=== PATIENT | female | born 1965 | race Caucasian/White ===

== ENCOUNTER 2017-02-12 10:39 | Emergency (ER) | payer MEDICARE, OTHER ==
[2017-02-12] MEDS ORDERED: SODIUM CHLORIDE 0.9% 500 ML IV STA (11:08)
[2017-02-12] MEDS ORDERED: SODIUM CHLORIDE 0.9% 1,000 ML IV STA (11:08)
[2017-02-12] MEDS ORDERED: PANTOPRAZOLE 40 MG/10 ML VIAL IVP STA (11:08)
[2017-02-12 11:39] LABS: Basophils # (A) 0.1 k/uL (0-0.2); Basophils % (A) 1 %; Eosinophils # (A) 0.4 k/uL (0-0.7); Eosinophils % (A) 5 %; HCT 45.6 % (34.0-46.0); HGB 15.3 gm/dL (11.4-16.0); Lymphocytes # (A) 3.5 k/uL (1.0-4.8); Lymphocytes % (A) 39 %; MCH 30.4 pg (25.0-35.0); MCHC 33.5 g/dL (31.0-37.0); MCV 90.7 fL (80.0-100.0); Monocytes # (A) 0.5 k/uL (0-1.0); Monocytes % (A) 6 %; Neutrophils # (A) 4.2 k/uL (1.3-7.7); Neutrophils % (A) 47 %; Platelet Count 324 k/uL (150-450); RBC 5.03 m/uL (3.80-5.40); RDW 12.6 % (11.5-15.5); WBC 8.9 k/uL (3.8-10.6)
[2017-02-12 11:49] LABS: ALT 33 U/L (9-52); AST 20 U/L (14-36); Albumin 4.2 g/dL (3.5-5.0); Alkaline Phosphatase 93 U/L (38-126); Anion Gap 9 mmol/L; Blood Urea Nitrogen 14 mg/dL (7-17); Calcium 9.9 mg/dL (8.4-10.2); Carbon Dioxide 26 mmol/L (22-30); Chloride 106 mmol/L (98-107); Glucose 164 mg/dL (74-99); Lipase 59 U/L (23-300); Magnesium 1.7 mg/dL (1.6-2.3); Potassium 4.3 mmol/L (3.5-5.1); Sodium 141 mmol/L (137-145); Total Bilirubin 0.4 mg/dL (0.2-1.3); Total Protein 7.5 g/dL (6.3-8.2)
--- NOTE | 2017-02-12 11:55 | ED ---
General Adult HPI - General Chief complaint: GI Bleed Stated complaint: rectal pain Time Seen by Provider: 02/12/17 11:07 Source: patient, RN notes reviewed, old records reviewed Mode of arrival: ambulatory Limitations: no limitations - History of Present Illness Initial comments: THis is a 52 year old female to the ED for evaluation of bowel pain, epigastric and left-sided abdominal pain. No nausea no vomiting. Patient admitted admittedly has blood in her stool. She denies feelings of lightheadedness dizziness or weakness. Denies feeling weeks ago pass out. Patient has no fevers. No other complaints. - Related Data Home Medications Medication Instructions Recorded Confirmed Insulin Glargine [Lantus] 80 - 100 unit SQ HS 05/19/14 02/12/17 Ibuprofen [Motrin] 800 mg PO Q8H PRN 10/06/15 02/12/17 Insulin Aspart [NovoLOG] See Protocol SQ AC-TID PRN 12/24/16 02/12/17 ALPRAZolam [Xanax] 0.5 mg PO HS PRN 02/12/17 02/12/17 Previous Rx's Medication Instructions Recorded Ciprofloxacin HCl [Cipro] 500 mg PO Q12HR #20 tablet 02/12/17 HYDROcodone/APAP 5-325MG [[place] 1 tab PO Q6HR PRN #20 tab 02/12/17 5-325] Ondansetron Odt [Zofran ODT] 4 mg PO Q8HR PRN #30 tab 02/12/17 metroNIDAZOLE [Flagyl] 500 mg PO TID #30 tab 02/12/17 Allergies Allergy/AdvReac Type Severity Reaction Status Date / Time nickel [Nickel] Allergy PAIN FROM Verified 02/12/17 11:30 KNEE IMPLANT Review of Systems ROS Statement: Those systems with pertinent positive or pertinent negative responses have been documented in the HPI. ROS Other: All systems not noted in ROS Statement are negative. Past Medical History Past Medical History: Asthma, COPD, Diabetes Mellitus, GERD/Reflux, Osteoarthritis (OA), Sleep Apnea/CPAP/BIPAP, Thyroid Disorder Additional Past Medical History / Comment(s): HX SUPERFICIAL BLOOD CLOTS IN LEGS. HAS VARICOSE VEINS. RLS. HAS SL SLEEP APNEA, NO TX REQUIRED. HIATAL HERNIA. THYROID NODULES, ENGLARGED. History of Any Multi-Drug Resistant Organisms: None Reported Past Surgical History: Bladder Surgery, Joint Replacement, Orthopedic Surgery Additional Past Surgical History / Comment(s): BINA TOTAL KNEE, LT X2. CTR LT HAND; LT ULNAR NERVE REPAIR; LT ANKLE SPUR, MUSCLE SURG; LT SHOULDER RECONSTRUCTION. COLONOSCOPY, EGD. D&C, BLADDER SUSPENSION W/ MESH. Past Anesthesia/Blood Transfusion Reactions: Previous Problems w/ Anesthesia, Motion Sickness Additional Past Anesthesia/Blood Transfusion Reaction / Comment(s): TAKES AWHILE TO AWAKEN AFTER KNEE REPLACEMENTS. Past Psychological History: Anxiety, Depression Smoking Status: Current every day smoker Past Alcohol Use History: None Reported Past Drug Use History: None Reported - Past Family History Mother Family Medical History: Cancer, Deep Vein Thrombosis (DVT) Additional Family Medical History / Comment(s): ESOPHAGEAL CA Father Family Medical History: Deep Vein Thrombosis (DVT) General Exam Limitations: no limitations General appearance: alert, in no apparent distress Head exam: Present: atraumatic, normocephalic, normal inspection Eye exam: Present: normal appearance, PERRL, EOMI. Absent: scleral icterus, conjunctival injection, periorbital swelling ENT exam: Present: normal exam, mucous membranes moist Neck exam: Present: normal inspection. Absent: tenderness, meningismus, lymphadenopathy Respiratory exam: Present: normal lung sounds bilaterally. Absent: respiratory distress, wheezes, rales, rhonchi, stridor Cardiovascular Exam: Present: regular rate, normal rhythm, normal heart sounds. Absent: systolic murmur, diastolic murmur, rubs, gallop, clicks GI/Abdominal exam: Present: soft, normal bowel sounds. Absent: distended, tenderness, guarding, rebound, rigid Extremities exam: Present: normal inspection, full ROM, normal capillary refill. Absent: tenderness, pedal edema, joint swelling, calf tenderness Back exam: Present: normal inspection Neurological exam: Present: alert, oriented X3, CN II-XII intact Psychiatric exam: Present: normal affect, normal mood Skin exam: Present: warm, dry, intact, normal color. Absent: rash Course Vital Signs 02/12/17 02/12/17 02/12/17 11:02 12:20 13:00 Temperature 98 F Pulse Rate 104 H 85 83 Respiratory 16 18 18 Rate Blood Pressure 124/85 129/83 129/81 O2 Sat by Pulse 95 100 92 L Oximetry 02/12/17 02/12/17 14:27 15:14 Temperature 98.2 F Pulse Rate 68 Respiratory 19 Rate Blood Pressure 103/60 O2 Sat by Pulse 98 Oximetry - Reevaluation(s) Reevaluation #1: Patient does have improvement in symptoms at this time Medical Decision Making - Medical Decision Making 52 female to ER for evaluation regarding abdominal pain and rectal pain, positive diverticulitis, patient opts for conservative therapy. Patient can be discharged home - Lab Data Result diagrams: 02/12/17 11:02/12/17 11: Lab Results 02/12/17 02/12/17 02/12/17 Range/Units 11:17 11: 11:17 WBC 8.9 (3.8-10.6) k/uL RBC 5.03 (3.80-5.40) m/uL Hgb 15.3 (11.4-16.0) gm/dL Hct 45.6 (34.0-46.0) % MCV 90.7 (80.0-100.0) fL MCH 30.4 (25.0-35.0) pg MCHC 33.5 (31.0-37.0) g/dL RDW 12.6 (11.5-15.5) % Plt Count 324 (150-450) k/uL Neutrophils % 47 % Lymphocytes % 39 % Monocytes % 6 % Eosinophils % 5 % Basophils % 1 % Neutrophils # 4.2 (1.3-7.7) k/uL Lymphocytes # 3.5 (1.0-4.8) k/uL Monocytes # 0.5 (0-1.0) k/uL Eosinophils # 0.4 (0-0.7) k/uL Basophils # 0.1 (0-0.2) k/uL PT (9.0-12.0) sec INR (<1.2) APTT (22.0-30.0) sec Sodium 141 (137-145) mmol/L Potassium 4.3 (3.5-5.1) mmol/L Chloride 106 (98-107) mmol/L Carbon Dioxide 26 (22-30) mmol/L Anion Gap 9 mmol/L BUN 14 (7-17) mg/dL Creatinine 0.45 L (0.52-1.04) mg/dL Est GFR (MDRD) Af Amer >60 (>60 ml/min/1.73 sqM) Est GFR (MDRD) Non-Af >60 (>60 ml/min/1.73 sqM) Glucose 164 H (74-99) mg/dL Calcium 9.9 (8.4-10.2) mg/dL Magnesium 1.7 (1.6-2.3) mg/dL Total Bilirubin 0.4 (0.2-1.3) mg/dL AST 20 (14-36) U/L ALT 33 (9-52) U/L Alkaline Phosphatase 93 (38-126) U/L Total Creatine Kinase 57 (30-135) U/L CK-MB (CK-2) 0.6 (0.0-2.4) ng/mL CK-MB (CK-2) Rel Index 1.1 Troponin I <0.012 (0.000-0.034) ng/mL Total Protein 7.5 (6.3-8.2) g/dL Albumin 4.2 (3.5-5.0) g/dL Lipase 59 (23-300) U/L Blood Type Blood Type Recheck Antibody Screen Spec Expiration Date 02/12/17 02/12/17 Range/Units 11:17 11:17 WBC (3.8-10.6) k/uL RBC (3.80-5.40) m/uL Hgb (11.4-16.0) gm/dL Hct (34.0-46.0) % MCV (80.0-100.0) fL MCH (25.0-35.0) pg MCHC (31.0-37.0) g/dL RDW (11.5-15.5) % Plt Count (150-450) k/uL Neutrophils % % Lymphocytes % % Monocytes % % Eosinophils % % Basophils % % Neutrophils # (1.3-7.7) k/uL Lymphocytes # (1.0-4.8) k/uL Monocytes # (0-1.0) k/uL Eosinophils # (0-0.7) k/uL Basophils # (0-0.2) k/uL PT 9.9 (9.0-12.0) sec INR 1.0 (<1.2) APTT 21.9 L (22.0-30.0) sec Sodium (137-145) mmol/L Potassium (3.5-5.1) mmol/L Chloride (98-107) mmol/L Carbon Dioxide (22-30) mmol/L Anion Gap mmol/L BUN (7-17) mg/dL Creatinine (0.52-1.04) mg/dL Est GFR (MDRD) Af Amer (>60 ml/min/1.73 sqM) Est GFR (MDRD) Non-Af (>60 ml/min/1.73 sqM) Glucose (74-99) mg/dL Calcium (8.4-10.2) mg/dL Magnesium (1.6-2.3) mg/dL Total Bilirubin (0.2-1.3) mg/dL AST (14-36) U/L ALT (9-52) U/L Alkaline Phosphatase (38-126) U/L Total Creatine Kinase (30-135) U/L CK-MB (CK-2) (0.0-2.4) ng/mL CK-MB (CK-2) Rel Index Troponin I (0.000-0.034) ng/mL Total Protein (6.3-8.2) g/dL Albumin (3.5-5.0) g/dL Lipase (23-300) U/L Blood Type B Positive Blood Type Recheck CABO Indicated Antibody Screen NEGATIVE Spec Expiration Date 02/12/2017 - 1217 - Radiology Data Radiology results: report reviewed (CT of pelvis positive for diverticulitis), image reviewed Disposition Clinical Impression: Acute diverticulitis Disposition: HOME SELF-CARE Condition: Good Instructions: Diverticulitis (ED) Prescriptions: Ciprofloxacin HCl [Cipro] 500 mg PO Q12HR #20 tablet HYDROcodone/APAP 5-325MG [Caroline 5-325] 1 tab PO Q6HR PRN #20 tab PRN Reason: Pain metroNIDAZOLE [Flagyl] 500 mg PO TID #30 tab Ondansetron Odt [Zofran ODT] 4 mg PO Q8HR PRN #30 tab PRN Reason: nausea/vomiting Referrals: Dana Akbar MD [Primary Care Provider] - 1-2 days
[2017-02-12 11:59] LABS: Creatine Kinase 57 U/L (30-135)
[2017-02-12 12:08] LABS: Partial Thromboplastin Time 21.9 sec (22.0-30.0); Prothrombin Time 9.9 sec (9.0-12.0)
[2017-02-12 12:12] LABS: Creatine Kinase MB 0.6 ng/mL (0.0-2.4); Troponin I <0.012 ng/mL (0.000-0.034)
[2017-02-12] MEDS ORDERED: RX INFO: IV CONTRAST WAS GIVEN 1 EACH MISC MISCELLANE PRN (13:11)
[2017-02-12 14:29] VITALS: BP 103/60; PULSE 68; RESP 19
--- NOTE | 2017-02-12 14:39 | CT ---
EXAMINATION TYPE: CT abdomen pelvis w con DATE OF EXAM: 02/12/2017 COMPARISON: NONE HISTORY: Rectal pain CT DLP: 2197.3 mGycm CONTRAST: CT scan of the abdomen and pelvis is performed without Oral Contrast and with IV Contrast, patient in jected with 100 mL of Omnipaque 300. FINDINGS: LUNG BASES-: No visible nodule. No infiltrate. LIVER/GB: No calcified gallstones. No space occupying hepatic lesion. Biliary tree is of normal ca liber. There is fatty hepatic infiltration. PANCREAS: No inflammation. No distinct mass. SPLEEN: No splenic enlargement. No lesion seen. ADRENALS: No nodule. No thickening. KIDNEYS/BLADDER: No hydronephrosis. No nephrolithiasis. No disctinct renal mass. Urinary bladder g rossly unremarkable. BOWEL: Normal appendix. Normal bowel caliber. No inflammation. At the descending colonic/sigmoid co lonic junction there is mild inflammatory change noted compatible with mild diverticulitis. No eviden ce of perforation or abscess. GENITAL ORGANS: No gross abnormality. LYMPH NODES: No greater than 1cm abdominal or pelvic lymph nodes are appreciated. AORTA: No significant abnormality. OSSEOUS STRUCTURES: No significant abnormality is seen. OTHER: No significant additional abnormality is seen. IMPRESSION: 1. Mild acute diverticulitis.
[2017-02-12 15:16] VITALS: TEMP 98.2
--- NOTE | 2017-02-15 03:55 | CDI ---
Documentation Clarification OP Dear Jean Marie BENITEZ, DO Please do addendum to ED report for HPI , Physical exam and MDM. Thank you, Heather Aldana Plant General Manager If you have any question, Please contact electrical project manager at [phone] [facility]
== END 2017-02-12 15:15 | disposition home or self-care (01) ==
LOC: EC 10:39
DX: K57.92 Diverticulitis of intestine, part unspecified, without perforation or abscess without bleeding (principal); E11.9 Type 2 diabetes mellitus without complications; F17.200 Nicotine dependence, unspecified, uncomplicated; Z79.4 Long term (current) use of insulin; Z91.09 Other allergy status, other than to drugs and biological substances
CPT/HCPCS: 36415; 86900; 86901; 80053; 82550; 82553; 83690; 83735; 84484; 85025; 85610; 85730; 86850; 74177; 99285; 96374; 96361 ×4; Q9967; C9113

== ENCOUNTER 2017-03-24 09:01 | Inpatient (IN) | payer MEDICARE, OTHER ==
[2017-03-23 09:37] VITALS: BMI 39.4
[~2017-03-24 09:01] MED LIST: HEPARIN SODIUM,PORCINE 5,000 UNIT/ML 1 ML VIAL SQ ONE; HYDROmorphone 0.5 MG/0.5 ML SYRINGE IVP PRN; LIDOCAINE 1% 20 ML VIAL (10MG/ML) FOR IV START INTRADERMA PRN; ceFAZolin IN SWFI 2 GM/20 ML SYRINGE IVP ONE; metroNIDAZOLE-NS PMX 500 MG in SALINE 1 100ML.BAG IVPB ONE
[2017-03-24] MEDS: LACTATED RINGERS 1,000 ML IV SCH ×2 (10:45→19:26)
[2017-03-24 10:55] LABS: Glucose,Whole Blood 237 mg/dL (75-99)
[2017-03-24 10:59] LABS: Basophils # (A) 0.1 k/uL (0-0.2); Basophils % (A) 1 %; Eosinophils # (A) 0.3 k/uL (0-0.7); Eosinophils % (A) 4 %; HCT 47.2 % (34.0-46.0); HGB 15.4 gm/dL (11.4-16.0); Lymphocytes # (A) 2.9 k/uL (1.0-4.8); Lymphocytes % (A) 34 %; MCHC 32.6 g/dL (31.0-37.0); MCV 92.1 fL (80.0-100.0); Mean Platelet Volume 7.1; Monocytes # (A) 0.5 k/uL (0-1.0); Monocytes % (A) 6 %; Neutrophils # (A) 4.6 k/uL (1.3-7.7); Neutrophils % (A) 54 %; Platelet Count 304 k/uL (150-450); RBC 5.13 m/uL (3.80-5.40); RDW 12.7 % (11.5-15.5); WBC 8.6 k/uL (3.8-10.6)
[2017-03-24] MEDS ORDERED: MIDAZOLAM 2 MG/2 ML VIAL IVP ONE (11:06)
[2017-03-24] MEDS ORDERED: fentaNYL (PF) 50 MCG/ML 2 ML AMP IVP ONE (11:07)
[2017-03-24 11:15] LABS: Anion Gap 11 mmol/L; Blood Urea Nitrogen 12 mg/dL (7-17); Carbon Dioxide 25 mmol/L (22-30); Chloride 105 mmol/L (98-107); Potassium 4.2 mmol/L (3.5-5.1); Sodium 141 mmol/L (137-145)
[2017-03-24] MEDS ORDERED: NALOXONE 0.4 MG/ML 1 ML VIAL IV PRN (11:15)
[2017-03-24] MEDS ORDERED: BUPIVACAINE (PF) 0.5% 31.3 ML, HYDROMORPHONE (PF) 5 MG in SODIUM CHLORIDE 0.9% 218 ML EPIDURAL PRN (11:15)
--- NOTE | 2017-03-24 11:16 | P.GSHP ---
History of Present Illness H&P Date: 03/24/17 Chief Complaint: Diverticulitis This a 52-year-old female with a chronic history of diverticulitis. Patient had complaints of left lower quadrant pain and intermittent rectal bleeding. She sees Dr. Coleman as an outpatient. Past Medical History Past Medical History: Asthma, COPD, Diabetes Mellitus, GERD/Reflux, Osteoarthritis (OA), Sleep Apnea/CPAP/BIPAP, Thyroid Disorder Additional Past Medical History / Comment(s): HX SUPERFICIAL BLOOD CLOTS IN LEGS. HAS VARICOSE VEINS. RLS. HAS SLEEP APNEA-NO TX REQUIRED. HIATAL HERNIA , hx. h-pylori, THYROID NODULES, diverticulitis recently History of Any Multi-Drug Resistant Organisms: None Reported Past Surgical History: Bladder Surgery, Joint Replacement, Orthopedic Surgery Additional Past Surgical History / Comment(s): BINA TOTAL KNEE, LT X2. CTR LT HAND; LT ULNAR NERVE REPAIR; LT ANKLE SPUR, MUSCLE SURG; LT SHOULDER RECONSTRUCTION. COLONOSCOPY, EGD. D&C, BLADDER SUSPENSION W/ MESH. Past Anesthesia/Blood Transfusion Reactions: Previous Problems w/ Anesthesia, Motion Sickness Additional Past Anesthesia/Blood Transfusion Reaction / Comment(s): slow to wake up @times Past Psychological History: Anxiety, Depression Additional Psychological History / Comment(s): NO CURRENT PROB Smoking Status: Current every day smoker Past Alcohol Use History: None Reported Additional Past Alcohol Use History / Comment(s): SMOKES LITTLE CIGARS/ CIGARETTES < 1/2 PPD, X40 YEARS. Past Drug Use History: None Reported - Past Family History Mother Family Medical History: Cancer, Deep Vein Thrombosis (DVT) Additional Family Medical History / Comment(s): ESOPHAGEAL CA Father Family Medical History: Deep Vein Thrombosis (DVT) Medications and Allergies Home Medications Medication Instructions Recorded Confirmed Type Insulin Glargine [Lantus] 100 unit SQ HS 05/19/14 03/24/17 History Ibuprofen [Motrin] 800 mg PO Q8H PRN 10/06/15 03/23/17 History Insulin Aspart [NovoLOG] 10 - 20 unit SQ AC-TID 12/24/16 03/24/17 History ALPRAZolam [Xanax] 0.5 mg PO HS PRN 02/12/17 03/24/17 History HYDROcodone/APAP 5-325MG [[place] 1 tab PO Q6HR PRN #20 tab 02/12/17 03/24/17 Rx 5-325] Albuterol Inhaler [Ventolin Hfa 1 - 2 puff INHALATION Q6HR PRN 03/23/17 History Inhaler] Cyclobenzaprine [Flexeril] 10 mg PO TID PRN 03/23/17 03/24/17 History Allergies Allergy/AdvReac Type Severity Reaction Status Date / Time nickel [Nickel] Allergy PAIN FROM Verified 03/23/17 08:55 KNEE IMPLANT Surgical - Exam Vital Signs Temp Pulse Resp BP Pulse Ox 98.5 F 96 18 120/64 95 03/24/17 10:15 03/24/17 10:15 03/24/17 10:15 03/24/17 10:15 03/24/17 10:15 - General well developed, no distress - Eyes PERRL - ENT normal pinna - Neck no masses - Respiratory normal expansion - Cardiovascular Rhythm: regular - Abdomen Left lower quadrant pain Abdomen: soft Results - Labs 03/24/17 10:40 Abnormal Lab Results - Last 24 Hours (Table) 03/24/17 03/24/17 Range/Units 10:40 10:40 Hct 47.2 H (34.0-46.0) % POC Glucose (mg/dL) 237 H (75-99) mg/dL Assessment and Plan Assessment: Chronic diverticulitis. Patient will undergo low anterior resection today. Patient's aware the risk of surgery including possible colostomy, bleeding and wound infection.
[2017-03-24] MEDS ORDERED: DEXAMETHASONE SOD PHOSPHATE 10 MG/ML 1 ML VIAL IV ONE (11:22)
[2017-03-24] MEDS ORDERED: ONDANSETRON 4 MG/2 ML VIAL IVP ONE (11:24)
[2017-03-24] MEDS ORDERED: GLYCOPYRROLATE 0.2 MG/ML 2 ML VIAL ONE (11:46)
[2017-03-24] MEDS ORDERED: HYDROmorphone (PF) 1 MG/ML ONE (11:46)
[2017-03-24] MEDS ORDERED: LIDOCAINE 1% INJ 10MG/ML (20 ML MDV) ONE (11:46)
[2017-03-24] MEDS ORDERED: ROCURONIUM BROMIDE 10 MG/ML 10 ML VIAL IV ONE (11:46)
[2017-03-24] MEDS ORDERED: SUCCINYLCHOLINE CHLORIDE 100 MG/5 ML SYR IV ONE (11:46)
[2017-03-24] MEDS ORDERED: PROPOFOL 10 MG/ML 20 ML VIAL IV ONE (11:46)
[2017-03-24] MEDS ORDERED: NEOSTIGMINE 1 MG/ML 10 ML VIAL ONE (11:46)
[2017-03-24] MEDS ORDERED: SODIUM CHLORIDE 0.9% 50 ML with CLINDAMYCIN 600 MG IV ONE ×2 (12:22)
[2017-03-24] MEDS ORDERED: HYDROmorphone 0.5 MG/0.5 ML SYRINGE IVP PRN (13:24)
[2017-03-24] MEDS ORDERED: BENZOCAINE/MENTHOL LOZENG 1 EACH LOZENGE MUCOUS MEM PRN (13:24)
[2017-03-24 13:54] LABS: Glucose,Whole Blood 203 mg/dL (75-99)
[2017-03-24] MEDS ORDERED: diphenhydrAMINE 50 MG/ML 1 ML VIAL IVP ONE (13:58)
[2017-03-24] MEDS ORDERED: INSULIN REGULAR 100 UNIT/ML VIAL SQ ONE (14:06)
[2017-03-24] MEDS ORDERED: INSULIN ASPART 100 UNIT/ML 1 ML 10 ML VIAL SQ ONE (14:11)
[2017-03-24] MEDS ORDERED: D5-0.45% NACL WITH KCL 20MEQ/L 1,000 ML IV SCH (15:00)
[2017-03-24] MEDS ORDERED: SODIUM CHLORIDE 0.9% 1,000 ML IV ONE (15:07)
[2017-03-24 16:33] LABS: Basophils # (A) 0.1 k/uL (0-0.2); Basophils % (A) 0 %; Eosinophils # (A) 0.1 k/uL (0-0.7); Eosinophils % (A) 1 %; HCT 44.4 % (34.0-46.0); HGB 14.2 gm/dL (11.4-16.0); Lymphocytes # (A) 0.8 k/uL (1.0-4.8); Lymphocytes % (A) 6 %; MCH 30.2 pg (25.0-35.0); MCV 94.5 fL (80.0-100.0); Mean Platelet Volume 7.4; Monocytes # (A) 0.3 k/uL (0-1.0); Monocytes % (A) 2 %; Neutrophils # (A) 13.4 k/uL (1.3-7.7); Neutrophils % (A) 91 %; Platelet Count 274 k/uL (150-450); RBC 4.69 m/uL (3.80-5.40); RDW 13.7 % (11.5-15.5); WBC 14.7 k/uL (3.8-10.6)
[2017-03-24 16:45] LABS: Anion Gap 8 mmol/L; Blood Urea Nitrogen 15 mg/dL (7-17); Calcium 8.9 mg/dL (8.4-10.2); Carbon Dioxide 28 mmol/L (22-30); Chloride 106 mmol/L (98-107); Glucose 174 mg/dL (74-99); Potassium 4.4 mmol/L (3.5-5.1); Sodium 142 mmol/L (137-145)
[2017-03-24 18:08] LABS: Glucose,Whole Blood 157 mg/dL (75-99)
[2017-03-24] MEDS: INSULIN ASPART 100 UNIT/ML 1 ML 10 ML VIAL SQ SCH (19:33)
[2017-03-24] MEDS: HEPARIN SODIUM,PORCINE 5,000 UNIT/ML 1 ML VIAL SQ SCH (19:36)
[2017-03-24] MEDS: NICOTINE 14MG/24HR PATCH TRANSDERM SCH (19:40)
[2017-03-24] MEDS ORDERED: SODIUM CHLORIDE 0.9% 500 ML IV ONE (20:20)
[2017-03-24] MEDS: IPRATROPIUM-ALBUTEROL 3 ML NEB INHALATION SCH (20:53)
[2017-03-24 21:13] LABS: Amorphous Sediment,Urine Occasional /hpf; Appearance,Urine Turbid (Clear); Bilirubin,Urine Negative (Negative); Blood,Urine Moderate (Negative); Color,Urine Light Orange; Glucose,Urine (UA) 1+ (Negative); Ketones,Urine Trace (Negative); Leukocyte Esterase,Urine Small (Negative); Mucus,Urine Few /hpf; Nitrite,Urine Negative (Negative); PH, Urine 5.5 (5.0-8.0); Protein,Urine 1+ (Negative); RBC,Urine 29 /hpf (0-5); Specific Gravity,Urine 1.024 (1.001-1.035); Squamous Epithelial Cell,Urine 2 /hpf (0-4); Urobilinogen,Urine <2.0 mg/dL (<2.0)
[2017-03-24 21:14] LABS: Glucose,Whole Blood 168 mg/dL (75-99)
[2017-03-24 21:29] LABS: ALT 32 U/L (9-52); AST 18 U/L (14-36); Albumin 3.3 g/dL (3.5-5.0); Alkaline Phosphatase 82 U/L (38-126); Anion Gap 7 mmol/L; Blood Urea Nitrogen 16 mg/dL (7-17); Calcium 8.7 mg/dL (8.4-10.2); Carbon Dioxide 25 mmol/L (22-30); Chloride 108 mmol/L (98-107); Glucose 174 mg/dL (74-99); Potassium 4.3 mmol/L (3.5-5.1); Sodium 140 mmol/L (137-145); Total Bilirubin 0.3 mg/dL (0.2-1.3)
--- NOTE | 2017-03-24 21:35 | XR ---
EXAMINATION: XR chest 1V portable DATE AND TIME: 03/24/2017 8:45 PM ORDERING PROVIDER: Arie Webber MD CLINICAL INDICATION: atelectasis TECHNIQUE: Upright AP portable COMPARISON: None. DESCRIPTION: The lungs are clear. The pleural spaces are negative. The cardiac silhouette is not enlarged. The mediastinal and pleural silhouettes are unremarkable. The skeletal structures are intact without focal findings. The soft tissues are unremarkable. IMPRESSION: NO ACUTE PROCESS.
[2017-03-24] MEDS: INSULIN DETEMIR 100 UNIT/ML 10 ML VIAL SQ SCH (22:14)
[2017-03-24] MEDS: FAMOTIDINE 20 MG/2 ML VIAL IV SCH (22:14)
[2017-03-24] MEDS: PANTOPRAZOLE 40 MG/10 ML VIAL IVP SCH (22:15)
[2017-03-24] MEDS: SODIUM CHLORIDE 0.9% 1,000 ML IV SCH (22:15)
[2017-03-25 00:10] LABS: Glucose,Whole Blood 161 mg/dL (75-99)
[2017-03-25] MEDS: INSULIN ASPART 100 UNIT/ML 1 ML 10 ML VIAL SQ SCH ×6 (01:02→20:50)
[2017-03-25] MEDS: HEPARIN SODIUM,PORCINE 5,000 UNIT/ML 1 ML VIAL SQ SCH ×4 (01:03→23:13)
[2017-03-25] MEDS ORDERED: SODIUM CHLORIDE 0.9% 500 ML IV ONE ×2 (01:03→01:24)
[2017-03-25 02:14] LABS: Hemoglobin A1C 10.3 % (4.0-6.0)
[2017-03-25 02:39] LABS: Basophils % (A) 0 %; Eosinophils # (A) 0.1 k/uL (0-0.7); Eosinophils % (A) 0 %; HCT 39.8 % (34.0-46.0); HGB 12.4 gm/dL (11.4-16.0); Lymphocytes # (A) 1.6 k/uL (1.0-4.8); Lymphocytes % (A) 13 %; MCH 29.6 pg (25.0-35.0); MCHC 31.2 g/dL (31.0-37.0); MCV 94.9 fL (80.0-100.0); Mean Platelet Volume 6.9; Monocytes # (A) 0.6 k/uL (0-1.0); Monocytes % (A) 5 %; Neutrophils # (A) 10.5 k/uL (1.3-7.7); Neutrophils % (A) 82 %; Platelet Count 256 k/uL (150-450); RBC 4.19 m/uL (3.80-5.40); RDW 12.7 % (11.5-15.5); WBC 12.9 k/uL (3.8-10.6)
[2017-03-25 06:04] LABS: Glucose,Whole Blood 111 mg/dL (75-99)
[2017-03-25] MEDS: ONDANSETRON 4 MG/2 ML VIAL IVP PRN ×2 (06:37→14:33)
[2017-03-25] MEDS: SODIUM CHLORIDE 0.9% 1,000 ML IV SCH ×4 (06:38→23:31)
[2017-03-25] MEDS ORDERED: NALOXONE 0.4 MG/ML 1 ML VIAL IV PRN (06:44)
--- NOTE | 2017-03-25 07:09 | CONS ---
CONSULTATION THE REASON FOR CONSULTATION: Advice regarding hypotension and other medical issues requested by Dr. Gonzalez. HISTORY OF PRESENT ILLNESS: This 52-year-old woman with a past medical history of multiple medical problems including asthma, COPD, diabetes, GERD, DJD being followed by Dr. Akbar in the outpatient setting underwent a low anterior rectosigmoid resection for diverticulitis by Dr. Gonzalez. Postoperatively, the patient noted to be hypotensive. Patient also had some shortness of breath and some cough also. The patient is a smoker. There is no history of fever, rigors. No history of headache, loss of consciousness, seizures. No chest pain, palpitations, hematochezia or melena at this time. The patient has some erythema around the oral cavity, face. PAST MEDICAL HISTORY: History of asthma, COPD, diabetes, GERD, DJD, sleep apnea, history of bladder surgery. MEDICATIONS: Medications prior to admission include. 1. Lantus 100 units subcu q.h.s. 2. NovoLog 10 to 20 a.c. t.i.d. 3. Motrin 800 mg q.8 p.r.n. 4. [place] 5 mg q.6 p.r.n. 5. Flexeril 10 mg t.i.d. p.r.n. 6. Ventolin HFA 1 to 2 puffs q.6 p.r.n. 7. Xanax 0.5 mg q.h.s. ALLERGIES: Allergies are NICKEL. FAMILY HISTORY: History of cancer, DVT, esophageal cancer. SOCIAL HISTORY: History of smoking. No history of alcohol intake. REVIEW OF SYSTEMS: ENT: No diminished hearing or diminished vision. CARDIOVASCULAR SYSTEM: As mentioned earlier. RESPIRATORY SYSTEM: As mentioned earlier. GI: As mentioned earlier. : No dysuria. NERVOUS SYSTEM: No numbness or weakness. ALLERGY/IMMUNOLOGY: neg MUSCULOSKELETAL: As mentioned earlier. HEMATOLOGY/ONCOLOGY: No history of anemia. ENDOCRINE: Diabetes mellitus. CONSTITUTIONAL: As mentioned earlier. DERMATOLOGY: Negative. RHEUMATOLOGY: Negative. PSYCHIATRY: As mentioned earlier. PHYSICAL EXAMINATION: The patient is alert and oriented x3. Pulse 105, blood pressure 94/47, respirations 16, temp is normal, pulse ox 94% on 3 L. HEENT: Conjunctivae normal. Oral mucosa moist. Neck is no jugular venous distention. No carotid bruit. No lymph node enlargement. CARDIOVASCULAR: S1 and S2 muffled. No S3 or S4. RESPIRATORY: Breath sounds diminished at the bases. A few scattered rhonchi and crackles. Expiratory wheezing present. ABDOMEN: Soft, nontender. No mass palpable. LEGS: No edema, no swelling. NERVOUS SYSTEM: Higher function as mentioned earlier. Moves all 4 limbs. No focal motor or sensory deficits. LYMPHATICS: No lymphadenopathy of the neck, axillae or groin. SKIN: No ulcer, rash or bleeding. LAB STUDIES: WBC 14.7, hemoglobin 14.2. ASSESSMENT: 1. Status post low anterior rectosigmoid resection for diverticulitis. 2. Postoperative hypotension secondary to hypovolemia. 3. Increased WBC. 4. Diabetes mellitus type 2. 5. Chronic obstructive pulmonary disease, asthma. 6. History of gastroesophageal reflux disease. 7. History of degenerative joint disease. 8. Sleep apnea. 9. History hypothyroidism. 10.History of bladder surgery. 11.Anxiety, depression. 12.History of current nicotine dependence. RECOMMENDATIONS AND DISCUSSION: In this 52-year-old woman who presented with multiple complex medical issues, will monitor the patient closely, continue the current medications, continue symptomatic treatment. I would recommend bolus IV fluids followed by 0.9 at 100 to 125 mL/ hour. labs otherwise UA with micro. Monitor blood sugars closely. Half the dose of Lantus may be initiated now to avoid the possibility of any ketosis. Otherwise the full dose may be converted upon patient receiving increase in dose, increase in quantity of food. Otherwise Accu-Cheks a.c. and at bedtime and continue to monitor. Change the IV fluids and further condition follow. A copy of dictation forwarded to Dr. Akbar who is the primary physician. MMODL / IJN: [id number] / MTDD
[2017-03-25 07:22] LABS: Glucose,Whole Blood 103 mg/dL (75-99)
[2017-03-25] MEDS: IPRATROPIUM-ALBUTEROL 3 ML NEB INHALATION SCH ×3 (07:56→19:24)
--- NOTE | 2017-03-25 08:18 | P.PN ---
Subjective Progress Note Date: 03/25/17 52-year-old female seen and examined. No new events. Patient denies nausea vomiting. States is passing gas rectally no stool. Chief complaint this morning is dizziness lightheadedness "I think it's from the epidural" did note the patient's blood pressure systolic is in the 80s IV fluid at 150 an hour currently has an epidural per recommendations of anesthesia for pain control Objective - Vital Signs Vital signs: Vital Signs Temp 98.2 F 03/25/17 00:30 Pulse 69 03/25/17 07:56 Resp 16 03/25/17 00:30 BP 86/56 03/25/17 00:30 Pulse Ox 95 03/25/17 07:56 Intake & Output 03/24/17 03/25/17 03/25/17 18:59 06:59 18:59 Intake Total 1904 Output Total 250 530 Balance 1654 -530 Weight 104.326 kg Intake: IV 1904 Output: Urine 200 530 Uretheral (Marquez) 400 Estimated Blood Loss 50 Other: Voiding Method Indwelling Catheter Indwelling Catheter - Exam Physical exam 52-year-old female sitting up in bed pleasant cooperative oriented 3 Lungs adequate air movement bilaterally no wheezing noted Heart S1-S2 audible and regular denying chest pain Abdomen abdominal binder in place surgical dressing dry few hypoactive bowel tones nondistended indwelling Marquez catheter in place reports no nausea vomiting Extremities Venodyne's on to the bilateral lower extremities - Labs CBC & Chem 7: 03/25/17 02:23 03/24/17 20:48 Labs: Abnormal Lab Results - Last 24 Hours (Table) 03/24/17 03/24/17 03/24/17 Range/Units 10:40 10:40 10:40 WBC (3.8-10.6) k/uL Hct 47.2 H (34.0-46.0) % Neutrophils # (1.3-7.7) k/uL Lymphocytes # (1.0-4.8) k/uL Chloride (98-107) mmol/L Creatinine 0.44 L (0.52-1.04) mg/dL Glucose (74-99) mg/dL POC Glucose (mg/dL) 237 H (75-99) mg/dL Hemoglobin A1c (4.0-6.0) % Total Protein (6.3-8.2) g/dL Albumin (3.5-5.0) g/dL Urine Appearance (Clear) Urine Protein (Negative) Urine Glucose (UA) (Negative) Urine Ketones (Negative) Urine Blood (Negative) Ur Leukocyte Esterase (Negative) Urine RBC (0-5) /hpf Amorphous Sediment (None) /hpf Urine Mucus (None) /hpf 03/24/17 03/24/17 03/24/17 Range/Units 10:40 13:51 16:14 WBC 14.7 H (3.8-10.6) k/uL Hct (34.0-46.0) % Neutrophils # 13.4 H (1.3-7.7) k/uL Lymphocytes # 0.8 L (1.0-4.8) k/uL Chloride (98-107) mmol/L Creatinine (0.52-1.04) mg/dL Glucose (74-99) mg/dL POC Glucose (mg/dL) 203 H (75-99) mg/dL Hemoglobin A1c 10.3 H (4.0-6.0) % Total Protein (6.3-8.2) g/dL Albumin (3.5-5.0) g/dL Urine Appearance (Clear) Urine Protein (Negative) Urine Glucose (UA) (Negative) Urine Ketones (Negative) Urine Blood (Negative) Ur Leukocyte Esterase (Negative) Urine RBC (0-5) /hpf Amorphous Sediment (None) /hpf Urine Mucus (None) /hpf 03/24/17 03/24/17 03/24/17 Range/Units 16:14 18:06 20:25 WBC (3.8-10.6) k/uL Hct (34.0-46.0) % Neutrophils # (1.3-7.7) k/uL Lymphocytes # (1.0-4.8) k/uL Chloride (98-107) mmol/L Creatinine 0.50 L (0.52-1.04) mg/dL Glucose 174 H (74-99) mg/dL POC Glucose (mg/dL) 157 H (75-99) mg/dL Hemoglobin A1c (4.0-6.0) % Total Protein (6.3-8.2) g/dL Albumin (3.5-5.0) g/dL Urine Appearance Turbid H (Clear) Urine Protein 1+ H (Negative) Urine Glucose (UA) 1+ H (Negative) Urine Ketones Trace H (Negative) Urine Blood Moderate H (Negative) Ur Leukocyte Esterase Small H (Negative) Urine RBC 29 H (0-5) /hpf Amorphous Sediment Occasional H (None) /hpf Urine Mucus Few H (None) /hpf 03/24/17 03/24/17 03/25/17 Range/Units 20:48 20:56 00:07 WBC (3.8-10.6) k/uL Hct (34.0-46.0) % Neutrophils # (1.3-7.7) k/uL Lymphocytes # (1.0-4.8) k/uL Chloride 108 H (98-107) mmol/L Creatinine 0.49 L (0.52-1.04) mg/dL Glucose 174 H (74-99) mg/dL POC Glucose (mg/dL) 168 H 161 H (75-99) mg/dL Hemoglobin A1c (4.0-6.0) % Total Protein 6.0 L (6.3-8.2) g/dL Albumin 3.3 L (3.5-5.0) g/dL Urine Appearance (Clear) Urine Protein (Negative) Urine Glucose (UA) (Negative) Urine Ketones (Negative) Urine Blood (Negative) Ur Leukocyte Esterase (Negative) Urine RBC (0-5) /hpf Amorphous Sediment (None) /hpf Urine Mucus (None) /hpf 03/25/17 03/25/17 03/25/17 Range/Units 02:23 06:01 07:16 WBC 12.9 H (3.8-10.6) k/uL Hct (34.0-46.0) % Neutrophils # 10.5 H (1.3-7.7) k/uL Lymphocytes # (1.0-4.8) k/uL Chloride (98-107) mmol/L Creatinine (0.52-1.04) mg/dL Glucose (74-99) mg/dL POC Glucose (mg/dL) 111 H 103 H (75-99) mg/dL Hemoglobin A1c (4.0-6.0) % Total Protein (6.3-8.2) g/dL Albumin (3.5-5.0) g/dL Urine Appearance (Clear) Urine Protein (Negative) Urine Glucose (UA) (Negative) Urine Ketones (Negative) Urine Blood (Negative) Ur Leukocyte Esterase (Negative) Urine RBC (0-5) /hpf Amorphous Sediment (None) /hpf Urine Mucus (None) /hpf Microbiology - Last 24 Hours (Table) 03/24/17 20:25 Urine Culture - Preliminary Urine,Catheterized Assessment and Plan Assessment: Impression History of chronic diverticulitis History of sleep apnea with CPAP therapy Morbid obesity BMI 39 Status post March 24 low anterior rectosigmoid resection for diverticulitis with intermittent episodes of rectal bleeding Current every day smoker Plan Continue postop surgical care Pain control per anesthesia epidural in place Continue the use of the incentive spirometer Increase activity Respiratory treatments as ordered once epidural was address the indwelling Marquez catheter can be removed DVT and GI prophylaxis The above impression and plan of care have been discussed and directed by signing physician. Lesly Pfeiffer nurse practitioner acting as scribe for signing physician.
[2017-03-25] MEDS: HYDROmorphone PCA 5 MG/25 ML SYRINGE IV PRN ×2 (08:42→23:09)
--- NOTE | 2017-03-25 08:44 | P.PN ---
Progress Note - Text Anesthesia postoperative day 1. Patient is status post low anterior rectosigmoid resection under general anesthesia with an epidural catheter placed for postoperative pain relief. With ropivacaine 0.0625% and Dilaudid 20 mcg/mL running at 5 mL/h patient complained of lightheadedness some nausea and remained relatively hypotensive with systolic pressures in the 80s despite 3 500 mL saline boluses. Patient wishes the epidural catheter be removed. The infusion is been off for approximately 3 hours and the patient is sitting up in bed eating breakfast and relates that she is reasonably comfortable and wishes to continue without the epidural and with alternative analgesia. We will see to the patient's wishes.
[2017-03-25] MEDS: PANTOPRAZOLE 40 MG/10 ML VIAL IVP SCH (10:22)
[2017-03-25] MEDS: NICOTINE 14MG/24HR PATCH TRANSDERM SCH (10:22)
[2017-03-25] MEDS: FAMOTIDINE 20 MG/2 ML VIAL IV SCH (10:23)
--- NOTE | 2017-03-25 11:38 | P.OP ---
Date of Procedure: 03/24/17 Preoperative Diagnosis: Diverticulitis Postoperative Diagnosis: Diverticulitis Procedure(s) Performed: Low anterior resection Anesthesia: SOFIA Surgeon: David Gonzalez Estimated Blood Loss (ml): 25 Pathology: other (Sigmoid colon) Condition: stable Disposition: PACU Description of Procedure: DESCRIPTION OF PROCEDURE: The patient was placed on the operating table in the supine position. Patient received a general anesthesia. Patient was then placed in the dorsal lithotomy position. The patients abdomen was prepped and draped in the usual sterile fashion. Through a low midline incision, the abdomen was entered. The Grawn retractor was placed in the wound. The stomach appeared normal. The small bowel appeared normal. The liver appeared normal. The right colon and transverse colon appeared normal. On the left colon, there was an extensive diverticulosis noted. The sigmoid colon was then mobilized by dividing the white line of Toldt with electrocautery. At this point, the proximal sigmoid colon was transected with a GI stapler after a window had been made in the mesentery. The distal sigmoid colon was then dissected. Mesentery was taken down between Nupur clamps and ligated with #0 silk ties. At a point beyond the lesion, the bowel was then transected with a Proximate stapler. This was then removed. The splenic flexure was then taken down in order to provide adequate lengthening of the sigmoid colon. At this point, the auto purse-string suture device was placed across the proximal colon and fired. The colon was then opened. The 29 mm EEA anvil was then placed into the colon and then the purse- string was secured. The EEA stapler device was then placed in the patients anus and passed into the rectum. The nail for the EEA was then brought out through the distal rectum and then attached to the anvil. The EEA stapler device was then fired. The anastomosis was inspected. There were 2 good donuts of tissue removed from the EEA stapler. The anastomosis was then tested under water and there was no air leak seen. At this point the abdomen was then irrigated. There was no bleeding seen. The fascia was then closed with double stranded #1 PDS. The skin was closed with ernesto. The patient tolerated the procedure well.
[2017-03-25 11:59] LABS: Glucose,Whole Blood 165 mg/dL (75-99)
[2017-03-25] MEDS: LACTATED RINGERS 1,000 ML IV SCH (16:53)
[2017-03-25 17:11] LABS: Glucose,Whole Blood 117 mg/dL (75-99)
[2017-03-25 17:15] LABS: Hemoglobin A1C 10.4 % (4.0-6.0)
[2017-03-25 17:24] LABS: ALT 27 U/L (9-52); AST 21 U/L (14-36); Alkaline Phosphatase 86 U/L (38-126); Anion Gap 6 mmol/L; Blood Urea Nitrogen 13 mg/dL (7-17); Calcium 8.4 mg/dL (8.4-10.2); Carbon Dioxide 26 mmol/L (22-30); Chloride 109 mmol/L (98-107); Glucose 137 mg/dL (74-99); Potassium 3.5 mmol/L (3.5-5.1); Sodium 141 mmol/L (137-145); Total Bilirubin 0.4 mg/dL (0.2-1.3); Total Protein 5.6 g/dL (6.3-8.2)
[2017-03-25 20:50] LABS: Glucose,Whole Blood 119 mg/dL (75-99)
[2017-03-25] MEDS: INSULIN DETEMIR 100 UNIT/ML 10 ML VIAL SQ SCH (20:50)
--- NOTE | 2017-03-25 22:06 | PN ---
PROGRESS NOTE DATE OF SERVICE: 03/25/2017. INTERVAL HISTORY: This 52-year-old woman was admitted after a low anterior rectosigmoid resection for diverticulitis, improving significantly. Patient is having relative hypotension. No chest pain. No palpitations. No fever. EXAM: Alert and oriented x2. Pulse is 79, blood pressure 171/87, respirations 18, temperature 98.4, pulse ox 94% on room air. HEENT: Conjunctivae normal. NECK: No jugular venous distention. CARDIOVASCULAR: S1, S2 muffled. RESPIRATORY: Breath sounds diminished in the bases. A few scattered rhonchi. No crackles. ABDOMEN: Soft, nontender. LEGS: No edema. NERVOUS SYSTEM: Nonfocal. LABS: WBC 12.9. ASSESSMENT: 1. Status post low anterior rectosigmoid resection for diverticulitis. 2. Postoperative hypotension secondary to hypovolemia, improving. 3. Increased WBC. 4. Diabetes mellitus type 2. 5. Chronic obstructive pulmonary disease, asthma history. 6. History of gastroesophageal reflux disease. 7. History of degenerative joint disease. 8. Sleep apnea. 9. History of hypothyroidism. 10.History of bladder surgery. 11.Depression. 12.Remote history of nicotine dependence. RECOMMENDATIONS AND DISCUSSION: In this 52-year-old woman who presented with multiple complex medical issues, will monitor the patient closely, continue the current medical management and symptomatic treatment. Otherwise at this time, I recommend UA with micro as well as BMP. Otherwise, continue the rest of the medications. Repeat labs will be ordered tomorrow. Continue with DVT prophylaxis. MMODL / IJN: [id number] /
[2017-03-26 00:37] LABS: Appearance,Urine Clear (Clear); Bilirubin,Urine Negative (Negative); Blood,Urine Negative (Negative); Color,Urine Yellow; Glucose,Urine (UA) Negative (Negative); Ketones,Urine Negative (Negative); Leukocyte Esterase,Urine Negative (Negative); Nitrite,Urine Negative (Negative); PH, Urine 5.5 (5.0-8.0); Protein,Urine Negative (Negative); Specific Gravity,Urine 1.008 (1.001-1.035); Urobilinogen,Urine <2.0 mg/dL (<2.0)
[2017-03-26 04:46] LABS: Glucose,Whole Blood 73 mg/dL (75-99)
[2017-03-26] MEDS: SODIUM CHLORIDE 0.9% 1,000 ML IV SCH ×3 (05:47→21:35)
[2017-03-26 07:04] LABS: Glucose,Whole Blood 74 mg/dL (75-99)
[2017-03-26 07:12] LABS: Basophils % (A) 0 %; Eosinophils # (A) 0.1 k/uL (0-0.7); Eosinophils % (A) 1 %; HCT 36.6 % (34.0-46.0); HGB 11.4 gm/dL (11.4-16.0); Lymphocytes # (A) 2.2 k/uL (1.0-4.8); Lymphocytes % (A) 22 %; MCH 30.1 pg (25.0-35.0); MCHC 31.2 g/dL (31.0-37.0); MCV 96.4 fL (80.0-100.0); Mean Platelet Volume 7.7; Monocytes # (A) 0.7 k/uL (0-1.0); Monocytes % (A) 7 %; Neutrophils # (A) 6.7 k/uL (1.3-7.7); Neutrophils % (A) 68 %; Platelet Count 235 k/uL (150-450); RDW 13.8 % (11.5-15.5); WBC 9.8 k/uL (3.8-10.6)
[2017-03-26] MEDS: IPRATROPIUM-ALBUTEROL 3 ML NEB INHALATION SCH ×3 (08:07→19:51)
[2017-03-26] MEDS: INSULIN ASPART 100 UNIT/ML 1 ML 10 ML VIAL SQ SCH ×4 (09:09→20:31)
[2017-03-26] MEDS: HEPARIN SODIUM,PORCINE 5,000 UNIT/ML 1 ML VIAL SQ SCH ×3 (09:45→23:09)
[2017-03-26] MEDS: NICOTINE 14MG/24HR PATCH TRANSDERM SCH (09:45)
[2017-03-26] MEDS: PANTOPRAZOLE 40 MG/10 ML VIAL IVP SCH (09:45)
--- NOTE | 2017-03-26 11:10 | P.PN ---
Subjective Progress Note Date: 03/26/17 52-year-old female seen and examined. Patient is up ambulating in the room. Patient states is passing gas no stool. Abdominal binder in place. Reports of nausea vomiting. Tolerating clear liquid diet Denies any dizziness lightheadedness no chest pain or shortness of breath white count 9.8 hemoglobin 11.4 blood sugars in the 70s this morning heart rate in the 90s afebrile on room air sats are 92% patient states pain medication has been effective for pain control currently on a BOLT [employer]ER pump dilaudid Postop March 24 low anterior resection for diverticulitis Objective - Vital Signs Vital signs: Vital Signs Temp 98.9 F 03/26/17 07:00 Pulse 96 03/26/17 07:00 Resp 16 03/26/17 07:00 BP 127/71 03/26/17 07:00 Pulse Ox 92 L 03/26/17 07:00 Intake & Output 03/25/17 03/26/17 03/26/17 18:59 06:59 18:59 Intake Total 1500 1200 237 Output Total 400 Balance 1100 1200 237 Weight 104.326 kg Intake: Intake, IV Titration 1200 Amount Sodium Chloride 0.9% 1, 1200 000 ml @ 150 mls/hr IV . Q6H40M [facility] Rx#:[id number] Oral 1500 237 Output: Urine 400 Uretheral (Marquez) 400 Other: Voiding Method Indwelling Catheter Indwelling Catheter # Voids 1 - Exam Physical exam 51-year-old female alert oriented 3 up in room has been up ambulating in the campbell Lungs adequate air movement bilaterally Heart S1-S2 audible regular Abdomen abdominal binder removed surgical incision sites inspected no redness. Hypoactive bowel tones no nausea no vomiting no stool states passing gas Extremities no edema noted - Labs CBC & Chem 7: 03/26/17 06:39 03/25/17 08:35 Labs: Abnormal Lab Results - Last 24 Hours (Table) 03/25/17 03/25/17 03/25/17 Range/Units 08:35 08:35 11:57 Chloride 109 H (98-107) mmol/L Creatinine 0.50 L (0.52-1.04) mg/dL Glucose 137 H (74-99) mg/dL POC Glucose (mg/dL) 165 H (75-99) mg/dL Hemoglobin A1c 10.4 H (4.0-6.0) % Total Protein 5.6 L (6.3-8.2) g/dL Albumin 3.0 L (3.5-5.0) g/dL 03/25/17 03/25/17 03/26/17 Range/Units 17:00 20:47 04:44 Chloride (98-107) mmol/L Creatinine (0.52-1.04) mg/dL Glucose (74-99) mg/dL POC Glucose (mg/dL) 117 H 119 H 73 L (75-99) mg/dL Hemoglobin A1c (4.0-6.0) % Total Protein (6.3-8.2) g/dL Albumin (3.5-5.0) g/dL 03/26/17 Range/Units 07:02 Chloride (98-107) mmol/L Creatinine (0.52-1.04) mg/dL Glucose (74-99) mg/dL POC Glucose (mg/dL) 74 L (75-99) mg/dL Hemoglobin A1c (4.0-6.0) % Total Protein (6.3-8.2) g/dL Albumin (3.5-5.0) g/dL Microbiology - Last 24 Hours (Table) 03/24/17 20:25 Urine Culture - Final Urine,Catheterized Assessment and Plan Assessment: Impression History of chronic diverticulitis History of sleep apnea with CPAP therapy Morbid obesity BMI 39 Status post March 24 low anterior rectosigmoid resection for diverticulitis with intermittent episodes of rectal bleeding Current every day smoker Type 2 diabetes insulin requiring with hypoglycemic episodes Plan Continue postop surgical care Pain control Continue the use of the incentive spirometer Increase activity Respiratory treatments as ordered once epidural was address the indwelling Marquez catheter can be removed DVT and GI prophylaxis The above impression and plan of care have been discussed and directed by signing physician. Lesly Pfeiffer nurse practitioner acting as scribe for signing physician.
[2017-03-26 11:20] LABS: Glucose,Whole Blood 80 mg/dL (75-99)
[2017-03-26 16:44] LABS: Glucose,Whole Blood 88 mg/dL (75-99)
[2017-03-26] MEDS: LACTATED RINGERS 1,000 ML IV SCH (17:14)
[2017-03-26] MEDS: HYDROcodone/APAP 5-325MG 1 EACH TAB PO PRN (17:28)
[2017-03-26] MEDS: ONDANSETRON 4 MG/2 ML VIAL IVP PRN (19:38)
--- NOTE | 2017-03-26 20:28 | PN ---
PROGRESS NOTE DATE OF SERVICE: 03/26/2017 This 52-year-old woman who was admitted after low anterior rectosigmoid resection is improving significantly. No chest pain. No palpitations. No fever. PHYSICAL EXAMINATION: Alert and oriented x3. Pulse is 92, blood pressure 124/70, respiration 16, temperature 98.7, pulse ox 95% on room air. HEENT: Conjunctivae normal. NECK: No jugular venous distention. CARDIOVASCULAR SYSTEM: S1, S2 muffled. RESPIRATORY SYSTEM: Breath sounds diminished at the bases. No rhonchi. No crackles. ABDOMEN: Soft. Status post surgery. LEGS: No edema. No swelling. NERVOUS SYSTEM: No focal deficit. LABS: CBC within normal limits. ASSESSMENT: 1. Status post low anterior rectosigmoid resection for diverticulitis. 2. Postoperative hypotension secondary to hypovolemia, improving. 3. Increased white count. 4. Diabetes mellitus, type 2. 5. Chronic obstructive pulmonary disease, asthma history. 6. History of gastroesophageal reflux disease. 7. History of degenerative joint disease. 8. Sleep apnea. 9. History of hypothyroidism. 10.History of bladder surgery. 11.Depression. 12.Remote history of nicotine dependence. RECOMMENDATIONS AND DISCUSSION: I recommend to continue current medication, continue symptomatic treatment. Will monitor blood sugars closely. The patient is on a clear liquid diet at this time. I would recommend cutting down the Levemir to 30 units tonight and continue to adjust. Prognosis is guarded because of multiple complex medical issues. Further recommendations to follow. MMODL / IJN: [id number] /
[2017-03-26] MEDS: INSULIN DETEMIR 100 UNIT/ML 10 ML VIAL SQ SCH (20:30)
[2017-03-26 20:34] LABS: Glucose,Whole Blood 135 mg/dL (75-99)
[2017-03-27] MEDS: HYDROcodone/APAP 5-325MG 1 EACH TAB PO PRN ×4 (00:04→22:24)
[2017-03-27] MEDS: ONDANSETRON 4 MG/2 ML VIAL IVP PRN ×2 (02:59→21:07)
[2017-03-27] MEDS: SODIUM CHLORIDE 0.9% 1,000 ML IV SCH ×3 (03:02→16:55)
[2017-03-27 04:51] LABS: Glucose,Whole Blood 120 mg/dL (75-99)
[2017-03-27 06:42] LABS: Basophils % (A) 1 %; Eosinophils # (A) 0.3 k/uL (0-0.7); Eosinophils % (A) 5 %; HCT 36.4 % (34.0-46.0); HGB 11.8 gm/dL (11.4-16.0); Lymphocytes # (A) 2.7 k/uL (1.0-4.8); Lymphocytes % (A) 39 %; MCH 30.3 pg (25.0-35.0); MCHC 32.4 g/dL (31.0-37.0); MCV 93.4 fL (80.0-100.0); Monocytes # (A) 0.5 k/uL (0-1.0); Monocytes % (A) 8 %; Neutrophils # (A) 3.1 k/uL (1.3-7.7); Neutrophils % (A) 45 %; Platelet Count 266 k/uL (150-450); RDW 12.6 % (11.5-15.5); WBC 6.8 k/uL (3.8-10.6)
[2017-03-27 06:56] LABS: ALT 28 U/L (9-52); AST 27 U/L (14-36); Albumin 2.8 g/dL (3.5-5.0); Alkaline Phosphatase 81 U/L (38-126); Anion Gap 5 mmol/L; Blood Urea Nitrogen 2 mg/dL (7-17); Calcium 8.4 mg/dL (8.4-10.2); Carbon Dioxide 32 mmol/L (22-30); Chloride 105 mmol/L (98-107); Glucose 78 mg/dL (74-99); Potassium 3.7 mmol/L (3.5-5.1); Sodium 142 mmol/L (137-145); Total Bilirubin 0.5 mg/dL (0.2-1.3); Total Protein 5.2 g/dL (6.3-8.2)
[2017-03-27 06:58] LABS: Glucose,Whole Blood 76 mg/dL (75-99)
[2017-03-27] MEDS: INSULIN ASPART 100 UNIT/ML 1 ML 10 ML VIAL SQ SCH ×4 (08:08→21:07)
[2017-03-27] MEDS: IPRATROPIUM-ALBUTEROL 3 ML NEB INHALATION SCH ×3 (08:11→20:27)
[2017-03-27] MEDS: PANTOPRAZOLE 40 MG/10 ML VIAL IVP SCH (09:53)
[2017-03-27] MEDS: HEPARIN SODIUM,PORCINE 5,000 UNIT/ML 1 ML VIAL SQ SCH ×2 (09:53→16:54)
[2017-03-27] MEDS: NICOTINE 14MG/24HR PATCH TRANSDERM SCH (09:53)
[2017-03-27 11:34] LABS: Glucose,Whole Blood 131 mg/dL (75-99)
--- NOTE | 2017-03-27 16:33 | P.PN ---
Subjective Progress Note Date: 03/27/17 Principal diagnosis: Status post low anterior resection 52 years old female status post open low anterior resection for sigmoid diverticulitis. Pain is well controlled. No nausea or vomiting. Small amount of flatus. No bowel movements yet. Tolerating clear liquid diet. Epidural has been discontinued. Objective - Vital Signs Vital signs: Vital Signs Temp 97.9 F 03/27/17 15:00 Pulse 83 03/27/17 15:00 Resp 18 03/27/17 15:00 BP 108/67 03/27/17 15:00 Pulse Ox 96 03/27/17 15:00 Intake & Output 03/26/17 03/27/17 03/27/17 18:59 06:59 18:59 Intake Total 787 2900 800 Balance 787 2900 800 Intake: IV 800 Sodium Chloride 0.9% 1, 800 000 ml @ 100 mls/hr IV . Q10H [facility] Rx#:[id number] Intake, IV Titration 2400 Amount Sodium Chloride 0.9% 1, 2400 000 ml @ 150 mls/hr IV . Q6H40M [facility] Rx#:[id number] Oral 787 500 Other: Voiding Method Toilet Toilet # Voids 3 3 2 - Exam Gen.: Patient is alert and oriented to time place and person and cooperative with exam. Chest bilateral equal breath sounds present Cardiovascular regular rate and rhythm Abdomen has midline surgical dressing which has some old blood clots. Otherwise abdomen is soft, nontender and nondistended. - Labs CBC & Chem 7: 03/27/17 06:13 03/27/17 06:13 Labs: Abnormal Lab Results - Last 24 Hours (Table) 03/26/17 03/27/17 03/27/17 Range/Units 20:29 04:49 06:13 Carbon Dioxide 32 H (22-30) mmol/L BUN 2 L (7-17) mg/dL Creatinine 0.50 L (0.52-1.04) mg/dL POC Glucose (mg/dL) 135 H 120 H (75-99) mg/dL Total Protein 5.2 L (6.3-8.2) g/dL Albumin 2.8 L (3.5-5.0) g/dL 03/27/17 Range/Units 11:32 Carbon Dioxide (22-30) mmol/L BUN (7-17) mg/dL Creatinine (0.52-1.04) mg/dL POC Glucose (mg/dL) 131 H (75-99) mg/dL Total Protein (6.3-8.2) g/dL Albumin (3.5-5.0) g/dL Assessment and Plan (1) Diverticulitis Current Visit: Yes Status: Acute Code(s): K57.92 - DVTRCLI OF INTEST, PART UNSP, W/O PERF OR ABSCESS W/O BLEED SNOMED Code(s): 343588960 (2) COPD with acute bronchitis Current Visit: No Status: Acute Code(s): J44.0 - CHRONIC OBSTRUCTIVE PULMON DISEASE W ACUTE LOWER RESP INFCT SNOMED Code(s): 373301467447685 Plan: 1. Advance to full liquid diet 2. Ambulating in hallways 3. Incentive spirometry use. 4. Await bowel function to start regular diet
[2017-03-27 16:58] LABS: Glucose,Whole Blood 103 mg/dL (75-99)
[2017-03-27 20:04] LABS: Glucose,Whole Blood 215 mg/dL (75-99)
[2017-03-27] MEDS: ALPRAZolam 0.25 MG TAB PO PRN (21:06)
[2017-03-27] MEDS: INSULIN DETEMIR 100 UNIT/ML 10 ML VIAL SQ SCH (21:07)
[2017-03-28] MEDS: HEPARIN SODIUM,PORCINE 5,000 UNIT/ML 1 ML VIAL SQ SCH ×3 (01:06→18:32)
[2017-03-28] MEDS: HYDROcodone/APAP 5-325MG 1 EACH TAB PO PRN ×3 (04:58→21:10)
[2017-03-28] MEDS: SODIUM CHLORIDE 0.9% 1,000 ML IV SCH ×2 (04:59→11:52)
[2017-03-28 07:14] LABS: Glucose,Whole Blood 94 mg/dL (75-99)
[2017-03-28] MEDS: IPRATROPIUM-ALBUTEROL 3 ML NEB INHALATION SCH ×3 (08:30→20:22)
[2017-03-28] MEDS: LACTATED RINGERS 1,000 ML IV SCH ×2 (09:11→20:09)
[2017-03-28] MEDS: INSULIN ASPART 100 UNIT/ML 1 ML 10 ML VIAL SQ SCH ×5 (09:12→21:11)
[2017-03-28] MEDS: NICOTINE 14MG/24HR PATCH TRANSDERM SCH (09:15)
[2017-03-28] MEDS: PANTOPRAZOLE 40 MG/10 ML VIAL IVP SCH (09:15)
[2017-03-28] MEDS: ONDANSETRON 4 MG/2 ML VIAL IVP PRN (11:53)
--- NOTE | 2017-03-28 11:55 | P.PN ---
Subjective Progress Note Date: 03/28/17 Principal diagnosis: Status post low anterior resection 52 years old female status post open low anterior resection for sigmoid diverticulitis. Pain is well controlled. No nausea or vomiting. Passing flatus. No bowel movements yet. Tolerating clear liquid diet. . Objective - Vital Signs Vital signs: Vital Signs Temp 98.1 F 03/28/17 07:38 Pulse 81 03/28/17 07:38 Resp 16 03/28/17 07:38 BP 102/53 03/28/17 07:38 Pulse Ox 94 L 03/28/17 07:38 Intake & Output 03/27/17 03/28/17 03/28/17 18:59 06:59 18:59 Intake Total 1040 1400 240 Output Total 400 Balance 1040 1000 240 Intake: IV 800 Sodium Chloride 0.9% 1, 800 000 ml @ 100 mls/hr IV . Q10H [facility] Rx#:[id number] Intake, IV Titration 800 Amount Sodium Chloride 0.9% 1, 800 000 ml @ 100 mls/hr IV . Q10H [facility] Rx#:[id number] Oral 240 600 240 Output: Urine 400 Other: Voiding Method Toilet Toilet # Voids 2 - Labs CBC & Chem 7: 03/27/17 06:13 03/27/17 06:13 Labs: Abnormal Lab Results - Last 24 Hours (Table) 03/27/17 03/27/17 Range/Units 16:57 20:00 POC Glucose (mg/dL) 103 H 215 H (75-99) mg/dL Assessment and Plan (1) Diverticulitis Current Visit: Yes Status: Acute Code(s): K57.92 - DVTRCLI OF INTEST, PART UNSP, W/O PERF OR ABSCESS W/O BLEED SNOMED Code(s): 598213327 (2) COPD with acute bronchitis Current Visit: No Status: Acute Code(s): J44.0 - CHRONIC OBSTRUCTIVE PULMON DISEASE W ACUTE LOWER RESP INFCT SNOMED Code(s): 870463825982221 Plan: 1. Advance to regular diet 2. Ambulating in hallways 3. Incentive spirometry use. 4. Heplcok iv 5. DC planning in am
[2017-03-28 12:48] LABS: Glucose,Whole Blood 191 mg/dL (75-99)
--- NOTE | 2017-03-28 16:00 | P.PN ---
Subjective 52-year-old admitted for radical sigmoid resection patient did not have bowel movement but did pass gas. Patient is wheezing on exam will be started on inhalational steroids Constitutional: Denied any fatigue denied any fever. Cardio vascular: denied any chest pain, palpitations Gastrointestinal denied any nausea vomiting Pulmonary: Denied any shortness of breath cough Neurologic denied any new focal deficits Objective - Vital Signs Vital signs: Vital Signs Temp 98.2 F 03/28/17 15:00 Pulse 89 03/28/17 15:00 Resp 16 03/28/17 15:00 BP 121/82 03/28/17 15:00 Pulse Ox 95 03/28/17 15:00 Intake & Output 03/27/17 03/28/17 03/28/17 18:59 06:59 18:59 Intake Total 1040 1400 240 Output Total 400 Balance 1040 1000 240 Intake: IV 800 Sodium Chloride 0.9% 1, 800 000 ml @ 100 mls/hr IV . Q10H [facility] Rx#:[id number] Intake, IV Titration 800 Amount Sodium Chloride 0.9% 1, 800 000 ml @ 100 mls/hr IV . Q10H [facility] Rx#:[id number] Oral 240 600 240 Output: Urine 400 Other: Voiding Method Toilet Toilet Toilet # Voids 2 - Exam PHYSICAL EXAMINATION: GENERAL: The patient is alert and oriented x3, not in any acute distress. Well developed, well nourished. HEENT: Pupils are round and equally reacting to light. EOMI. No scleral icterus. No conjunctival pallor. Normocephalic, atraumatic. No pharyngeal erythema. No thyromegaly. CARDIOVASCULAR: S1 and S2 present. No murmurs, rubs, or gallops. PULMONARY: Chest is clear to auscultation, no wheezing or crackles. ABDOMEN: Soft, nontender, nondistended, normoactive bowel sounds. No palpable organomegaly. MUSCULOSKELETAL: No joint swelling or deformity. EXTREMITIES: No cyanosis, clubbing, or pedal edema. NEUROLOGICAL: Gross neurological examination did not reveal any focal deficits. SKIN: No rashes. - Labs CBC & Chem 7: 03/27/17 06:13 03/27/17 06:13 Labs: Abnormal Lab Results - Last 24 Hours (Table) 03/27/17 03/27/17 03/28/17 Range/Units 16:57 20:00 12:30 POC Glucose (mg/dL) 103 H 215 H 191 H (75-99) mg/dL Assessment and Plan Plan: -Status post rectosigmoid resection for diverticulitis: Pain management and DVT prophylaxis antibiotic management as per primary surgical services. -Expected postoperative and perioperative hypotension which resolved at this point of time. -Leukocytosis due to surgery as well as diverticulitis. -COPD with minimal exacerbation for which patient will be started on inhalational steroids and inhalational treatments. According cessation counseling was provided -Gastroesophageal reflux disease - sleep apnea -Depression -Hypothyroidism -Type 2 diabetes mellitus next For above-mentioned chronic medical problems patient is on appropriate medications changes to these medications were made t as needed
[2017-03-28] MEDS ORDERED: HYDROmorphone 2 MG/ML 1 ML SYRINGE IVP PRN (16:03)
[2017-03-28 16:42] LABS: Glucose,Whole Blood 132 mg/dL (75-99)
[2017-03-28] MEDS: SYMBICORT 160-4.5 MCG INHALER INHALATION SCH (20:22)
[2017-03-28 20:23] LABS: Glucose,Whole Blood 206 mg/dL (75-99)
[2017-03-28] MEDS: INSULIN DETEMIR 100 UNIT/ML 10 ML VIAL SQ SCH (21:11)
[2017-03-29] MEDS: HEPARIN SODIUM,PORCINE 5,000 UNIT/ML 1 ML VIAL SQ SCH ×3 (00:06→16:28)
[2017-03-29] MEDS: ALPRAZolam 0.25 MG TAB PO PRN ×2 (00:09→22:05)
[2017-03-29 07:22] LABS: Glucose,Whole Blood 160 mg/dL (75-99)
[2017-03-29] MEDS: SYMBICORT 160-4.5 MCG INHALER INHALATION SCH ×2 (07:57→19:36)
[2017-03-29] MEDS: IPRATROPIUM-ALBUTEROL 3 ML NEB INHALATION SCH ×3 (07:57→19:37)
[2017-03-29] MEDS: HYDROcodone/APAP 5-325MG 1 EACH TAB PO PRN ×2 (08:04→16:29)
[2017-03-29] MEDS: INSULIN ASPART 100 UNIT/ML 1 ML 10 ML VIAL SQ SCH ×4 (08:04→22:04)
[2017-03-29] MEDS: PANTOPRAZOLE 40 MG TABLET PO SCH (08:37)
[2017-03-29] MEDS: NICOTINE 14MG/24HR PATCH TRANSDERM SCH (08:37)
[2017-03-29 11:17] LABS: Glucose,Whole Blood 232 mg/dL (75-99)
--- NOTE | 2017-03-29 12:37 | P.PN ---
Subjective 52-year-old admitted for radical sigmoid resection patient did not have bowel movement but did pass gas. Patient is wheezing on exam will be started on inhalational steroids 03/29/2017 Patient did not have bowel movement yet, will order MiraLAX and patient will be discharged on Symbicort as well her Wheezing completely resolved today. Constitutional: Denied any fatigue denied any fever. Cardio vascular: denied any chest pain, palpitations Gastrointestinal denied any nausea vomiting Pulmonary: Denied any shortness of breath cough Neurologic denied any new focal deficits Objective - Vital Signs Vital signs: Vital Signs Temp 98.2 F 03/29/17 07:00 Pulse 89 03/29/17 07:00 Resp 16 03/29/17 07:00 BP 119/72 03/29/17 07:00 Pulse Ox 95 03/29/17 07:00 Intake & Output 03/28/17 03/29/17 03/29/17 18:59 06:59 18:59 Intake Total 840 500 220 Output Total 1400 Balance 840 -900 220 Intake: IV 600 0 Sodium Chloride 0.9% 1, 600 0 000 ml @ 100 mls/hr IV . Q10H [facility] Rx#:[id number] Oral 240 500 220 Output: Urine 1400 Other: Voiding Method Toilet Toilet Toilet # Voids 2 3 - Exam PHYSICAL EXAMINATION: GENERAL: The patient is alert and oriented x3, not in any acute distress. Well developed, well nourished. HEENT: Pupils are round and equally reacting to light. EOMI. No scleral icterus. No conjunctival pallor. Normocephalic, atraumatic. No pharyngeal erythema. No thyromegaly. CARDIOVASCULAR: S1 and S2 present. No murmurs, rubs, or gallops. PULMONARY: Chest is clear to auscultation, no wheezing or crackles. ABDOMEN: Soft, nontender, nondistended, normoactive bowel sounds. No palpable organomegaly. MUSCULOSKELETAL: No joint swelling or deformity. EXTREMITIES: No cyanosis, clubbing, or pedal edema. NEUROLOGICAL: Gross neurological examination did not reveal any focal deficits. SKIN: No rashes. - Labs CBC & Chem 7: 03/27/17 06:13 03/27/17 06:13 Labs: Abnormal Lab Results - Last 24 Hours (Table) 03/28/17 03/28/17 03/28/17 Range/Units 12:30 16:39 20:22 POC Glucose (mg/dL) 191 H 132 H 206 H (75-99) mg/dL 03/29/17 03/29/17 Range/Units 07:06 11:11 POC Glucose (mg/dL) 160 H 232 H (75-99) mg/dL Assessment and Plan Plan: -Status post rectosigmoid resection for diverticulitis: Pain management and DVT prophylaxis antibiotic management as per primary surgical services. Patient will be given prescription for Symbicort -Expected postoperative and perioperative hypotension which resolved at this point of time. -Leukocytosis due to surgery as well as diverticulitis. -COPD with minimal exacerbation for which patient is on inhalational steroids and inhalational treatments. According cessation counseling was provided -Gastroesophageal reflux disease - sleep apnea -Depression -Hypothyroidism -Type 2 diabetes mellitus next
[2017-03-29] MEDS ORDERED: POLYETHYLENE GLYCOL 3350 17 GM POWD.PACK PO STA (12:38)
--- NOTE | 2017-03-29 14:49 | P.PN ---
Progress Note - Text Progress Note Date: 03/29/17 The patient's resting comfortably in bed. She states she has some minimal incisional pain. She's had flatus with no significant bowel movement. On exam her vital signs are stable. Her abdomen is soft. Status post low anterior resection for diverticulitis. Patient did well. The patient will hopefully be discharged home in the a.m.
[2017-03-29 17:16] LABS: Glucose,Whole Blood 185 mg/dL (75-99)
[2017-03-29] MEDS: LACTATED RINGERS 1,000 ML IV SCH (17:35)
[2017-03-29 20:50] LABS: Glucose,Whole Blood 229 mg/dL (75-99)
[2017-03-29] MEDS: INSULIN DETEMIR 100 UNIT/ML 10 ML VIAL SQ SCH (22:04)
[2017-03-30] MEDS: HEPARIN SODIUM,PORCINE 5,000 UNIT/ML 1 ML VIAL SQ SCH ×2 (00:47→08:14)
[2017-03-30] MEDS: HYDROcodone/APAP 5-325MG 1 EACH TAB PO PRN ×2 (00:47→08:20)
[2017-03-30 07:21] LABS: Glucose,Whole Blood 157 mg/dL (75-99)
[2017-03-30] MEDS: SYMBICORT 160-4.5 MCG INHALER INHALATION SCH (07:39)
[2017-03-30] MEDS: IPRATROPIUM-ALBUTEROL 3 ML NEB INHALATION SCH ×2 (07:39→13:46)
[2017-03-30] MEDS: NICOTINE 14MG/24HR PATCH TRANSDERM SCH (08:14)
[2017-03-30] MEDS: PANTOPRAZOLE 40 MG TABLET PO SCH (08:14)
[2017-03-30] MEDS: INSULIN ASPART 100 UNIT/ML 1 ML 10 ML VIAL SQ SCH ×2 (08:21→13:35)
[2017-03-30 10:32] VITALS: BP 147/72; PULSE 71; RESP 18; TEMP 98.1
--- NOTE | 2017-03-30 10:57 | P.DS ---
Providers Date of admission: 03/24/17 09:01 Expected date of discharge: 03/30/17 Attending physician: David Gonzalez Consults: 03/24/17 13:24 Consult Physician Routine Consulting Provider: Arie Webber Consult Reason/Comments: med management Do you want consulting provider notified?: Yes Primary care physician: Raffy Hernandez [facility] Course: 52-year-old female who presented to undergo an March 24 low anterior resection for diverticulitis. No postop events. pain medication effective for pain control ambulating in the campbell at the time of discharge patient had a bowel movement was tolerating a diet was felt to be hemodynamically stable appropriate proceed with a discharge to home Impression History of chronic diverticulitis History of sleep apnea with CPAP therapy Morbid obesity BMI 39 Status post March 24 low anterior rectosigmoid resection for diverticulitis with intermittent episodes of rectal bleeding Current every day smoker Type 2 diabetes insulin requiring with hypoglycemic episodes COPD stable no evidence of an exacerbation Gastroesophageal reflux disease Leukocytosis likely due to surgery reactive resolved The above impression and plan of care have been discussed and directed by signing physician. Lesly Pfeiffer nurse practitioner acting as scribe for signing physician. Plan - Discharge Summary Discharge Rx Participant: Yes New Discharge Prescriptions: New Budesonide-Formot 160-4.5 Mcg [Symbicort 160-4.5 Mcg Inhaler] 2 puff INHALATION BID #1 inhaler Nicotine 14Mg/24Hr Patch [Habitrol] 1 patch TRANSDERM DAILY #30 patch HYDROcodone/APAP 5-325MG [[place] 5-325] 1 each PO Q4HR PRN #30 tab PRN Reason: MODERATE Pain Continue Insulin Glargine [Lantus] 100 unit SQ HS Ibuprofen [Motrin] 800 mg PO Q8H PRN PRN Reason: Pain Insulin Aspart [NovoLOG (formulary)] 10 - 20 unit SQ AC-TID ALPRAZolam [Xanax] 0.5 mg PO HS PRN PRN Reason: anxiety/sleep Cyclobenzaprine [Flexeril] 10 mg PO TID PRN PRN Reason: Muscle Spasm Albuterol Inhaler [Ventolin Hfa Inhaler] 1 - 2 puff INHALATION RT-Q6H PRN PRN Reason: Dyspnea HYDROcodone/APAP 5-325MG [[place] 5-325] 1 tab PO Q6HR PRN #20 tab PRN Reason: Pain Discharge Medication List Insulin Glargine [Lantus] 100 unit SQ HS 05/19/14 [History] Ibuprofen [Motrin] 800 mg PO Q8H PRN 10/06/15 [History] Insulin Aspart [NovoLOG (formulary)] 10 - 20 unit SQ AC-TID 12/24/16 [History] ALPRAZolam [Xanax] 0.5 mg PO HS PRN 02/12/17 [History] Albuterol Inhaler [Ventolin Hfa Inhaler] 1 - 2 puff INHALATION RT-Q6H PRN [History] Cyclobenzaprine [Flexeril] 10 mg PO TID PRN 03/23/17 [History] Budesonide-Formot 160-4.5 Mcg [Symbicort 160-4.5 Mcg Inhaler] 2 puff INHALATION BID #1 inhaler 03/29/17 [Rx] HYDROcodone/APAP 5-325MG [[place] 5-325] 1 each PO Q4HR PRN #30 tab 03/30/17 [Rx] HYDROcodone/APAP 5-325MG [[place] 5-325] 1 tab PO Q6HR PRN #20 tab 03/30/17 [Rx] Nicotine 14Mg/24Hr Patch [Habitrol] 1 patch TRANSDERM DAILY #30 patch 03/30/17 [ Rx] Follow up Appointment(s)/Referral(s): Dana Akbar MD [Primary Care Provider] - 04/06/17 10:50 am David Gonzalez MD [STAFF PHYSICIAN] - 1 Week Activity/Diet/Wound Care/Special Instructions: Nebulizer - [facility] - [phone] - will deliver to bedside No tub bath for six weeks. Shower daily. No lifting over 4 pounds for the next 6 weeks. Monitor LINDA drain and record. May use ice packs to surgical site. No driving while taking narcotic for pain. Discharge Disposition: HOME SELF-CARE
[2017-03-30 11:45] LABS: Glucose,Whole Blood 198 mg/dL (75-99)
--- NOTE | 2017-03-30 12:53 | P.PN ---
Subjective 52-year-old admitted for radical sigmoid resection patient did not have bowel movement but did pass gas. Patient is wheezing on exam will be started on inhalational steroids 03/29/2017 Patient did not have bowel movement yet, will order MiraLAX and patient will be discharged on Symbicort as well . 03/30/2017 patient did have a bowel movement today and is being discharged today Wheezing completely resolved today. Constitutional: Denied any fatigue denied any fever. Cardio vascular: denied any chest pain, palpitations Gastrointestinal denied any nausea vomiting Pulmonary: Denied any shortness of breath cough Neurologic denied any new focal deficits Objective - Vital Signs Vital signs: Vital Signs Temp 98.1 F 03/30/17 10:31 Pulse 71 03/30/17 10:31 Resp 18 03/30/17 10:31 BP 147/72 03/30/17 10:31 Pulse Ox 97 03/30/17 10:31 Intake & Output 03/29/17 03/30/17 03/30/17 18:59 06:59 18:59 Intake Total 440 180 Balance 440 180 Intake: Oral 440 180 Other: Voiding Method Toilet Toilet Toilet # Voids 2 2 # Bowel Movements 1 - Exam PHYSICAL EXAMINATION: GENERAL: The patient is alert and oriented x3, not in any acute distress. Well developed, well nourished. HEENT: Pupils are round and equally reacting to light. EOMI. No scleral icterus. No conjunctival pallor. Normocephalic, atraumatic. No pharyngeal erythema. No thyromegaly. CARDIOVASCULAR: S1 and S2 present. No murmurs, rubs, or gallops. PULMONARY: Chest is clear to auscultation, no wheezing or crackles. ABDOMEN: Soft, nontender, nondistended, normoactive bowel sounds. No palpable organomegaly. MUSCULOSKELETAL: No joint swelling or deformity. EXTREMITIES: No cyanosis, clubbing, or pedal edema. NEUROLOGICAL: Gross neurological examination did not reveal any focal deficits. SKIN: No rashes. - Labs CBC & Chem 7: 03/27/17 06:13 03/27/17 06:13 Labs: Abnormal Lab Results - Last 24 Hours (Table) 03/29/17 03/29/17 03/30/17 Range/Units 17:14 20:47 07:17 POC Glucose (mg/dL) 185 H 229 H 157 H (75-99) mg/dL 03/30/17 Range/Units 11:36 POC Glucose (mg/dL) 198 H (75-99) mg/dL Assessment and Plan Plan: -Status post rectosigmoid resection for diverticulitis: Pain management and DVT prophylaxis antibiotic management as per primary surgical services. Patient was given prescription for Symbicort -Expected postoperative and perioperative hypotension which resolved at this point of time. -Leukocytosis due to surgery as well as diverticulitis. -COPD with minimal exacerbation for which patient is on inhalational steroids and inhalational treatments. According cessation counseling was provided -Gastroesophageal reflux disease - sleep apnea -Depression -Hypothyroidism -Type 2 diabetes mellitus next
== END 2017-03-30 13:53 | disposition home or self-care (01) | DRG 330 ==
LOC: 2ORMAIN 09:01 → 3SUR 14:23
PROVIDERS: ADMIT Surgery; ATTEND Surgery
PROC: 0DTN0ZZ Resection of Sigmoid Colon, Open Approach (ICD-10-PCS; principal; 2017-03-24 11:20)
DX: K57.33 Diverticulitis of large intestine without perforation or abscess with bleeding (principal); J44.0 Chronic obstructive pulmonary disease with (acute) lower respiratory infection; E11.649 Type 2 diabetes mellitus with hypoglycemia without coma; E66.01 Morbid (severe) obesity due to excess calories; J20.9 Acute bronchitis, unspecified; E86.1 Hypovolemia; K21.9 Gastro-esophageal reflux disease without esophagitis; M19.91 Primary osteoarthritis, unspecified site; G25.81 Restless legs syndrome; G47.30 Sleep apnea, unspecified; K44.9 Diaphragmatic hernia without obstruction or gangrene; F17.290 Nicotine dependence, other tobacco product, uncomplicated; F41.9 Anxiety disorder, unspecified; E03.9 Hypothyroidism, unspecified; F32.9 Major depressive disorder, single episode, unspecified; Z68.39 Body mass index [BMI] 39.0-39.9, adult; I83.90 Asymptomatic varicose veins of unspecified lower extremity; Z79.4 Long term (current) use of insulin; Z79.899 Other long term (current) drug therapy; Z86.718 Personal history of other venous thrombosis and embolism; Z96.653 Presence of artificial knee joint, bilateral; Z91.048 Other nonmedicinal substance allergy status
CPT/HCPCS: 71045; 80048; 80051; 80053; 81001; 81003; 82565; 83036; 84484; 84520; 85025; 86850; 86900; 86901; 87086; 88307; 93005; 94640; 94760; 94762

== ENCOUNTER 2018-02-17 09:51 | Observation (INO) | payer MEDICARE, OTHER ==
[2018-02-17] MEDS ORDERED: SODIUM CHLORIDE 0.9% 1,000 ML IV STA (09:58)
[2018-02-17] MEDS ORDERED: ONDANSETRON 4 MG/2 ML VIAL IVP STA (10:17)
[2018-02-17] MEDS ORDERED: diphenhydrAMINE 50 MG/ML 1 ML VIAL IVP STA (10:17)
[2018-02-17] MEDS ORDERED: LORazepam 2 MG/ML INJ IV STA (10:17)
--- NOTE | 2018-02-17 10:46 | ED ---
Dizziness HPI - General Chief Complaint: Dizziness Stated Complaint: dizziness Time Seen by Provider: 02/17/18 09:55 Source: patient, EMS, RN notes reviewed, old records reviewed Mode of arrival: EMS Limitations: no limitations - History of Present Illness Initial Comments: This is a 53-year-old female the ER for evaluation of dizziness. Left ear pain. Patient states the room is spinning she is severely nauseous, but vomiting. Patient has history of similar complaint has been scheduled with outpatient ENT evaluation in the past but she did not make that appointment. Patient denies significant headache chest pain abdominal pain no vision loss, denies any modifying factors for improvement. MD Complaint: dizziness, lightheadedness -: hour(s) Timing: gradual onset Description: "room spinning", nausea History of Same: Yes History of Trauma: No Severity: moderate Improves With: remaining still Worsens With: movement, position Associated Symptoms: loss of appetite, weakness, other (Vomiting) - Related Data Home Medications Medication Instructions Recorded Confirmed Insulin Glargine [Lantus] 100 unit SQ HS 05/19/14 02/17/18 Ibuprofen [Motrin] 800 mg PO Q8H PRN 10/06/15 02/17/18 Insulin Aspart [NovoLOG 20 - 30 unit SQ AC-TID 12/24/16 02/17/18 (formulary)] ALPRAZolam [Xanax] 0.5 mg PO HS PRN 02/12/17 02/17/18 Albuterol Inhaler [Ventolin Hfa 1 - 2 puff INHALATION RT-Q6H PRN 03/23/17 Inhaler] Naproxen Sodium [Aleve] 440 mg PO Q12HR PRN 02/17/18 02/17/18 Allergies Allergy/AdvReac Type Severity Reaction Status Date / Time nickel [Nickel] Allergy PAIN FROM Verified 02/17/18 10:57 KNEE IMPLANT Review of Systems ROS Statement: Those systems with pertinent positive or pertinent negative responses have been documented in the HPI. ROS Other: All systems not noted in ROS Statement are negative. Past Medical History Past Medical History: Asthma, COPD, Diabetes Mellitus, GERD/Reflux, Osteoarthritis (OA), Sleep Apnea/CPAP/BIPAP, Thyroid Disorder Additional Past Medical History / Comment(s): HX SUPERFICIAL BLOOD CLOTS IN LEGS. HAS VARICOSE VEINS. RLS. HAS SLEEP APNEA-NO TX REQUIRED. HIATAL HERNIA , hx. h-pylori, THYROID NODULES, diverticulitis recently History of Any Multi-Drug Resistant Organisms: None Reported Past Surgical History: Bladder Surgery, Joint Replacement, Orthopedic Surgery Additional Past Surgical History / Comment(s): BINA TOTAL KNEE, LT X2. CTR LT HAND; LT ULNAR NERVE REPAIR; LT ANKLE SPUR, MUSCLE SURG; LT SHOULDER RECONSTRUCTION. COLONOSCOPY, EGD. D&C, BLADDER SUSPENSION W/ MESH., LOW ANTERIOR SIGMOIG RESECTION 03-24-2017 Past Anesthesia/Blood Transfusion Reactions: Previous Problems w/ Anesthesia, Motion Sickness Additional Past Anesthesia/Blood Transfusion Reaction / Comment(s): slow to wake up @times Past Psychological History: Anxiety, Depression Smoking Status: Current every day smoker Past Alcohol Use History: None Reported Past Drug Use History: None Reported - Past Family History Mother Family Medical History: Cancer, Deep Vein Thrombosis (DVT) Additional Family Medical History / Comment(s): ESOPHAGEAL CA Father Family Medical History: Deep Vein Thrombosis (DVT) General Exam Limitations: no limitations General appearance: alert, in no apparent distress Head exam: Present: atraumatic, normocephalic, normal inspection Eye exam: Present: normal appearance, PERRL, EOMI. Absent: scleral icterus, conjunctival injection, periorbital swelling ENT exam: Present: normal exam, mucous membranes moist Neck exam: Present: normal inspection. Absent: tenderness, meningismus, lymphadenopathy Respiratory exam: Present: normal lung sounds bilaterally. Absent: respiratory distress, wheezes, rales, rhonchi, stridor Cardiovascular Exam: Present: regular rate, normal rhythm, normal heart sounds. Absent: systolic murmur, diastolic murmur, rubs, gallop, clicks GI/Abdominal exam: Present: soft, normal bowel sounds. Absent: distended, tenderness, guarding, rebound, rigid Extremities exam: Present: normal inspection, full ROM, normal capillary refill. Absent: tenderness, pedal edema, joint swelling, calf tenderness Back exam: Present: normal inspection Neurological exam: Present: alert, oriented X3, CN II-XII intact Psychiatric exam: Present: normal affect, normal mood Skin exam: Present: warm, dry, intact, normal color. Absent: rash Course Vital Signs 02/17/18 09:55 Temperature 97.7 F Pulse Rate 78 Respiratory 18 Rate Blood Pressure 125/91 O2 Sat by Pulse 97 Oximetry - Reevaluation(s) Reevaluation #1: 02/17/18 10:46 Medical records reviewed Reevaluation #2: 02/17/18 10:46 Patient does have current improve symptoms EKG Findings - EKG Comments: EKG Findings:: EKG shows normal sinus rhythm rate of 84, NM 1:30, QRS 84, QTC 446 Medical Decision Making - Medical Decision Making 34 female the ER for evasive dizziness and vertigo-type symptoms. Patient to be admitted for persistent dizziness and vertigo as she is unable to actively, ataxic. - Lab Data Result diagrams: 02/17/18 10:15 02/17/18 10:15 Lab Results 02/17/18 02/17/18 02/17/18 Range/Units 10:15 10:15 10:15 WBC 5.4 (3.8-10.6) k/uL RBC 5.05 (3.80-5.40) m/uL Hgb 15.0 (11.4-16.0) gm/dL Hct 46.3 H (34.0-46.0) % MCV 91.8 (80.0-100.0) fL MCH 29.6 (25.0-35.0) pg MCHC 32.3 (31.0-37.0) g/dL RDW 12.8 (11.5-15.5) % Plt Count 263 (150-450) k/uL Neutrophils % 48 % Lymphocytes % 36 % Monocytes % 7 % Eosinophils % 6 % Basophils % 1 % Neutrophils # 2.6 (1.3-7.7) k/uL Lymphocytes # 1.9 (1.0-4.8) k/uL Monocytes # 0.4 (0-1.0) k/uL Eosinophils # 0.3 (0-0.7) k/uL Basophils # 0.1 (0-0.2) k/uL PT (9.0-12.0) sec INR (<1.2) APTT (22.0-30.0) sec Sodium 141 (137-145) mmol/L Potassium 3.9 (3.5-5.1) mmol/L Chloride 107 (98-107) mmol/L Carbon Dioxide 25 (22-30) mmol/L Anion Gap 9 mmol/L BUN 14 (7-17) mg/dL Creatinine 0.31 L (0.52-1.04) mg/dL Est GFR (CKD-EPI)AfAm >90 (>60 ml/min/1.73 sqM) Est GFR (CKD-EPI)NonAf >90 (>60 ml/min/1.73 sqM) Glucose 257 H (74-99) mg/dL Plasma Lactic Acid Thuan (0.7-2.0) mmol/L Calcium 8.8 (8.4-10.2) mg/dL Phosphorus 3.5 (2.5-4.5) mg/dL Magnesium 1.6 (1.6-2.3) mg/dL Total Bilirubin 0.3 (0.2-1.3) mg/dL AST 20 (14-36) U/L ALT 26 (9-52) U/L Alkaline Phosphatase 99 (38-126) U/L Total Creatine Kinase 33 (30-135) U/L CK-MB (CK-2) 0.3 (0.0-2.4) ng/mL CK-MB (CK-2) Rel Index 0.9 Troponin I <0.012 (0.000-0.034) ng/mL Total Protein 6.8 (6.3-8.2) g/dL Albumin 3.7 (3.5-5.0) g/dL Urine Color Urine Appearance (Clear) Urine pH (5.0-8.0) Ur Specific [place] (1.001-1.035) Urine Protein (Negative) Urine Glucose (UA) (Negative) Urine Ketones (Negative) Urine Blood (Negative) Urine Nitrite (Negative) Urine Bilirubin (Negative) Urine Urobilinogen (<2.0) mg/dL Ur Leukocyte Esterase (Negative) 02/17/18 02/17/18 02/17/18 Range/Units 10:15 10:15 11:38 WBC (3.8-10.6) k/uL RBC (3.80-5.40) m/uL Hgb (11.4-16.0) gm/dL Hct (34.0-46.0) % MCV (80.0-100.0) fL MCH (25.0-35.0) pg MCHC (31.0-37.0) g/dL RDW (11.5-15.5) % Plt Count (150-450) k/uL Neutrophils % % Lymphocytes % % Monocytes % % Eosinophils % % Basophils % % Neutrophils # (1.3-7.7) k/uL Lymphocytes # (1.0-4.8) k/uL Monocytes # (0-1.0) k/uL Eosinophils # (0-0.7) k/uL Basophils # (0-0.2) k/uL PT 9.7 (9.0-12.0) sec INR 0.9 (<1.2) APTT 21.3 L (22.0-30.0) sec Sodium (137-145) mmol/L Potassium (3.5-5.1) mmol/L Chloride (98-107) mmol/L Carbon Dioxide (22-30) mmol/L Anion Gap mmol/L BUN (7-17) mg/dL Creatinine (0.52-1.04) mg/dL Est GFR (CKD-EPI)AfAm (>60 ml/min/1.73 sqM) Est GFR (CKD-EPI)NonAf (>60 ml/min/1.73 sqM) Glucose (74-99) mg/dL Plasma Lactic Acid Thuan 3.1 H* (0.7-2.0) mmol/L Calcium (8.4-10.2) mg/dL Phosphorus (2.5-4.5) mg/dL Magnesium (1.6-2.3) mg/dL Total Bilirubin (0.2-1.3) mg/dL AST (14-36) U/L ALT (9-52) U/L Alkaline Phosphatase (38-126) U/L Total Creatine Kinase (30-135) U/L CK-MB (CK-2) (0.0-2.4) ng/mL CK-MB (CK-2) Rel Index Troponin I (0.000-0.034) ng/mL Total Protein (6.3-8.2) g/dL Albumin (3.5-5.0) g/dL Urine Color Yellow Urine Appearance Clear (Clear) Urine pH 5.5 (5.0-8.0) Ur Specific [place] 1.035 (1.001-1.035) Urine Protein Negative (Negative) Urine Glucose (UA) 4+ H (Negative) Urine Ketones Negative (Negative) Urine Blood Negative (Negative) Urine Nitrite Negative (Negative) Urine Bilirubin Negative (Negative) Urine Urobilinogen <2.0 (<2.0) mg/dL Ur Leukocyte Esterase Negative (Negative) - Radiology Data Radiology results: report reviewed (CT brain is negative for acute disease), image reviewed Disposition Clinical Impression: Benign paroxysmal positional vertigo, Intractable nausea and vomiting, Ataxia Disposition: ADMITTED IP TO THIS [facility] Condition: Fair Is patient prescribed a controlled substance at d/c from ED?: No
[2018-02-17 10:47] LABS: Basophils # (A) 0.1 k/uL (0-0.2); Basophils % (A) 1 %; Eosinophils # (A) 0.3 k/uL (0-0.7); Eosinophils % (A) 6 %; HCT 46.3 % (34.0-46.0); Lymphocytes # (A) 1.9 k/uL (1.0-4.8); Lymphocytes % (A) 36 %; MCH 29.6 pg (25.0-35.0); MCHC 32.3 g/dL (31.0-37.0); MCV 91.8 fL (80.0-100.0); Mean Platelet Volume 7.1; Monocytes # (A) 0.4 k/uL (0-1.0); Monocytes % (A) 7 %; Neutrophils # (A) 2.6 k/uL (1.3-7.7); Neutrophils % (A) 48 %; Platelet Count 263 k/uL (150-450); RBC 5.05 m/uL (3.80-5.40); RDW 12.8 % (11.5-15.5); WBC 5.4 k/uL (3.8-10.6)
[2018-02-17 11:01] LABS: ALT 26 U/L (9-52); AST 20 U/L (14-36); Albumin 3.7 g/dL (3.5-5.0); Alkaline Phosphatase 99 U/L (38-126); Anion Gap 9 mmol/L; Blood Urea Nitrogen 14 mg/dL (7-17); Calcium 8.8 mg/dL (8.4-10.2); Carbon Dioxide 25 mmol/L (22-30); Chloride 107 mmol/L (98-107); Glucose 257 mg/dL (74-99); Magnesium 1.6 mg/dL (1.6-2.3); Phosphorus 3.5 mg/dL (2.5-4.5); Potassium 3.9 mmol/L (3.5-5.1); Sodium 141 mmol/L (137-145); Total Bilirubin 0.3 mg/dL (0.2-1.3); Total Protein 6.8 g/dL (6.3-8.2)
[2018-02-17 11:09] LABS: Creatine Kinase 33 U/L (30-135)
--- NOTE | 2018-02-17 11:12 | CT ---
EXAMINATION TYPE: CT brain wo con, CT iac wo con DATE OF EXAM: 02/17/2018 HISTORY: Dizziness and left ear pain CT DLP: 264.4 mGycm. Automated Exposure Control for Dose Reduction was Utilized. TECHNIQUE: CT scan of the head and internal auditory canals are both performed without contrast. COMPARISON: None. FINDINGS: There is no acute intracranial hemorrhage or midline shift identified. Ventricles and sul ci are within normal limits in size for patient's age. Guido-white matter differentiation is maintaine d. The globes are intact bilaterally. There is mild to moderate mucosal thickening involving ethmoi d sinuses bilaterally and left sphenoid sinus. The external auditory canals are patent bilaterally. Mastoid air cells show no evidence of abnormal opacification bilaterally. The middle ear ossicles are symmetric and unremarkable. There is no evid ence of suspicious surrounding soft tissue density to suggest cholesteatoma. The scutum is preserved bilaterally. The cochlea and the semicircular canals are symmetric and unremarkable. Vestibular aq ueduct and internal carotid canal appear unremarkable. Temporomandibular joints are maintained bilaterally. Visualized paranasal sinuses are grossly clear. Visualized portion brain parenchyma is felt within normal limits. IMPRESSION: Mild to moderate chronic paranasal sinus disease. No significant abnormality is otherwise seen to account for patient's symptoms.
[2018-02-17 11:16] LABS: INR 0.9 (<1.2); Partial Thromboplastin Time 21.3 sec (22.0-30.0); Prothrombin Time 9.7 sec (9.0-12.0)
[2018-02-17 11:22] LABS: Creatine Kinase MB 0.3 ng/mL (0.0-2.4); Troponin I <0.012 ng/mL (0.000-0.034)
[2018-02-17 12:20] LABS: Appearance,Urine Clear (Clear); Bilirubin,Urine Negative (Negative); Blood,Urine Negative (Negative); Color,Urine Yellow; Glucose,Urine (UA) 4+ (Negative); Ketones,Urine Negative (Negative); Leukocyte Esterase,Urine Negative (Negative); Nitrite,Urine Negative (Negative); PH, Urine 5.5 (5.0-8.0); Protein,Urine Negative (Negative); Specific Gravity,Urine 1.035 (1.001-1.035); Urobilinogen,Urine <2.0 mg/dL (<2.0)
[2018-02-17] MEDS ORDERED: DIAZEPAM 5 MG/ML 2 ML INJ IVP PRN (12:58)
[2018-02-17] MEDS ORDERED: diphenhydrAMINE 50 MG/ML 1 ML VIAL IVP PRN (12:58)
[2018-02-17] MEDS ORDERED: DIAZEPAM 5 MG/ML 2 ML INJ IVP STA (12:58)
[2018-02-17] MEDS ORDERED: ASPIRIN 325 MG TAB PO STA (13:15)
[2018-02-17] MEDS ORDERED: IPRATROPIUM-ALBUTEROL 3 ML NEB INHALATION PRN (15:29)
[2018-02-17] MEDS: SODIUM CHLORIDE 0.9% 1,000 ML IV SCH (15:35)
--- NOTE | 2018-02-17 15:35 | P.HPIM ---
History of Present Illness 53-year-old pleasant female came in with complaints of dizziness which is 1 spinning around and vertigo. Patient started having these symptoms today with nausea vomiting patient has multiple episodes of vomiting today. Patient was dealing with a left ear infection patient does have tenderness in the left mastoid area, left maxillary sinus. Otoscopic exam didn't reveal much because of significant amount of cerumen in the left ear. Patient does feel fullness in the year. Denied any fever chills is a smoker can use to smoke patient had a year infections in the past appears to have chronic suppurative O Joseph media. Patient denied any fever chills patient had any shortness of breath patient does have wheezing on exam. Patient had viral URI about 3 weeks ago. Denied any throat pain. Review of Systems REVIEW OF SYSTEMS: CONSTITUTIONAL: No fever, no malaise, no fatigue. HEENT: As mentioned in HPI CARDIOVASCULAR: No chest pain, orthopnea, PND, no palpitations, no syncope. PULMONARY: No shortness of breath, no cough, no hemoptysis. GASTROINTESTINAL: No diarrhea, no nausea, no vomiting, no abdominal pain. NEUROLOGICAL: No headaches, no weakness, no numbness. HEMATOLOGICAL: Denies any bleeding or petechiae. GENITOURINARY: Denies any burning micturition, frequency, or urgency. MUSCULOSKELETAL/RHEUMATOLOGICAL: Denies any joint pain, swelling, or any muscle pain. ENDOCRINE: Denies any polyuria or polydipsia. The rest of the 14-point review of systems is negative. Past Medical History Past Medical History: Asthma, COPD, Diabetes Mellitus, GERD/Reflux, Osteoarthritis (OA), Pneumonia, Sleep Apnea/CPAP/BIPAP, Thyroid Disorder Additional Past Medical History / Comment(s): IDDM type II, bilateral feet neuropathy, hiatal hernia, superficial blood clots in legs, varicose veins bilaterally, RLS, thyroid nodules, JOHNATHAN-no treatment required, diverticulitis with bowel resection, "dizzy spells" in the past. History of Any Multi-Drug Resistant Organisms: None Reported Past Surgical History: Adenoidectomy, Bladder Surgery, Joint Replacement, Orthopedic Surgery, Tonsillectomy Additional Past Surgical History / Comment(s): BINA TOTAL KNEE, LT X2. CTR LT HAND; LT ULNAR NERVE REPAIR; LT ANKLE SPUR, MUSCLE SURG; LT SHOULDER RECONSTRUCTION. COLONOSCOPY, EGD. D&C, BLADDER SUSPENSION W/ MESH., LOW ANTERIOR SIGMOIG RESECTION 03-24-2017 Past Anesthesia/Blood Transfusion Reactions: Previous Problems w/ Anesthesia, Motion Sickness Additional Past Anesthesia/Blood Transfusion Reaction / Comment(s): slow to wake up @times Smoking Status: Current every day smoker - Past Family History Mother Family Medical History: Cancer, Deep Vein Thrombosis (DVT) Additional Family Medical History / Comment(s): Mother of esophageal cancer at the age of 62 yrs. Father Family Medical History: Deep Vein Thrombosis (DVT) Additional Family Medical History / Comment(s): Father from heart and lung disease at the age of 67yrs. Medications and Allergies Home Medications Medication Instructions Recorded Confirmed Type Insulin Glargine [Lantus] 100 unit SQ HS 05/19/14 02/17/18 History Ibuprofen [Motrin] 800 mg PO Q8H PRN 10/06/15 02/17/18 History Insulin Aspart [NovoLOG 20 - 30 unit SQ AC-TID 12/24/16 02/17/18 History (formulary)] ALPRAZolam [Xanax] 0.5 mg PO HS PRN 02/12/17 02/17/18 History Albuterol Inhaler [Ventolin Hfa 1 - 2 puff INHALATION RT-Q6H PRN 03/23/17 History Inhaler] Naproxen Sodium [Aleve] 440 mg PO Q12HR PRN 02/17/18 02/17/18 History Allergies Allergy/AdvReac Type Severity Reaction Status Date / Time nickel [Nickel] Allergy PAIN FROM Verified 02/17/18 10:57 KNEE IMPLANT Physical Exam Vitals: Vital Signs Temp Pulse Pulse Resp BP BP Pulse Ox 02/17/18 15:05 98.2 F 89 18 95/62 94 L 02/17/18 13:50 97.9 F 102 H 18 102/69 96 02/17/18 09:55 97.7 F 78 18 125/91 97 Intake and Output 02/17/18 02/17/18 02/17/18 06:59 14:59 22:59 Other: Weight 108.862 kg PHYSICAL EXAMINATION: GENERAL: The patient is alert and oriented x3, not in any acute distress. Well developed, well nourished. HEENT: Pupils are round and equally reacting to light. EOMI. No scleral icterus. No conjunctival pallor. Normocephalic, atraumatic. No pharyngeal erythema. No thyromegaly. Patient has significant cerumen in the left ear because of which the left middle ear exam is limited patient does have left maxillary sinus tenderness left mastoid tenderness. CARDIOVASCULAR: S1 and S2 present. No murmurs, rubs, or gallops. PULMONARY: Chest is clear to auscultation, no wheezing or crackles. ABDOMEN: Soft, nontender, nondistended, normoactive bowel sounds. No palpable organomegaly. MUSCULOSKELETAL: No joint swelling or deformity. EXTREMITIES: No cyanosis, clubbing, or pedal edema. NEUROLOGICAL: Gross neurological examination did not reveal any focal deficits. SKIN: No rashes. Results CBC & Chem 7: 02/17/18 10:15 02/17/18 10:15 Labs: Abnormal Lab Results - Last 24 Hours (Table) 02/17/18 02/17/18 02/17/18 Range/Units 10:15 10:15 10:15 Hct 46.3 H (34.0-46.0) % APTT 21.3 L (22.0-30.0) sec Creatinine 0.31 L (0.52-1.04) mg/dL Glucose 257 H (74-99) mg/dL Plasma Lactic Acid Thuan (0.7-2.0) mmol/L Urine Glucose (UA) (Negative) 02/17/18 02/17/18 Range/Units 10:15 11:38 Hct (34.0-46.0) % APTT (22.0-30.0) sec Creatinine (0.52-1.04) mg/dL Glucose (74-99) mg/dL Plasma Lactic Acid Thuan 3.1 H* (0.7-2.0) mmol/L Urine Glucose (UA) 4+ H (Negative) Thrombosis Risk Factor Assmnt - Choose All That Apply Any of the Below Risk Factors Present?: Yes Each Factor Represents 1 point: Abnormal pulmonary function (COPD), Age 41-60 years, Obesity (BMI >25) Other Risk Factors: Yes Each Risk Factor Represents 3 Points: History of DVT/PE Other congenital or acquired thrombophilia - If yes, enter type in comment: No Thrombosis Risk Factor Assessment Total Risk Factor Score: 6 Thrombosis Risk Factor Assessment Level: High Risk Assessment and Plan Plan: -Vertigo: Peripheral vertigo secondary to labyrinthitis and nausea vomiting secondary to that symptomatically treatment for labyrinthitis. -Possible acute suppurative otitis media of the left ear along with maxillary sinusitis: Patient will be started on Rocephin empirically. Patient will follow -up with the ENT upon discharge tomorrow. -Mild COPD exacerbation patient will be started on inhaled steroids inhalational treatments nicotine cessation counseling was provided -Gastroesophageal reflux disease -Type 2 diabetes mellitus next and-hyperresonance and have an sleep apnea For above-mentioned chronic medical problems patient will be resumed on appropriate home medications.
[2018-02-17] MEDS: IPRATROPIUM-ALBUTEROL 3 ML NEB INHALATION SCH ×2 (15:44→19:26)
[2018-02-17] MEDS: ONDANSETRON 4 MG/2 ML VIAL IVP PRN (17:10)
[2018-02-17 17:37] LABS: Glucose,Whole Blood 197 mg/dL (75-99)
[2018-02-17] MEDS: INSULIN ASPART 100 UNIT/ML 1 ML 10 ML VIAL SQ SCH ×2 (17:41→21:11)
[2018-02-17] MEDS: SYMBICORT 160-4.5 MCG INHALER INHALATION SCH (19:26)
[2018-02-17] MEDS: MECLIZINE 25 MG TAB PO PRN (19:28)
[2018-02-17 20:12] LABS: Glucose,Whole Blood 349 mg/dL (75-99)
[2018-02-17] MEDS: INSULIN DETEMIR 100 UNIT/ML 10 ML VIAL SQ SCH (21:11)
[2018-02-17] MEDS: ALPRAZolam 0.5 MG TAB PO PRN (21:11)
[2018-02-17 23:38] LABS: Cholesterol 180 mg/dL (<200); HDL Cholesterol 42 mg/dL (40-60); LDL Cholesterol,Calculated 102 mg/dL (0-99); Triglycerides 178 mg/dL (<150)
[2018-02-18] MEDS: ONDANSETRON 4 MG/2 ML VIAL IVP PRN ×2 (00:36→06:35)
[2018-02-18] MEDS: SODIUM CHLORIDE 0.9% 1,000 ML IV SCH ×3 (00:40→20:25)
[2018-02-18 02:42] LABS: Hemoglobin A1C 12.1 % (4.0-6.0)
[2018-02-18 02:57] LABS: Glucose,Whole Blood 118 mg/dL (75-99)
[2018-02-18] MEDS: ACETAMINOPHEN TAB 325 MG TAB PO PRN ×2 (03:23→11:55)
[2018-02-18] MEDS: MECLIZINE 25 MG TAB PO PRN (06:38)
[2018-02-18 07:37] LABS: Glucose,Whole Blood 97 mg/dL (75-99)
[2018-02-18] MEDS: INSULIN ASPART 100 UNIT/ML 1 ML 10 ML VIAL SQ SCH ×4 (07:38→20:25)
[2018-02-18] MEDS: IPRATROPIUM-ALBUTEROL 3 ML NEB INHALATION SCH ×4 (08:24→20:05)
[2018-02-18] MEDS: SYMBICORT 160-4.5 MCG INHALER INHALATION SCH ×2 (08:24→20:05)
[2018-02-18] MEDS: ENOXAPARIN 40 MG/0.4 ML SYRINGE SQ SCH (08:31)
[2018-02-18] MEDS: ASPIRIN 325 MG TAB PO SCH (08:31)
[2018-02-18 10:54] VITALS: BMI 41.1
[2018-02-18 11:49] LABS: Glucose,Whole Blood 199 mg/dL (75-99)
--- NOTE | 2018-02-18 12:36 | P.PN ---
Subjective 53-year-old admitted secondary to vertigo which was believed secondary to labyrinthitis and patient appears to have mastoiditis or acute suppurative otitis media. Patient is complaining of severe pain and dizziness. I'll obtain consultation from ENT. She is still little bit nauseous. Constitutional: Denied any fatigue denied any fever. Cardio vascular: denied any chest pain, palpitations Gastrointestinal as mentioned above Pulmonary: Denied any shortness of breath cough Neurologic denied any new focal deficits All inpatient medications were reviewed and appropriate changes in these medications as dictated in the interval history and assessment and plan. Objective - Vital Signs Vital signs: Vital Signs Temp 98.2 F 02/18/18 04:48 Pulse 85 02/18/18 04:48 Resp 16 02/18/18 04:48 BP 94/62 02/18/18 04:48 Pulse Ox 97 02/18/18 04:48 Intake & Output 02/17/18 02/18/18 02/18/18 18:59 06:59 18:59 Intake Total 1490 Balance 1490 Weight 108.862 kg 108.862 kg Intake: Intake, IV Titration 900 Amount Sodium Chloride 0.9% 1, 900 000 ml @ 100 mls/hr IV . Q10H FARIDA Rx#:[id number] Oral 590 Other: Voiding Method Toilet Toilet # Voids 1 - Exam PHYSICAL EXAMINATION: GENERAL: The patient is alert and oriented x3, not in any acute distress. Well developed, well nourished. HEENT: Pupils are round and equally reacting to light. EOMI. No scleral icterus. No conjunctival pallor. Normocephalic, atraumatic. No pharyngeal erythema. No thyromegaly. Patient has significant cerumen in the left ear because of which the left middle ear exam is limited patient does have left maxillary sinus tenderness left mastoid tenderness. CARDIOVASCULAR: S1 and S2 present. No murmurs, rubs, or gallops. PULMONARY: Wheezing resolved at good air entry into bilateral lung coulter ABDOMEN: Soft, nontender, nondistended, normoactive bowel sounds. No palpable organomegaly. MUSCULOSKELETAL: No joint swelling or deformity. EXTREMITIES: No cyanosis, clubbing, or pedal edema. NEUROLOGICAL: Gross neurological examination did not reveal any focal deficits. SKIN: No rashes. - Labs CBC & Chem 7: 02/17/18 10:15 02/17/18 10:15 Labs: Abnormal Lab Results - Last 24 Hours (Table) 02/17/18 02/17/18 02/17/18 Range/Units 10:15 10:15 17:37 POC Glucose (mg/dL) 197 H (75-99) mg/dL Hemoglobin A1c 12.1 H (4.0-6.0) % Triglycerides 178 H (<150) mg/dL LDL Cholesterol, Calc 102 H (0-99) mg/dL 02/17/18 02/18/18 02/18/18 Range/Units 20:11 02:56 11:47 POC Glucose (mg/dL) 349 H 118 H 199 H (75-99) mg/dL Hemoglobin A1c (4.0-6.0) % Triglycerides (<150) mg/dL LDL Cholesterol, Calc (0-99) mg/dL Assessment and Plan Plan: -Vertigo: Peripheral vertigo secondary to labyrinthitis and nausea vomiting secondary to that symptomatically treatment for labyrinthitis. -Possible acute suppurative otitis media of the left ear along with maxillary sinusitis: Patient will be started on Rocephin empirically. Cousins nonimprovement of symptoms I'll consult ENT -Mild COPD exacerbation patient will be started on inhaled steroids inhalational treatments nicotine cessation counseling was provided, improved wheezing today -Gastroesophageal reflux disease -Type 2 diabetes mellitus -Obstructive sleep apnea For above-mentioned chronic medical problems patient will be resumed on appropriate home medications.
[2018-02-18] MEDS: DIAZEPAM 5 MG/ML (10 ML MDV) IVP PRN ×2 (12:39→19:18)
--- NOTE | 2018-02-18 15:43 | P.GSCN ---
History of Present Illness Consult date: 02/18/18 Reason for Consult: Dizziness Requesting physician: Arie Webber History of present illness: This patient is a 53-year-old white female who has a two-year history of intermittent dizziness. For the last 2 years she has been intermittently seen in the emergency room for her dizziness. They thought the dizziness was from her diabetes and was sent home. The last 2 weeks her dizziness is worsened. She developed some ear pain bilaterally with a left to being worse than the right. She describes the dizziness as true vertigo with associated nausea but denies any syncope. It is worse with movement but movement is not causal effect to her dizziness. She denies any hearing loss she denies any tinnitus she denies any family history of hearing loss. She does admit to some sneezing itching and nasal congestion. The drainage is yellow or green. She denies any neurologic symptoms. She tells me or logically she has left ear pain. She has a [id number] history of smoking and drinks minimally. She denies any neurologic symptoms such as numbness weakness paralysis etc. Or logically she just has some left ear pain. She is hoarse and was told that she needs a laryngoscopy which we will be doing on an outpatient basis later. We do not have the equipment for full laryngeal evaluation at this time. She understands that she is to follow-up in the office for laryngeal exam. Review of Systems - Constitutional Denies chills - EENT Ears, nose, mouth and throat: Reports ant. neck pain, Denies epistaxis - Cardiovascular Denies chest pain, Denies irregular heart beat - Respiratory Denies cough with sputum - Gastrointestinal Denies belching - Genitourinary Genitourinary: Denies abnormal vaginal bleeding Menstruation: Reports as per HPI - Musculoskeletal Reports as per HPI - Integumentary Denies brittle nails - Neurological Reports balance difficulties - Psychiatric Denies anxiety attacks - Endocrine Denies excessive sweating - Allergic/Immunologic Reports allergic rhinitis Past Medical History Past Medical History: Asthma, COPD, Diabetes Mellitus, GERD/Reflux, Osteoarthritis (OA), Pneumonia, Sleep Apnea/CPAP/BIPAP, Thyroid Disorder Additional Past Medical History / Comment(s): IDDM type II, bilateral feet neuropathy, hiatal hernia, superficial blood clots in legs, varicose veins bilaterally, RLS, thyroid nodules, JOHNATHAN-no treatment required, diverticulitis with bowel resection, "dizzy spells" in the past. History of Any Multi-Drug Resistant Organisms: None Reported Past Surgical History: Adenoidectomy, Bladder Surgery, Joint Replacement, Orthopedic Surgery, Tonsillectomy Additional Past Surgical History / Comment(s): BINA TOTAL KNEE, LT X2. CTR LT HAND; LT ULNAR NERVE REPAIR; LT ANKLE SPUR, MUSCLE SURG; LT SHOULDER RECONSTRUCTION. COLONOSCOPY, EGD. D&C, BLADDER SUSPENSION W/ MESH., LOW ANTERIOR SIGMOIG RESECTION 03-24-2017 Past Anesthesia/Blood Transfusion Reactions: Previous Problems w/ Anesthesia, Motion Sickness Additional Past Anesthesia/Blood Transfusion Reaction / Comm: slow to wake up @ times Smoking Status: Current every day smoker - Past Family History Mother Family Medical History: Cancer, Deep Vein Thrombosis (DVT) Additional Family Medical History / Comment(s): Mother of esophageal cancer at the age of 62 yrs. Father Family Medical History: Deep Vein Thrombosis (DVT) Additional Family Medical History / Comment(s): Father from heart and lung disease at the age of 67yrs. Medications and Allergies Home Medications Medication Instructions Recorded Confirmed Type Insulin Glargine [Lantus] 100 unit SQ HS 05/19/14 02/17/18 History Ibuprofen [Motrin] 800 mg PO Q8H PRN 10/06/15 02/17/18 History Insulin Aspart [NovoLOG 20 - 30 unit SQ AC-TID 12/24/16 02/17/18 History (formulary)] ALPRAZolam [Xanax] 0.5 mg PO HS PRN 02/12/17 02/17/18 History Albuterol Inhaler [Ventolin Hfa 1 - 2 puff INHALATION RT-Q6H PRN 03/23/17 History Inhaler] Naproxen Sodium [Aleve] 440 mg PO Q12HR PRN 02/17/18 02/17/18 History Allergies Allergy/AdvReac Type Severity Reaction Status Date / Time nickel [Nickel] Allergy PAIN FROM Verified 02/17/18 10:57 KNEE IMPLANT Surgical - Exam Osteopathic Statement: *. No significant issues noted on an osteopathic structural exam other than those noted in the History and Physical/Consult. Vital Signs Temp Pulse Resp BP Pulse Ox 97.7 F 78 18 125/91 97 02/17/18 09:55 02/17/18 09:55 02/17/18 09:55 02/17/18 09:55 02/17/18 09:55 - General well developed, well nourished, no distress, moderate pain, obese - Eyes PERRL, normal ocular movement - ENT normal pinna, normal nares, normal mucosa, no hearing loss, no congestion - Neck Left anterior neck tenderness to touch no masses, no bruits, trachea midline, no lymphadectomy, no venous distension Results - Labs 02/17/18 10:15 02/17/18 10:15 Abnormal Lab Results - Last 24 Hours (Table) 02/17/18 02/17/18 02/17/18 Range/Units 10:15 10:15 17:37 POC Glucose (mg/dL) 197 H (75-99) mg/dL Hemoglobin A1c 12.1 H (4.0-6.0) % Triglycerides 178 H (<150) mg/dL LDL Cholesterol, Calc 102 H (0-99) mg/dL 02/17/18 02/18/18 02/18/18 Range/Units 20:11 02:56 11:47 POC Glucose (mg/dL) 349 H 118 H 199 H (75-99) mg/dL Hemoglobin A1c (4.0-6.0) % Triglycerides (<150) mg/dL LDL Cholesterol, Calc (0-99) mg/dL Diabetes panel 02/17/18 02/17/18 Range/Units 10:15 10:15 Hemoglobin A1c 12.1 H (4.0-6.0) % Triglycerides 178 H (<150) mg/dL HDL Cholesterol 42 (40-60) mg/dL Assessment and Plan (1) Vertigo Current Visit: Yes Status: Acute Code(s): R42 - DIZZINESS AND GIDDINESS SNOMED Code(s): 988312546 (2) Otalgia of both ears Current Visit: Yes Status: Acute Code(s): H92.03 - OTALGIA, BILATERAL SNOMED Code(s): 993699389 (3) Neck pain Current Visit: Yes Status: Acute Code(s): M54.2 - CERVICALGIA SNOMED Code( s): 02410238 (4) Cervical osteoarthritis Current Visit: Yes Status: Acute Code(s): M47.812 - SPONDYLOSIS W/O MYELOPATHY OR RADICULOPATHY, CERVICAL REGION SNOMED Code(s): 832768851 (5) Chronic sinusitis Current Visit: Yes Status: Acute Code(s): J32.9 - CHRONIC SINUSITIS, UNSPECIFIED SNOMED Code(s): 48275144 Plan: Regarding the patient's dizziness, she is in need of an electronystagmogram and audiometric evaluation which I can do in the office after discharge. I would keep her on balance medication until we see her back in the office. She been advised that she is at fall risk. I do recommend a CAT scan i of the neck n light of the patient's excruciating a left neck pain. This may be from some cervical osteoarthritis. Her voice is quite hoarse and she needs a laryngeal examination which I'm unable to do here in the bedside. I'm recommending that she follow up with me for laryngeal exam an light of her hoarseness and tobacco history. Tobacco cessation was strongly encouraged Patient has chronic sinusitis and antibiotics have been prescribed. I think we can discharge her with dizziness medication such as a senior case manager diazepam low-dose or meclizine or a Transderm scopolamine patch. I've given her my card and she is to follow up with me after discharge. Time with Patient: Greater than 30
[2018-02-18] MEDS ORDERED: FLUTICASONE 50MCG/SPRAY NASAL 16GM EA NOSTRIL PRN (15:45)
[2018-02-18] MEDS: ACYCLOVIR 800 MG TAB PO SCH ×2 (16:43→20:26)
[2018-02-18 17:38] LABS: Glucose,Whole Blood 205 mg/dL (75-99)
--- NOTE | 2018-02-18 19:07 | CT ---
EXAMINATION TYPE: CT soft tissue neck w con DATE OF EXAM: 02/18/2018 6:29 PM COMPARISON: Left side neck pain HISTORY: left sided neck pain, dizziness, loss of balance CT DLP: 516 mGycm Automated exposure control for dose reduction was used. CONTRAST: CT scan of the neck is performed following with IV Contrast, patient injected with 80 mL of Isovue 30 0. Axial images are obtained, coronal and sagittal reformatted images are reviewed. FINDINGS: There is mild mucosal thickening in the ethmoid air cells. Parotid glands are symmetric. The submandi bular salivary glands are symmetric. The thyroid gland is symmetric. There is increased density at th e base of the tongue that could be mucus. A mass at the base of the tongue cannot be excluded. The pr evertebral soft tissues are not enlarged. The epiglottis appears normal. The subglottic trachea appea rs normal. Cervical vertebra have normal spacing and alignment. Posterior elements are intact. There is some facet arthropathy in the cervical spine. There is no compression fracture. I see no cervical adenopathy. There is normal contrast opacification of the carotid arteries and jugular veins. There i s bilateral contrast opacification of the vertebral arteries. IMPRESSION: Increased density at the base of the tongue. A tongue mass cannot be excluded. Correlati on with physical exam is needed. Normal epiglottis.
[2018-02-18 20:22] LABS: Glucose,Whole Blood 294 mg/dL (75-99)
[2018-02-18] MEDS: ALPRAZolam 0.5 MG TAB PO PRN (20:25)
[2018-02-18] MEDS: INSULIN DETEMIR 100 UNIT/ML 10 ML VIAL SQ SCH (20:25)
[2018-02-18] MEDS: AMOXIC-POT CLAV 875-125MG 1 EACH TAB PO SCH (20:26)
--- NOTE | 2018-02-18 21:18 | P.PN ---
Subjective Progress Note Date: 02/18/18 Principal diagnosis: Dizziness Patient off floor for testing, unable to be rounded on by neurology. Will attempt to round on patient on 02/19/18. Objective - Vital Signs Vital signs: Vital Signs Temp 97.6 F 02/18/18 12:29 Pulse 83 02/18/18 12:29 Resp 20 02/18/18 12:29 BP 167/72 02/18/18 12:29 Pulse Ox 94 L 02/18/18 12:29 Intake & Output 02/18/18 02/18/18 02/19/18 06:59 18:59 06:59 Intake Total 1490 850 Balance 1490 850 Weight 108.862 kg Intake: Intake, IV Titration 900 850 Amount Sodium Chloride 0.9% 1, 900 800 000 ml @ 100 mls/hr IV . Q10H [facility] Rx#:[id number] cefTRIAXone 1,000 mg In 50 Sodium Chloride 0.9% 50 ml @ 100 mls/hr IVPB Q24HR [facility] Rx#:[id number] Oral 590 Other: Voiding Method Toilet Toilet # Voids 1 - Labs CBC & Chem 7: 02/17/18 10:15 02/17/18 10:15 Labs: Abnormal Lab Results - Last 24 Hours (Table) 02/17/18 02/17/18 02/18/18 Range/Units 10:15 10:15 02:56 POC Glucose (mg/dL) 118 H (75-99) mg/dL Hemoglobin A1c 12.1 H (4.0-6.0) % Triglycerides 178 H (<150) mg/dL LDL Cholesterol, Calc 102 H (0-99) mg/dL 02/18/18 02/18/18 02/18/18 Range/Units 11:47 17:36 20:20 POC Glucose (mg/dL) 199 H 205 H 294 H (75-99) mg/dL Hemoglobin A1c (4.0-6.0) % Triglycerides (<150) mg/dL LDL Cholesterol, Calc (0-99) mg/dL
[2018-02-18 22:41] VITALS: RESP 16
[2018-02-19] MEDS: DIAZEPAM 5 MG/ML (10 ML MDV) IVP PRN ×2 (01:56→08:14)
[2018-02-19] MEDS: SODIUM CHLORIDE 0.9% 1,000 ML IV SCH (05:49)
[2018-02-19 06:43] LABS: Glucose,Whole Blood 212 mg/dL (75-99)
[2018-02-19] MEDS: IPRATROPIUM-ALBUTEROL 3 ML NEB INHALATION SCH ×2 (07:37→11:08)
[2018-02-19] MEDS: SYMBICORT 160-4.5 MCG INHALER INHALATION SCH (07:37)
[2018-02-19] MEDS: ASPIRIN 325 MG TAB PO SCH (08:02)
[2018-02-19] MEDS: ENOXAPARIN 40 MG/0.4 ML SYRINGE SQ SCH (08:02)
[2018-02-19] MEDS: INSULIN ASPART 100 UNIT/ML 1 ML 10 ML VIAL SQ SCH ×2 (08:02→14:05)
[2018-02-19] MEDS: AMOXIC-POT CLAV 875-125MG 1 EACH TAB PO SCH (08:03)
[2018-02-19] MEDS: ACYCLOVIR 800 MG TAB PO SCH (08:03)
[2018-02-19 11:01] LABS: Glucose,Whole Blood 244 mg/dL (75-99)
[2018-02-19 12:24] VITALS: BP 131/88; PULSE 80; TEMP 94.5
--- NOTE | 2018-02-19 14:03 | P.DS ---
Providers Date of admission: 02/17/18 13:16 Attending physician: Aire Webber Consults: 02/18/18 12:29 Consult Physician Routine Consulting Provider: John Horton Consult Reason/Comments: vertigo, ear pain Do you want consulting provider notified?: Yes 02/18/18 15:44 Consult Physician Routine Consulting Provider: Garfield Goetz Consult Reason/Comments: dizziness Do you want consulting provider notified?: Already Contacted Primary care physician: Raffy Hernandez [facility] Course: 53-year-old admitted secondary to vertigo which was believed secondary to labyrinthitis and patient appears to have mastoiditis or acute suppurative otitis media. Patient's symptoms again improved patient had a CAT scan of the neck because of some dysphagia although patient is able to eat well today. Radiologist who read the CAT scan that he does cannot exclude a soft tissue mass behind the tongue. Same thing was discussed with ENT physician. Patient will follow with ENT who will do a laryngoscope along with electronystagmogram and audiometric evaluation as an outpatient. MRI was ordered by neurology after the MRI results patient will be discharged with meclizine, acyclovir for a week and Augmentin for a week. Patient is still bit dizzy PHYSICAL EXAMINATION: GENERAL: The patient is alert and oriented x3, not in any acute distress. Well developed, well nourished. HEENT: Pupils are round and equally reacting to light. EOMI. No scleral icterus. No conjunctival pallor. Normocephalic, atraumatic. No pharyngeal erythema. No thyromegaly. Patient has significant cerumen in the left ear because of which the left middle ear exam is limited patient does have left maxillary sinus tenderness left mastoid tenderness. CARDIOVASCULAR: S1 and S2 present. No murmurs, rubs, or gallops. PULMONARY: Wheezing resolved at good air entry into bilateral lung coulter ABDOMEN: Soft, nontender, nondistended, normoactive bowel sounds. No palpable organomegaly. MUSCULOSKELETAL: No joint swelling or deformity. EXTREMITIES: No cyanosis, clubbing, or pedal edema. NEUROLOGICAL: Gross neurological examination did not reveal any focal deficits. SKIN: No rashes. Assessment and Plan Plan: -Vertigo: Peripheral vertigo secondary to labyrinthitis and nausea vomiting secondary to that symptomatically treatment for labyrinthitis. -Possible acute suppurative otitis media of the left ear along with maxillary sinusitis: She and is being discharged on Augmentin and acyclovir were -Possible soft tissue mass or swelling behind the throat patient will undergo laryngoscopy as an outpatient in ENT clinic -Mild COPD exacerbation improved with inhaled steroids patient will be discharged on his steroids and patient will continue her as needed albuterol -Gastroesophageal reflux disease -Type 2 diabetes mellitus -Obstructive sleep apnea Patient Condition at Discharge: Fair Plan - Discharge Summary Discharge Rx Participant: No New Discharge Prescriptions: New Acyclovir [Zovirax] 800 mg PO TID #20 tab Amoxic-Pot Clav 875-125Mg [Augmentin 875-125] 1 each PO Q12HR #14 tab Budesonide-Formot 160-4.5 Mcg [Symbicort 160-4.5 Mcg Inhaler] 2 puff INHALATION RT-BID #1 inhaler Meclizine [Antivert] 25 mg PO TID PRN #30 tab PRN Reason: Vertigo Continue Insulin Glargine [Lantus] 100 unit SQ HS Insulin Aspart [NovoLOG (formulary)] 20 - 30 unit SQ AC-TID ALPRAZolam [Xanax] 0.5 mg PO HS PRN PRN Reason: Anxiety/SLEEP Albuterol Inhaler [Ventolin Hfa Inhaler] 1 - 2 puff INHALATION RT-Q6H PRN PRN Reason: Dyspnea Naproxen Sodium [Aleve] 440 mg PO Q12HR PRN PRN Reason: Pain Discontinued Ibuprofen [Motrin] 800 mg PO Q8H PRN PRN Reason: Pain Discharge Medication List Insulin Glargine [Lantus] 100 unit SQ HS 05/19/14 [History] Insulin Aspart [NovoLOG (formulary)] 20 - 30 unit SQ AC-TID 12/24/16 [History] ALPRAZolam [Xanax] 0.5 mg PO HS PRN 02/12/17 [History] Albuterol Inhaler [Ventolin Hfa Inhaler] 1 - 2 puff INHALATION RT-Q6H PRN [History] Naproxen Sodium [Aleve] 440 mg PO Q12HR PRN 02/17/18 [History] Acyclovir [Zovirax] 800 mg PO TID #20 tab 02/19/18 [Rx] Amoxic-Pot Clav 875-125Mg [Augmentin 875-125] 1 each PO Q12HR #14 tab 02/19/18 [ Rx] Budesonide-Formot 160-4.5 Mcg [Symbicort 160-4.5 Mcg Inhaler] 2 puff INHALATION RT-BID #1 inhaler 02/19/18 [Rx] Meclizine [Antivert] 25 mg PO TID PRN #30 tab 02/19/18 [Rx] Follow up Appointment(s)/Referral(s): Dana Akbar MD [Primary Care Provider] - 3 Days Darnell May DO [Doctor of Osteopathic Medicine] - 1 Week Patient Instructions/Handouts: Dizziness (ED) Discharge Disposition: HOME SELF-CARE
--- NOTE | 2018-02-19 14:25 | MR ---
EXAMINATION TYPE: MR brain wo/w con DATE OF EXAM: 02/19/2018 COMPARISON: None HISTORY: Dizziness, Left unilateral head pain, retrorbital pain TECHNIQUE: Multiplanar, multisequence images of the brain and brainstem is performed without and with IV contras t, utilizing 10 mL intravenous Gadavist . FINDINGS: Ventricles of normal size. There is no mass effect nor midline shift. There is no sign of intracrania l hemorrhage. There is mucosal thickening in the ethmoid air cells. Corpus callosum appears normal. Sella turcica is normal. Brainstem appears normal. There is normal co ntrast opacification of the venous sinuses. There is no pathologic enhancement. There is no evidence of cortical infarct. IMPRESSION: Ethmoid sinusitis. Otherwise negative MR scan of the brain.
[2018-02-19] MEDS ORDERED: diphenhydrAMINE 25 MG CAP PO PRN (14:33)
--- NOTE | 2018-02-19 17:54 | P.CNNES ---
History of Present Illness Consult date: 02/19/18 Requesting physician: Darnell May Reason for Consult: vertigo Chief complaint: dizziness History of Present Illness: Consult Date 02/19/18 @ 1310 hours: Neurology is consulting on a 53-year-old female with 2 year history of intermittent dizziness. Patient was presented at the ED multiple times for dizziness but has a history of diabetes and was sent home. Patient developed some ear pain on the left greater than right which is described as consistent with true vertigo with nausea but denies syncope. Pain is worse with movement. Patient did have some drainage. Patient does have sneezing and nasal congestion. Patient denies any neurological symptoms or neurological deficits at this time. Patient does have a significant smoking history of greater than 40 years. Patient does consume intoxicants of the social use history. Patient does have some left ear pain, hoarseness of voice as well. Patient did have CT brain which noted mild to moderate chronic paranasal sinus disease but was otherwise unremarkable. CT brain also included the internal auditory canals. A CT of the soft tissue of the neck noted density at the base of the tongue. A tongue mass cannot be excluded and correlation with physical exam was recommended. Primary team and ear nose and throat provider were managing these findings. On contact, patient was right lateral recumbent in bed with mild to moderate ear and left-sided head pain but in no acute distress. Review of Systems systems not noted in HPI are negative Past Medical History Past Medical History: Asthma, COPD, Diabetes Mellitus, GERD/Reflux, Osteoarthritis (OA), Pneumonia, Sleep Apnea/CPAP/BIPAP, Thyroid Disorder Additional Past Medical History / Comment(s): IDDM type II, bilateral feet neuropathy, hiatal hernia, superficial blood clots in legs, varicose veins bilaterally, RLS, thyroid nodules, JOHNATHAN-no treatment required, diverticulitis with bowel resection, "dizzy spells" in the past. History of Any Multi-Drug Resistant Organisms: None Reported Past Surgical History: Adenoidectomy, Bladder Surgery, Joint Replacement, Orthopedic Surgery, Tonsillectomy Additional Past Surgical History / Comment(s): BINA TOTAL KNEE, LT X2. CTR LT HAND; LT ULNAR NERVE REPAIR; LT ANKLE SPUR, MUSCLE SURG; LT SHOULDER RECONSTRUCTION. COLONOSCOPY, EGD. D&C, BLADDER SUSPENSION W/ MESH., LOW ANTERIOR SIGMOIG RESECTION 03-24-2017 Past Anesthesia/Blood Transfusion Reactions: Previous Problems w/ Anesthesia, Motion Sickness Additional Past Anesthesia/Blood Transfusion Reaction / Comment(s): slow to wake up @times Smoking Status: Current every day smoker - Past Family History Mother Family Medical History: Cancer, Deep Vein Thrombosis (DVT) Additional Family Medical History / Comment(s): Mother of esophageal cancer at the age of 62 yrs. Father Family Medical History: Deep Vein Thrombosis (DVT) Additional Family Medical History / Comment(s): Father from heart and lung disease at the age of 67yrs. Medications and Allergies Home Medications Medication Instructions Recorded Confirmed Type Insulin Glargine [Lantus] 100 unit SQ HS 05/19/14 02/17/18 History Insulin Aspart [NovoLOG 20 - 30 unit SQ AC-TID 12/24/16 02/17/18 History (formulary)] ALPRAZolam [Xanax] 0.5 mg PO HS PRN 02/12/17 02/17/18 History Albuterol Inhaler [Ventolin Hfa 1 - 2 puff INHALATION RT-Q6H PRN 03/23/17 History Inhaler] Naproxen Sodium [Aleve] 440 mg PO Q12HR PRN 02/17/18 02/17/18 History Acyclovir [Zovirax] 800 mg PO TID #20 tab 02/19/18 Rx Amoxic-Pot Clav 875-125Mg 1 each PO Q12HR #14 tab 02/19/18 Rx [Augmentin 875-125] Budesonide-Formot 160-4.5 Mcg 2 puff INHALATION RT-BID #1 inhaler 02/19/18 Rx [Symbicort 160-4.5 Mcg Inhaler] Meclizine [Antivert] 25 mg PO TID PRN #30 tab 02/19/18 Rx Allergies Allergy/AdvReac Type Severity Reaction Status Date / Time nickel [Nickel] Allergy PAIN FROM Verified 02/17/18 10:57 KNEE IMPLANT Physical Examination - Vital Signs Vital Signs: Vital Signs Temp Pulse Resp BP BP Pulse Ox 02/19/18 12:00 94.5 F L 80 16 131/88 96 02/19/18 08:00 92 16 02/19/18 07:38 93 L 02/19/18 05:00 97.8 F 92 16 90/61 93 L 02/19/18 00:00 16 02/18/18 21:00 97.9 F 84 16 115/72 93 L Intake and Output 02/19/18 02/19/18 02/19/18 06:59 14:59 22:59 Intake Total 1630 1810 Balance 1630 1810 Intake: Intake, IV Titration 800 850 Amount Sodium Chloride 0.9% 1, 800 800 000 ml @ 100 mls/hr IV . Q10H FARIDA Rx#:[id number] cefTRIAXone 1,000 mg In 50 Sodium Chloride 0.9% 50 ml @ 100 mls/hr IVPB Q24HR FARIDA Rx#:[id number] Oral 830 960 Other: Voiding Method Toilet Toilet # Voids 2 3 General appearance: Alert & oriented x3, no apparent distress. Head: Atraumatic, normocephalic, normal inspection Eyes: PERRLA, EOMI. Ear, nose and throat: left ear extremely sensitive to touch Neck: tenderness bilaterally, with radiation into the left mandible Respiratory: No increased work of breathing Cardiovascular: Regular rate, rhythm GI/abdominal: No guarding, no rigidity Extremities: moves all extremities Neurological: cranial nerves II through XII intactgrossly no lateralizing weakness no seizure activity noted on physical exam no pronator drift and on nystagmus testing, right eye will have blurry vision horizontal tracking to the left Finger to nose testing invoked blurry vision with minimal effort and increased head pain left greater than right. Also depth perception abnormalities left greater than right Strength: full in all 4 extremities Sensation: Left lower extremity: normal Right lower extremity: normal Left upper extremity: normal Right upper extremity:normal Psychological: Mood and Affect appropriate for setting Results - Laboratory Findings CBC and BMP: 02/17/18 10:15 02/17/18 10:15 Abnormal Lab Findings: Abnormal Labs 02/17/18 02/17/18 02/17/18 10:15 10:15 10:15 Hct 46.3 H APTT 21.3 L Creatinine 0.31 L Glucose 257 H POC Glucose (mg/dL) Hemoglobin A1c Plasma Lactic Acid Thuan Triglycerides LDL Cholesterol, Calc Urine Glucose (UA) 02/17/18 02/17/18 02/17/18 10:15 10:15 10:15 Hct APTT Creatinine Glucose POC Glucose (mg/dL) Hemoglobin A1c 12.1 H Plasma Lactic Acid Thuan 3.1 H* Triglycerides 178 H LDL Cholesterol, Calc 102 H Urine Glucose (UA) 02/17/18 02/17/18 02/17/18 11:38 17:37 20:11 Hct APTT Creatinine Glucose POC Glucose (mg/dL) 197 H 349 H Hemoglobin A1c Plasma Lactic Acid Thuan Triglycerides LDL Cholesterol, Calc Urine Glucose (UA) 4+ H 02/18/18 02/18/18 02/18/18 02:56 11:47 17:36 Hct APTT Creatinine Glucose POC Glucose (mg/dL) 118 H 199 H 205 H Hemoglobin A1c Plasma Lactic Acid Thuan Triglycerides LDL Cholesterol, Calc Urine Glucose (UA) 02/18/18 02/19/18 02/19/18 20:20 06:40 10:59 Hct APTT Creatinine Glucose POC Glucose (mg/dL) 294 H 212 H 244 H Hemoglobin A1c Plasma Lactic Acid Thuan Triglycerides LDL Cholesterol, Calc Urine Glucose (UA) Assessment and Plan (1) Vertigo Narrative/Plan: she does appear to have vertigo at this time. Patient has been responding well to meclizine 25 mg as implemented by ear nose and throat provider. Continue medication as implemented with neurological surveillance checks every shift. Advise neurology with any neurological status changes. Status: Acute Code(s): R42 - DIZZINESS AND GIDDINESS SNOMED Code(s): 449617404 (2) Visual changes Narrative/Plan: Patient's visual changes are highly concerning given the fact that the patient has noted mass at the back of the tongue for possible metastases to the brain if the mass is known later to be cancerous. At this time I am going to order an MRI of the brain with and without contrast rule out any other underlying etiology to account for patient's visual changes including possible metastasis. I also going to order an EEG at this time. Status: Acute Code(s): H53.9 - UNSPECIFIED VISUAL DISTURBANCE SNOMED Code(s) : 307334519 (3) Neck pain Narrative/Plan: as noted by ear nose and throat provider, defer to ear nose and throat provider and primary team for tongue mass. Status: Acute Code(s): M54.2 - CERVICALGIA SNOMED Code(s): 75399526 (4) Otalgia of both ears Narrative/Plan: defer to primary team in your nose and throat provider Status: Acute Code(s): H92.03 - OTALGIA, BILATERAL SNOMED Code(s): 574344277 Plan: patient does appear to be experiencing symptoms consistent with vertigo. Patient is responding to meclizine medication as prescribed by her nose and throat provider. Physical exam findings that are concerning relate to the patient's visual changes with nystagmus and finger-nose testing. MRI is pending for investigation and rule out of possible metastasis related concerns given the known mass of the patient's back of the tongue. Neurology will continue to follow and provide updates as needed or warranted. If patient's EEG and MRI are both negative, further workup for vision changes and vertigo can be completed in the outpatient setting at a later date. Status: Neurology will continue to follow and provide updates as needed or warranted. Contact our office with any questions I have discussed the plan of care with the physician prior to implementation and he agrees with the plan as implemented.
== END 2018-02-19 15:25 | disposition home or self-care (01) ==
LOC: EC 09:51 → 3NMEDONC 13:16
PROVIDERS: ADMIT Hospitalist; ATTEND Hospitalist
DX: H83.09 Labyrinthitis, unspecified ear (principal); J44.1 Chronic obstructive pulmonary disease with (acute) exacerbation; K21.9 Gastro-esophageal reflux disease without esophagitis; G47.33 Obstructive sleep apnea (adult) (pediatric); H92.03 Otalgia, bilateral; H61.22 Impacted cerumen, left ear; J32.9 Chronic sinusitis, unspecified; M19.90 Unspecified osteoarthritis, unspecified site; M47.812 Spondylosis without myelopathy or radiculopathy, cervical region; Z87.01 Personal history of pneumonia (recurrent); E11.40 Type 2 diabetes mellitus with diabetic neuropathy, unspecified; G25.81 Restless legs syndrome; I83.93 Asymptomatic varicose veins of bilateral lower extremities; E04.1 Nontoxic single thyroid nodule; Z86.718 Personal history of other venous thrombosis and embolism; Z80.0 Family history of malignant neoplasm of digestive organs; Z83.6 Family history of other diseases of the respiratory system; Z82.49 Family history of ischemic heart disease and other diseases of the circulatory system; Z79.4 Long term (current) use of insulin; Z79.51 Long term (current) use of inhaled steroids; Z91.048 Other nonmedicinal substance allergy status; E66.9 Obesity, unspecified; Z68.41 Body mass index [BMI] 40.0-44.9, adult; F41.9 Anxiety disorder, unspecified; F32.9 Major depressive disorder, single episode, unspecified; F17.210 Nicotine dependence, cigarettes, uncomplicated
CPT/HCPCS: 96376 ×3; 96365; 96366; 96372 ×2; 96361; 96375; 99285; 36415; 94640; 94760; 93005; 97166; 80061; 80053; 82550; 82553; 83605; 83735; 84100; 84484; 85025; 85610; 85730; 81003; 83036; 70491; 70450; 70480; 70553; G0378 ×3; J2060; J1200; J3360 ×3; J2405 ×2; J1650 ×2; J0696 ×3; A9585; Q9967

== ENCOUNTER → 2018-03-17 | Outpatient (CLI) | payer MEDICARE, OTHER ==
--- NOTE | 2018-03-17 09:26 | FL ---
EXAMINATION: Cervical and Thoracic Esophagram DATE OF EXAM: 03/17/2018 CLINICAL INDICATION: 53-year-old female with dysphasia and hoarseness. Reports epigastric pain and tr ouble swallowing. 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 Family history of esophagea l cancer. COMPARISON: Correlation CT 9 02/18/2018 Total Flouroscopy Time: 1 minute 13 seconds. Total images: 24. FINDINGS: The swallowing mechanism is normal and hypopharyngeal anatomy is preserved. The cervical and thoracic portions have a normal course and caliber and normal motility. There is nino y slight focal posterior impression onto the upper cervical esophagus. The mucosa is normal and no pe rsistent filling defect is encountered. There is a tiny hiatal hernia without gastroesophageal reflux identified even with positional or Vals garcia maneuvers. IMPRESSION: Mildly hypertrophied cricopharyngeus. Tiny hiatal hernia. No gastroesophageal reflux was seen. Otherw ise, normal appearance to the esophagus
[2018-03-17 11:52] LABS: T4, Free (Free Thyroxine) 1.29 ng/dL (0.78-2.19)
[2018-03-17 17:52] LABS: Rheumatoid Factor 8 IU/mL (0-15)
[2018-03-17 18:00] LABS: Thyroid Peroxidase Antibodies 38.2 U/mL (0.0-60.0)
[2018-03-17 19:12] LABS: Hemoglobin A1C 11.8 % (4.0-6.0)
== END | disposition home or self-care (01) ==
LOC: RADFLWHC 08:04
PROVIDERS: ATTEND Otolaryngology
DX: K44.9 Diaphragmatic hernia without obstruction or gangrene (principal); J39.2 Other diseases of pharynx; R53.83 Other fatigue; R42 Dizziness and giddiness
CPT/HCPCS: 36415; 74220; 80061; 83036; 84439; 84443; 86038; 86376; 86431

== ENCOUNTER → 2018-03-28 | Outpatient (CLI) | payer MEDICARE, OTHER ==
--- NOTE | 2018-03-29 09:47 | MM ---
Reason for exam: clinical finding. History: Patient is postmenopausal and history of other cancer. Family history of breast cancer in mother and breast cancer in maternal grandmother. Physical Findings: Nurse did not find any significant physical abnormalities on exam. MG 3D Diag Mammo W/Cad BINA Bilateral CC and MLO view(s) were taken. The breast tissue is almost entirely fat. No suspicious calcifications are seen. There is no discrete abnormality including area of concern. No significant new findings when compared with previous films. These results were verbally communicated with the patient and result sheet given to the patient on 03/28/18. ASSESSMENT: Incomplete: need additional imaging evaluation, BI-RAD 0 RECOMMENDATION: Ultrasound of the left breast.
--- NOTE | 2018-03-29 09:48 | USB ---
Reason for exam: additional evaluation requested from abnormal screening. History: Patient is postmenopausal and history of other cancer. Family history of breast cancer in mother and breast cancer in maternal grandmother. US Breast LT Left complete breast ultrasound includes all four quadrants, the retroareolar region and axilla. Finding demonstrates no cystic or solid lesion seen. These results were verbally communicated with the patient and result sheet given to the patient on 03/28/18. ASSESSMENT: Negative, BI-RAD 1 RECOMMENDATION: Routine screening mammogram of both breasts in 1 year. Manage patient on a clinical basis.
== END | disposition home or self-care (01) ==
LOC: RADMAMWWP 07:52
PROVIDERS: ATTEND Internal Medicine
DX: R92.8 Other abnormal and inconclusive findings on diagnostic imaging of breast (principal); N64.4 Mastodynia
CPT/HCPCS: 77066; 76641; G0279; 77062

== ENCOUNTER → 2018-04-05 | Outpatient (CLI) | payer MEDICARE, OTHER ==
[2018-04-05 15:09] VITALS: BP 127/76; PULSE 99; RESP 18; TEMP 97.4; BMI 39.4
--- NOTE | 2018-04-05 16:30 | P.HPOB ---
History of Present Illness H&P Date: 04/05/18 Chief Complaint: The patient is here for her routine gynecologic exam. This is a 53-year-old with an LMP of 2012. The patient is here to establish with this office. She states that is been about 6 years since her last pelvic exam. She denies any postmenopausal bleeding. She has had some avoiding difficulties she had a history of stress urinary incontinence and had some type of mesh sling procedure done around 2014. She states she was doing fine with avoiding after the sling procedure until she had a Marquez catheter placed for a bowel resection. Since that time, she states she has to lean to one side to void and this was similar to what she had to do prior to her sling procedure. Review of Systems She states her weight has been fluctuating by 20 to 30 pounds in this depends on her blood sugar control. She denies a respiratory or cardiac problems. G.I. : she alternates between constipation and loose stools. Past Medical History Past Medical History: Asthma, COPD, Diabetes Mellitus (Insulin requiring type II diabetes), GERD/Reflux, Osteoarthritis (OA), Pneumonia, Sleep Apnea/CPAP/ BIPAP, Thyroid Disorder Additional Past Medical History / Comment(s): IDDM type II, bilateral feet neuropathy, hiatal hernia, superficial blood clots in legs, varicose veins bilaterally, RLS, thyroid nodules, JOHNATHAN-no treatment required, diverticulitis with bowel resection, "dizzy spells" in the past. Peptic ulcer disease. 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 She has no other history of STDs. History of Any Multi-Drug Resistant Organisms: None Reported Past Surgical History: Adenoidectomy, Bladder Surgery (Mesh sling procedure approximate 2014.), Bowel Resection, Joint Replacement (Bilateral knee replacement), Orthopedic Surgery, Tonsillectomy Additional Past Surgical History / Comment(s): BINA TOTAL KNEE, LT X2. CTR LT HAND; LT ULNAR NERVE REPAIR; LT ANKLE SPUR, MUSCLE SURG; LT SHOULDER RECONSTRUCTION. COLONOSCOPY 2017(2nd), EGD. D&C, BLADDER SUSPENSION W/ MESH., LOW ANTERIOR SIGMOIG RESECTION 03-24-2017. Past Anesthesia/Blood Transfusion Reactions: Previous Problems w/ Anesthesia, Motion Sickness Additional Past Anesthesia/Blood Transfusion Reaction / Comment(s): slow to wake up @times Past Psychological History: Anxiety, Depression Additional Psychological History / Comment(s): Pt resides alone. She uses a cane or walker at times. She drives. Smoking Status: Former smoker (Quit 02/18/18) Past Alcohol Use History: None Reported Additional Past Alcohol Use History / Comment(s): Pt started smoking in 1972 and a pack of cigarettes will last 3 days. Quit drinking alcohol in 30s. Past Drug Use History: None Reported Additional History: . Not seeing anyone at this time and not sexually active. Disabled. - Past Family History Mother Family Medical History: Cancer, Deep Vein Thrombosis (DVT) Additional Family Medical History / Comment(s): Mother of esophageal cancer at the age of 62 yrs. Possible cervical CA. Father Family Medical History: COPD, Deep Vein Thrombosis (DVT) Additional Family Medical History / Comment(s): Father from heart and lung disease at the age of 67yrs. Sister(s) Family Medical History: Cancer Additional Family Medical History / Comment(s): Ovarian cancer. Medications and Allergies Home Medications Medication Instructions Recorded Confirmed Type Insulin Glargine [Lantus] 100 unit SQ HS 05/19/14 04/05/18 History Insulin Aspart [NovoLOG 20 - 30 unit SQ AC-TID 12/24/16 04/05/18 History (formulary)] ALPRAZolam [Xanax] 0.5 mg PO HS PRN 02/12/17 04/05/18 History Albuterol Inhaler [Ventolin Hfa 1 - 2 puff INHALATION RT-Q6H PRN 03/23/17 History Inhaler] Naproxen Sodium [Aleve] 440 mg PO Q12HR PRN 02/17/18 04/05/18 History Amoxic-Pot Clav 875-125Mg 1 each PO Q12HR #14 tab 02/19/18 04/05/18 Rx [Augmentin 875-125] Budesonide-Formot 160-4.5 Mcg 2 puff INHALATION RT-BID #1 inhaler 02/19/1804/05 Rx [Symbicort 160-4.5 Mcg Inhaler] Meclizine [Antivert] 25 mg PO TID PRN #30 tab 02/19/18 04/05/18 Rx Allergies Allergy/AdvReac Type Severity Reaction Status Date / Time nickel [Nickel] Allergy PAIN FROM Verified 04/05/18 15:02 KNEE IMPLANT Exam Vital Signs Temp Pulse Resp BP Pulse Ox 04/05/18 15:06 97.4 F L 99 18 127/76 99 Intake and Output 04/05/18 04/05/18 04/05/18 06:59 14:59 22:59 Other: Weight 104.326 kg Height 5'4", weight 230 pounds, BMI 39.5. This is a well-developed well-nourished heavyset white female who is alert and oriented times 3 in no acute distress. HEENT: Within normal limits. NECK: Supple without mass or thyromegaly. CHEST AND LUNGS: Clear to auscultation. HEART: Regular rate and rhythm. BREASTS: Are without mass or discharge. AXILLARY EXAM: Negative for adenopathy. BACK: Negative for CVA tenderness. ABDOMEN: Soft, obese, nontender, without palpable masses. PELVIC EXAM: Normal external genitalia with mild atrophy. Cervix and vagina appear normal smiled atrophy. There is no unusual discharge. There is no evidence of prolapse at rest. The afshan urethral tissue is somewhat taught and pulled up consistent with her previous sling procedure. There is a grade 1-2 cystocele with hard Valsalva and cough. No urinary leakage is demonstrated. The uterus is midposition, nongravid size and nontender. There are no palpable adnexal masses or tenderness. RECTAL EXAM: rectovaginal exam is negative for mass or tenderness and is negative for occult blood. EXTREMITIES: Nontender. IMPRESSION: 1. 53-year-old menopausal female with normal gynecologic exam. 2. Some difficulty with voiding that requires her to lean to one side to improve her stream. Possible trauma from Marquez catheter removal at the time of her bowel surgery since her symptoms started at that time. 3. Small cystocele only with Valsalva and cough which may be related to her difficulty voiding. 4. Family history of ovarian cancer in her sister. PLAN: 1. Pap smear was performed. 2. Self breast awareness was discussed with the patient. 3. Diagnostic bilateral mammogram with left breast ultrasound was done on 03/28 and was benign. Routine screening mammogram of both breasts in one year. 4. Pelvic ultrasound will be scheduled and I have recommended yearly pelvic ultrasound based on her family history. The order slip was given to the patient for this. 5. Osteoporosis prevention was discussed. I have stressed the importance of adequate calcium, vitamin D and regular exercise. Recommended amounts of calcium and vitamin D were also discussed. 6. We discussed trying to empty out her bladder as completely as possible with giving herself adequate time and relaxing. Also discussed negative Valsalva exercises which she will try to do prior to voiding. If she continues to have difficulty voiding. I recommended that she call and we can refer her to a gynecologic urologist. 7. She will return in one year.
== END ==
LOC: WWCWWP 14:29
PROVIDERS: ATTEND Obstetrics & Gynecology
DX: Z53.9 Procedure and treatment not carried out, unspecified reason (principal)

== ENCOUNTER 2018-04-21 06:15 | Day surgery (SDC) | payer MEDICARE, OTHER ==
[2018-04-19 10:43] VITALS: BMI 39.4
[~2018-04-21 06:15] MED LIST changes: +DEXAMETHASONE SOD PHOSPHATE 10 MG/ML 1 ML VIAL IV ONE; +DEXAMETHASONE SOD PHOSPHATE 4 MG/ML 1 ML VIAL IV ONE; +FAMOTIDINE 20 MG/2 ML VIAL IV ONE; -HEPARIN SODIUM,PORCINE 5,000 UNIT/ML 1 ML VIAL SQ ONE; -HYDROmorphone 0.5 MG/0.5 ML SYRINGE IVP PRN; +LACTATED RINGERS 1,000 ML IV SCH; -LIDOCAINE 1% 20 ML VIAL (10MG/ML) FOR IV START INTRADERMA PRN; +MIDAZOLAM 2 MG/2 ML VIAL IV PRN; +ONDANSETRON 4 MG/2 ML VIAL IVP ONE; +SCOPOLAMINE 1.5MG/72HR PATCH TRANSDERM ONE; +ceFAZolin 1,000 MG in DEXTROSE/WATER 1 50ML.BAG IV ONE; -ceFAZolin IN SWFI 2 GM/20 ML SYRINGE IVP ONE; -metroNIDAZOLE-NS PMX 500 MG in SALINE 1 100ML.BAG IVPB ONE
[2018-04-21] MEDS: OXYMETAZOLINE 0.05% NASL SPRAY 1 SPRAY BOTTLE NASAL ONE ×5 (06:53→07:14)
[2018-04-21] MEDS ORDERED: LIDOCAINE 1% 20 ML VIAL (10MG/ML) FOR IV START INTRADERMA ONE (07:08)
[2018-04-21] MEDS ORDERED: INSULIN ASPART (NovoLOG) 100 UNIT/ML VIAL SQ ONE (07:20)
[2018-04-21 07:21] LABS: Glucose,Whole Blood 210 mg/dL (75-99)
[2018-04-21] MEDS ORDERED: PROPOFOL 10 MG/ML 20 ML VIAL IV ONE (07:28)
[2018-04-21] MEDS ORDERED: ROCURONIUM BROMIDE 10 MG/ML 10 ML VIAL IV ONE (07:28)
[2018-04-21] MEDS ORDERED: LIDOCAINE 1% INJ 10MG/ML (20 ML MDV) ONE (07:28)
[2018-04-21] MEDS ORDERED: MIDAZOLAM 2 MG/2 ML VIAL ONE (07:28)
[2018-04-21] MEDS ORDERED: GLYCOPYRROLATE 0.2 MG/ML 2 ML VIAL ONE (07:28)
[2018-04-21] MEDS ORDERED: fentaNYL (PF) 50 MCG/ML 2 ML AMP ONE (07:28)
[2018-04-21] MEDS ORDERED: DEXAMETHASONE SOD PHOS (MDV) 100 MG/10 ML VIAL ONE (07:28)
[2018-04-21] MEDS ORDERED: NEOSTIGMINE 1 MG/ML 10 ML VIAL ONE (07:28)
[2018-04-21] MEDS ORDERED: BUPIVACAIN-EPI 0.5%-1:200,000 30 ML VIAL SQ ONE (07:57)
[2018-04-21] MEDS ORDERED: LIDOCAINE 1%-EPI 1:100,000 20 ML VIAL SUBMUCOSAL ONE (07:57)
[2018-04-21] MEDS ORDERED: EPINEPHrine 1 MG/ML (MDV) 30 ML VIAL TOPICAL ONE (07:58)
[2018-04-21] MEDS ORDERED: FLUORESCEIN STRIPS 1 MG STRIP MISCELLANE ONE (07:58)
--- NOTE | 2018-04-21 08:25 | P.OP ---
Date of Procedure: 04/21/18 Preoperative Diagnosis: Dysphonia Right vocal cord polyp Mass base of tongue Nasopharyngeal cystic mass Postoperative Diagnosis: Same Procedure(s) Performed: Direct microscopic laryngoscopy with removal of a right vocal cord polyp and a biopsy of the base the tongue Endoscopic removal of nasopharyngeal cystic mass Diagnostic nasal endoscopy Anesthesia: SOFIA Surgeon: Darnell May Estimated Blood Loss (ml): 5 Pathology: other (Right vocal cord mass, nasopharyngeal cyst, base of tongue lesion) Condition: stable Disposition: PACU Indications for Procedure: This patient has severe dysphonia and has a long history of smoking. She has a vocal cord polyp noted she also had a suspicious lesion of the base the tongue any nasopharyngeal cystic mass noted. Removal for biopsy purposes and therapeutic purposes were recommended. All risks, benefits, and alternative therapies were discussed. Consent was obtained and all questions were answered. The patient is motivated for this procedure as she is fearful of cancer from her long history of smoking and her voice is notably impaired. Operative Findings: Patient had a large polypoid mass of the right vocal cord also a suspicious lesion of the base of the tongue and a cystic mass of the nasopharynx. Description of Procedure: This patient was taken to the operative room and placed in the supine position. A general inhalation anesthetic was administered to the patient by mask and subsequently intubated with an PRESCHOOL DIRECTOR tube. With use of a gum guard a Jako laryngoscope was placed with care to avoid any trauma to the lips gums and mucosa. The entire oropharynx and hypopharynx was evaluated including the base of tongue vallecula, epiglottis, true and false vocal cords, piriform sinuses, post cricoid space etc. etc. Under microscopic evaluation a right vocal cord mass was evaluated and found be large and polypoid obstructing the airway to a certain degree. The right vocal cord polyp was removed with microsurgical technique. Excellent removal was obtained with care to avoid any trauma to the lamina propria. We then visualized the base of tongue across microscopically and found a suspicious lesion which was removed with biopsy forceps. Hemostasis was spontaneous and complete. All instrumentation was removed. Attention was then paid to the nose where a 0 Boothe elena endoscope was inserted following the left floor the nose into the nasopharynx. A large cystic mass was identified. Photograph was taken and the cystic mass was removed with a Blakesley forceps. Excellent removal was obtained. Bleeding stopped spontaneously and the patient tolerated this well. The rest of the nasopharynx and nasal area was evaluated with no signs of any other abnormalities. We evaluated the nose endoscopically bilaterally completely and a right septal deviation was noted along with this nasopharyngeal cystic mass. No other nasal and nasopharyngeal pathology was noted. All instrumentation was removed and the patient was taken to postanesthesia recovery in excellent condition.
[2018-04-21] MEDS ORDERED: ONDANSETRON 4 MG/2 ML VIAL IVP ONE (08:29)
[2018-04-21 08:35] VITALS: RESP 16; TEMP 96.8
[2018-04-21] MEDS: HYDROmorphone 0.5 MG/0.5 ML SYRINGE IVP PRN ×2 (08:47→08:57)
[2018-04-21 08:52] LABS: Glucose,Whole Blood 163 mg/dL (75-99)
[2018-04-21] MEDS ORDERED: KETOROLAC 30 MG/ML 1 ML VIAL IVP ONE (09:45)
[2018-04-21 10:03] VITALS: BP 146/94; PULSE 87
== END 2018-04-21 10:26 | disposition home or self-care (01) ==
LOC: OR 06:15
PROVIDERS: ATTEND Otolaryngology
DX: J38.1 Polyp of vocal cord and larynx (principal); J45.909 Unspecified asthma, uncomplicated; E11.42 Type 2 diabetes mellitus with diabetic polyneuropathy; J43.9 Emphysema, unspecified; Z87.891 Personal history of nicotine dependence; K21.9 Gastro-esophageal reflux disease without esophagitis; J44.9 Chronic obstructive pulmonary disease, unspecified; G47.33 Obstructive sleep apnea (adult) (pediatric); E04.1 Nontoxic single thyroid nodule; Z80.0 Family history of malignant neoplasm of digestive organs; Z79.1 Long term (current) use of non-steroidal anti-inflammatories (NSAID); Z79.4 Long term (current) use of insulin; Z79.899 Other long term (current) drug therapy; Z91.09 Other allergy status, other than to drugs and biological substances
CPT/HCPCS: 31535; 42808; 31237; 88305; 88342; 88341; J2250; J1100 ×2; J2710; J2405; J2001; J3010; J1885; J0690; J2704; J1170

== ENCOUNTER → 2018-05-07 | Outpatient (CLI) | payer MEDICARE, OTHER ==
--- NOTE | 2018-05-10 11:10 | PE ---
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 Small [id number] imaging obtained through the head and neck. Correlation to CT soft tissue neck 02/18/2018, CT abdomen 02/12/2017 Head and neck: Hypermetabolic uptake is present at the base of the tongue and vallecula with correspo nding soft tissue mass is noted on prior CT. SUV is 7.1, greatest towards the right of midline. No ev ident cervical adenopathy. Mild nasopharyngeal mucosal uptake shows SUV of only approximately 3.6-4.6 . At the level of the torus tubarius bilaterally. CHEST: No evident lung mass. No hypermetabolic uptake. No mediastinal, axillary, or hilar adenopathy, no evident endobronchial lesion. Abdomen pelvis: Liver shows low attenuation likely due to hepatic steatosis. There is a focus measuri ng approximately 2.5 cm within the liver and towards the level of the steven, shows low attenuation bu t is stable compared to prior CT, no associated hypermetabolic uptake. No retroperitoneal adenopathy. Adrenal glands are normal. Calcification in the right adnexal region is stable. Diverticular changes associated with the sigmoid colon. Osseous structures are unremarkable. No suspicious hypermetabolic uptake. Postop change noted to the left shoulder. There are facet arthropathy changes present in the cervical spine. Some mild sclerosis at the sacroiliac joints may be due to underlying stress changes. IMPRESSION: Foci of uptake in the head neck region as described. Correlate with clinical findings. No suspicious hypermetabolic uptake to suggest metastasis.
== END | disposition home or self-care (01) ==
LOC: RADPETMAIN 12:09
PROVIDERS: ATTEND Radiology Diagnostic Radiology
DX: C11.9 Malignant neoplasm of nasopharynx, unspecified (principal); E11.9 Type 2 diabetes mellitus without complications; Z79.4 Long term (current) use of insulin
CPT/HCPCS: 78815; A9552

== ENCOUNTER → 2018-06-01 | Outpatient (CLI) | payer MEDICARE, OTHER | END | disposition home or self-care (01) | LOC: LABWHC1 08:20 | PROVIDERS: ATTEND Otolaryngology | DX: E11.9 Type 2 diabetes mellitus without complications (principal) | CPT/HCPCS: 36415; 82565; 82947; 84520 ==

== ENCOUNTER 2018-09-29 18:45 | Emergency (ER) | payer MEDICARE, OTHER ==
[2018-09-29 19:04] VITALS: RESP 18
[2018-09-29] MEDS ORDERED: AMOXIC-POT CLAV 875-125MG 1 EACH TAB PO STA (19:32)
--- NOTE | 2018-09-29 19:45 | ED ---
Animal Bite HPI - General Chief Complaint: Animal Bite Stated Complaint: Cat bite Time Seen by Provider: 09/29/18 19:05 Source: patient Mode of arrival: ambulatory Limitations: no limitations - History of Present Illness Initial Comments: Patient is a 53-year-old female presenting to emergency Department with a chief complaint of a cat bite. Patient reports incident occurred yesterday when she was bitten and scratched by her cat on the palmar aspect of her right arm and distal forearm. Patient also reports a small bite on the palmar aspect of the left first digit and a minor abrasion on the left distal forearm. Patient reports erythema at the site of injuries but denies discharge. Patient reports full range of motion and minimal pain. Patient denies fever, nausea or vomiting. Patient denies taking any medications to alleviate the symptoms. - Related Data Home Medications Medication Instructions Recorded Confirmed Insulin Glargine [Lantus] 100 unit SQ HS 05/19/14 09/29/18 INSULIN ASPART (NovoLOG) [NovoLOG See Protocol SQ AC-TID 12/24/16 09/29/18 (formulary)] Ibuprofen [Motrin] 800 mg PO TID PRN 04/19/18 09/29/18 ALPRAZolam [Xanax] 1 mg PO HS PRN 09/29/18 09/29/18 Albuterol Inhaler [Ventolin Hfa 2 puff INHALATION RT-Q6H PRN 09/29/18 09/29/18 Inhaler] Cyclobenzaprine [Flexeril] 10 mg PO DAILY PRN 09/29/18 09/29/18 Allergies Allergy/AdvReac Type Severity Reaction Status Date / Time nickel [Nickel] AdvReac PAIN FROM Verified 09/29/18 19:29 KNEE IMPLANT Review of Systems ROS Statement: Those systems with pertinent positive or pertinent negative responses have been documented in the HPI. ROS Other: All systems not noted in ROS Statement are negative. Past Medical History Past Medical History: Asthma, COPD, Diabetes Mellitus, GERD/Reflux, Osteoarthritis (OA), Pneumonia, Sleep Apnea/CPAP/BIPAP, Thyroid Disorder Additional Past Medical History / Comment(s): IDDM type II, bilateral feet neur opathy, hiatal hernia, superficial blood clots in legs, varicose veins bilaterally, RLS, thyroid nodules, JOHNATHAN-no treatment required, diverticulitis with bowel resection, "dizzy spells" in the past. Peptic ulcer disease. 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 She has no other history of STDs. History of Any Multi-Drug Resistant Organisms: None Reported Past Surgical History: Adenoidectomy, Bladder Surgery, Bowel Resection, Joint Replacement, Orthopedic Surgery, Tonsillectomy Additional Past Surgical History / Comment(s): BINA TOTAL KNEE, LT X2. CTR LT HAND; LT ULNAR NERVE REPAIR; LT ANKLE SPUR, MUSCLE SURG; LT SHOULDER RECONSTRUCTION. COLONOSCOPY 2017(2nd), EGD. D&C, BLADDER SUSPENSION W/ MESH., LOW ANTERIOR SIGMOIG RESECTION 03-24-2017. Past Anesthesia/Blood Transfusion Reactions: Previous Problems w/ Anesthesia, Motion Sickness Additional Past Anesthesia/Blood Transfusion Reaction / Comment(s): slow to wake up @times Past Psychological History: Anxiety, Depression Smoking Status: Former smoker Past Alcohol Use History: None Reported Past Drug Use History: None Reported - Past Family History Mother Family Medical History: Cancer, Deep Vein Thrombosis (DVT) Additional Family Medical History / Comment(s): Mother of esophageal cancer at the age of 62 yrs. Father Family Medical History: Congestive Heart Failure (CHF), Coronary Artery Disease (CAD), Deep Vein Thrombosis (DVT) Additional Family Medical History / Comment(s): Father from heart and lung disease at the age of 67yrs. Sister(s) Family Medical History: Cancer Additional Family Medical History / Comment(s): Ovarian cancer. General Exam Limitations: no limitations General appearance: alert, in no apparent distress Head exam: Present: atraumatic, normocephalic, normal inspection Eye exam: Present: normal appearance, PERRL, EOMI Pupils: Present: normal accommodation ENT exam: Present: normal exam, mucous membranes moist, normal external ear exam Neck exam: Present: normal inspection, full ROM Respiratory exam: Present: normal lung sounds bilaterally Cardiovascular Exam: Present: regular rate, normal rhythm, normal heart sounds Extremities exam: Present: full ROM, normal capillary refill, other (+2 ulnar and radial pulses bilaterally.). Absent: normal inspection (Erythema on the palmar aspect of the right hand and distal forearm, 0.5 cm puncture wound on the palmar aspect of the left hand and distal left forearm. Erythema on both regions.) Back exam: Present: normal inspection, full ROM Neurological exam: Present: alert, oriented X3 Psychiatric exam: Present: normal affect, normal mood Skin exam: Present: warm, intact, normal color Course Vital Signs 09/29/18 19:00 Temperature 98.1 F Pulse Rate 91 Respiratory 18 Rate Blood Pressure 110/75 O2 Sat by Pulse 97 Oximetry Medical Decision Making - Medical Decision Making Patient is a 53-year-old male presents emergency Department with a chief complaint of a cat bite. Based on physical examination patient appears to have an infection at the bite sites and bilateral forearms and hands. There is no discharge noted. Patient will be given Augmentin in the ED and discharged with Augmentin. Patient advised to follow with primary care. Strict return parameters were thoroughly discussed patient was understanding and agreeable. Case discussed with physician. Disposition Clinical Impression: Cat bite Disposition: HOME SELF-CARE Condition: Stable Instructions (If sedation given, give patient instructions): Animal Bite (ED) Additional Instructions: Please take prescribed medication as directed. Please follow with primary care. Please return to emergency department if symptoms worsen. Is patient prescribed a controlled substance at d/c from ED?: No Referrals: Dana Akbar MD [Primary Care Provider] - 1-2 days Time of Disposition: 19:46
[2018-09-29 20:07] VITALS: BP 115/76; PULSE 78; TEMP 97.7
== END 2018-09-29 20:07 | disposition home or self-care (01) ==
LOC: EC 18:45
DX: S51.851A Open bite of right forearm, initial encounter (principal); S61.451A Open bite of right hand, initial encounter; S51.832A Puncture wound without foreign body of left forearm, initial encounter; S61.432A Puncture wound without foreign body of left hand, initial encounter; L08.9 Local infection of the skin and subcutaneous tissue, unspecified; E11.40 Type 2 diabetes mellitus with diabetic neuropathy, unspecified; G47.33 Obstructive sleep apnea (adult) (pediatric); F41.9 Anxiety disorder, unspecified; J44.9 Chronic obstructive pulmonary disease, unspecified; F32.9 Major depressive disorder, single episode, unspecified; Z79.4 Long term (current) use of insulin; Z79.899 Other long term (current) drug therapy; Z91.048 Other nonmedicinal substance allergy status; Z87.891 Personal history of nicotine dependence; W55.01XA Bitten by cat, initial encounter
CPT/HCPCS: 99283

== ENCOUNTER 2019-04-12 06:51 | Day surgery (SDC) | payer MEDICARE, OTHER ==
[~2019-04-12 06:51] MED LIST changes: -DEXAMETHASONE SOD PHOSPHATE 10 MG/ML 1 ML VIAL IV ONE; -DEXAMETHASONE SOD PHOSPHATE 4 MG/ML 1 ML VIAL IV ONE; -FAMOTIDINE 20 MG/2 ML VIAL IV ONE; +LIDOCAINE 1% 20 ML VIAL (10MG/ML) FOR IV START INTRADERMA PRN; -MIDAZOLAM 2 MG/2 ML VIAL IV PRN; -ONDANSETRON 4 MG/2 ML VIAL IVP ONE; -SCOPOLAMINE 1.5MG/72HR PATCH TRANSDERM ONE; -ceFAZolin 1,000 MG in DEXTROSE/WATER 1 50ML.BAG IV ONE
[2019-04-12 07:20] VITALS: TEMP 97.7
[2019-04-12 07:20] LABS: Glucose,Whole Blood 307 mg/dL (75-99)
[2019-04-12] MEDS ORDERED: LACTATED RINGERS 1,000 ML IV ONE (07:20)
[2019-04-12] MEDS ORDERED: INSULIN ASPART (NovoLOG) 100 UNIT/ML VIAL SQ ONE (07:24)
[2019-04-12] MEDS ORDERED: ONDANSETRON 4 MG/2 ML VIAL ONE (07:46)
[2019-04-12] MEDS ORDERED: LIDOCAINE 1% INJ 10MG/ML (20 ML MDV) ONE (07:46)
[2019-04-12] MEDS ORDERED: PROPOFOL 10 MG/ML 20 ML VIAL IV ONE (07:46)
--- NOTE | 2019-04-12 07:50 | P.GSHP ---
History of Present Illness H&P Date: 04/12/19 Chief Complaint: GERD, constipation This a 54-year-old female presents today for EGD and colonoscopy. Patient had GERD and constipation issues Past Medical History Past Medical History: Asthma, COPD, Diabetes Mellitus, GERD/Reflux, Os teoarthritis (OA), Pneumonia, Sleep Apnea/CPAP/BIPAP, Thyroid Disorder Additional Past Medical History / Comment(s): DOES NOT USE CPAP. DAMAGED VOCAL CORDS (POLYPS). IDDM type II, bilateral feet neuropathy, hiatal hernia, superficial blood clots in legs, varicose veins bilaterally, RLS, thyroid nodules, JOHNATHAN-no treatment required, diverticulitis with bowel resection, "dizzy spells" in the past. Peptic ulcer disease. 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 She has no other history of STDs. History of Any Multi-Drug Resistant Organisms: None Reported Past Surgical History: Adenoidectomy, Bladder Surgery, Bowel Resection, Joint Replacement, Orthopedic Surgery, Tonsillectomy Additional Past Surgical History / Comment(s): BINA TOTAL KNEE, LT X2. CTR LT HAND; LT ULNAR NERVE REPAIR. VOCAL CORD POLYPS REMOVED. LT ANKLE SPUR, MUSCLE SURG; LT SHOULDER RECONSTRUCTION. COLONOSCOPY 2017(2nd), EGD. D&C, BLADDER SUSPENSION W/ MESH., LOW ANTERIOR SIGMOIG RESECTION 03-24-2017. Past Anesthesia/Blood Transfusion Reactions: Previous Problems w/ Anesthesia, Motion Sickness Additional Past Anesthesia/Blood Transfusion Reaction / Comment(s): Slow to wake up @times Past Psychological History: Anxiety, Depression Additional Psychological History / Comment(s): Pt resides alone. She uses a cane or walker at times. She drives. Smoking Status: Former smoker Past Alcohol Use History: None Reported Additional Past Alcohol Use History / Comment(s): Pt started smoking in 1972 and a pack of cigarettes will last 3 days. Quit drinking alcohol in 30s. Past Drug Use History: None Reported - Past Family History Mother Family Medical History: Cancer, Deep Vein Thrombosis (DVT) Additional Family Medical History / Comment(s): Mother of esophageal cancer at the age of 62 yrs. Father Family Medical History: Congestive Heart Failure (CHF), Coronary Artery Disease (CAD), Deep Vein Thrombosis (DVT) Additional Family Medical History / Comment(s): Father from heart and lung disease at the age of 67yrs. Sister(s) Family Medical History: Cancer Additional Family Medical History / Comment(s): Ovarian cancer. Medications and Allergies Home Medications Medication Instructions Recorded Confirmed Type Insulin Glargine [Lantus] 100 unit SQ HS 05/19/14 04/12/19 History INSULIN ASPART (NovoLOG) [NovoLOG See Protocol SQ AC-TID 12/24/16 04/12/19 History (formulary)] Ibuprofen [Motrin] 800 mg PO TID PRN 04/19/18 04/07/19 History ALPRAZolam [Xanax] 1 mg PO HS PRN 09/29/18 04/12/19 History Albuterol Inhaler [Ventolin Hfa 2 puff INHALATION RT-Q6H PRN 09/29/18 04/07/19 History Inhaler] Cyclobenzaprine [Flexeril] 10 mg PO DAILY PRN 09/29/18 04/12/19 History Allergies Allergy/AdvReac Type Severity Reaction Status Date / Time nickel [Nickel] AdvReac PAIN FROM Verified 04/12/19 07:10 KNEE IMPLANT Surgical - Exam Vital Signs Temp Pulse Resp BP Pulse Ox 97.7 F 95 17 144/73 95 04/12/19 07:19 04/12/19 07:19 04/12/19 07:19 04/12/19 07:19 04/12/19 07:19 - General well developed, well nourished, no distress - Eyes PERRL - ENT normal pinna - Neck no masses - Respiratory normal expansion - Cardiovascular Rhythm: regular - Abdomen Abdomen: soft, non tender Results - Labs Abnormal Lab Results - Last 24 Hours (Table) 04/12/19 Range/Units 07:16 POC Glucose (mg/dL) 307 H (75-99) mg/dL Assessment and Plan Assessment: GERD, constipation. We'll perform EGD and colonoscopy.
--- NOTE | 2019-04-12 08:16 | P.OP ---
Date of Procedure: 04/12/19 Preoperative Diagnosis: GERD Constipation Postoperative Diagnosis: Antral gastritis Diverticulosis Procedure(s) Performed: EGD Colonoscopy Anesthesia: MAC Surgeon: David Gonzalez Pathology: other (Antrum) Condition: stable Description of Procedure: The patient's placed on the endoscopy table in the lateral position. She rece ived IV sedation. The gastroscope placed oropharynx passed in the esophagus and into the stomach. Scope was then placed through the pylorus. The first and second portion of the duodenum appeared normal. Scope summer back the antrum this . A biopsies performed. Scope was unretroflexed and remainder of the stomach appeared normal. There is no significant hiatal hernia. The GE junction was at 40 cm. The distal esophagus appeared normal. The proximal esophagus appeared normal. Scope Patient. Next digital rectal exam was performed which revealed a few external hemorrhoids. Flexible colonoscope was then placed patient anus and passed throughout the entire colon. The ileocecal valve was visualized. Cecum, ascending and transverse colon appeared normal. The descending and sigmoid colon there is moderate diverticular changes. There is no evidence of diverticulitis. Scope was then brought back the rectum and this appeared normal. The scope was withdrawn for patient.
[2019-04-12 08:21] VITALS: RESP 18
[2019-04-12 08:42] LABS: Glucose,Whole Blood 279 mg/dL (75-99)
[2019-04-12 09:04] VITALS: BP 117/76; PULSE 98
== END 2019-04-12 09:12 | disposition home or self-care (01) ==
LOC: ORWHC2ENDO 06:51
PROVIDERS: ATTEND Surgery
DX: K29.50 Unspecified chronic gastritis without bleeding (principal); K21.9 Gastro-esophageal reflux disease without esophagitis; K57.30 Diverticulosis of large intestine without perforation or abscess without bleeding; K64.4 Residual hemorrhoidal skin tags; J44.9 Chronic obstructive pulmonary disease, unspecified; M19.90 Unspecified osteoarthritis, unspecified site; J38.3 Other diseases of vocal cords; E11.42 Type 2 diabetes mellitus with diabetic polyneuropathy; K44.9 Diaphragmatic hernia without obstruction or gangrene; I83.93 Asymptomatic varicose veins of bilateral lower extremities; G25.81 Restless legs syndrome; E04.1 Nontoxic single thyroid nodule; G47.33 Obstructive sleep apnea (adult) (pediatric); F41.9 Anxiety disorder, unspecified; F32.9 Major depressive disorder, single episode, unspecified; F17.210 Nicotine dependence, cigarettes, uncomplicated; Z87.01 Personal history of pneumonia (recurrent); Z86.718 Personal history of other venous thrombosis and embolism; Z87.19 Personal history of other diseases of the digestive system; Z90.49 Acquired absence of other specified parts of digestive tract; Z87.11 Personal history of peptic ulcer disease; Z86.19 Personal history of other infectious and parasitic diseases; Z90.89 Acquired absence of other organs; Z98.890 Other specified postprocedural states; Z96.653 Presence of artificial knee joint, bilateral; Z86.69 Personal history of other diseases of the nervous system and sense organs; Z91.89 Other specified personal risk factors, not elsewhere classified; Z87.898 Personal history of other specified conditions; Z79.4 Long term (current) use of insulin; Z79.1 Long term (current) use of non-steroidal anti-inflammatories (NSAID); Z79.899 Other long term (current) drug therapy; Z91.09 Other allergy status, other than to drugs and biological substances; Z98.51 Tubal ligation status; Z87.81 Personal history of (healed) traumatic fracture; Z97.2 Presence of dental prosthetic device (complete) (partial); Z80.0 Family history of malignant neoplasm of digestive organs; Z82.49 Family history of ischemic heart disease and other diseases of the circulatory system; Z80.41 Family history of malignant neoplasm of ovary
CPT/HCPCS: 88305; 45378; 43239; J2405; J2001; J2704

== ENCOUNTER → 2019-11-24 | Outpatient (CLI) | payer MEDICARE, OTHER ==
[2019-11-24 16:28] LABS: T4, Free (Free Thyroxine) 1.41 ng/dL (0.78-2.19)
--- NOTE | 2019-11-24 17:14 | US ---
EXAMINATION TYPE: US thyroid st tissue head/neck DATE OF EXAM: 11/24/2019 COMPARISON: NONE CLINICAL HISTORY: E04.1 THYROID NODULE. GLAND SIZE: Right Lobe: 5.4 x 2.6 x 2.3 cm Overall Parenchyma: heterogenous Left Lobe: 5.2 x 2.3 x 2.2 cm Overall Parenchyma: homogeneous Isthmus Thickness: 0.7 cm NODULES RIGHT: # of nodules measured on right: 1 1. 2.0 X 1.4 x 1.8 cm hypoechoic mixed nodule at the upper pole with well-defined margins; . This nodule is wider than tall and shows intranodular vascularity. Prior size: no prior Multiple other subcentimeter nodules seen, only dominant nodule measures LEFT: # of nodules measured on left: 2 1. 1.0 X 0.8 x 0.8 cm hypoechoic mixed nodule at the mid pole with well-defined margins. This nodu le is wider than tall and shows intranodular vascularity. Prior size: no prior 2. 1.4 X 1.3 x 1.2 cm isoechoic solid nodule at the lower pole with well-defined margins. This nodu le is wider than tall and shows no intranodular vascularity. Prior size: no prior ISTHMUS: # of nodules measured in the isthmus: 0 Bilateral neck scanned, no evidence of lymphadenopathy. Nodules as described. IMPRESSION: 1. Bilateral thyroid nodules greater than 1 cm.
== END | disposition home or self-care (01) ==
LOC: RADUSWWP 14:07
PROVIDERS: ATTEND Otolaryngology
DX: E04.2 Nontoxic multinodular goiter (principal); R53.83 Other fatigue
CPT/HCPCS: 76536; 84439; 84443

== ENCOUNTER 2019-12-05 07:57 | Day surgery (SDC) | payer MEDICARE, OTHER ==
[2019-12-05 08:40] VITALS: RESP 16; TEMP 98.1
[2019-12-05 10:14] VITALS: BP 115/71; PULSE 91
--- NOTE | 2019-12-05 11:42 | US ---
ULTRASOUND GUIDED FNA THYROID BIOPSY: CLINICAL HISTORY: Request for 1 right-sided thyroid nodule and 2 left-sided thyroid nodules for biops y FINDINGS: The procedure was explained to the patient. The risks, complications, benefits and alternatives were discussed and any questions were answered. Informed consent was obtained. Patient was placed supin e on the ultrasound table and prepped and draped in the usual sterile fashion. Utilizing a 25 gauge needle, five passes were made into each of the requested thyroid nodules (1 right thyroid nodule, 2 l eft-sided thyroid nodules). Patient was stable throughout the procedure. Pathology is pending. All elements of maximal barrier technique were utilized. IMPRESSION: 1. Successful ultrasound guided FNA thyroid biopsy.
== END 2019-12-05 10:12 | disposition home or self-care (01) ==
LOC: RADPROMAIN 07:57
PROVIDERS: ATTEND Otolaryngology
DX: E04.2 Nontoxic multinodular goiter (principal)
CPT/HCPCS: 10005; 10006; 88173; 88305

== ENCOUNTER 2020-09-23 08:24 | Observation (INO) | payer MEDICARE, OTHER ==
[2020-09-23] MEDS ORDERED: ONDANSETRON 4 MG/2 ML VIAL IVP STA (08:35)
[2020-09-23] MEDS ORDERED: SODIUM CHLORIDE 0.9% 1,000 ML IV STA ×3 (08:35→09:58)
--- NOTE | 2020-09-23 08:41 | ED ---
Nausea/Vomiting/Diarrhea HPI - General Chief complaint: Nausea/Vomiting/Diarrhea Stated complaint: Nausea/Vomiting Time Seen by Provider: 09/23/20 08:24 Source: patient, EMS Mode of arrival: EMS - History of Present Illness Initial comments: This is a 55-year-old female who is a smoker and COPD also a diabetic who states she hasn't been feeling well for the past 3 or 4 days with some weakness and feeling tired all time but about 2 hours after eating food last night started de veloping nausea vomiting and later a large amount of diarrhea. She also states was completely she had intermittent right lower quadrant sharp abdominal pain is not at this time she has some chills no fevers no sweats she has a smoker's cough she states she states pain was was 7/10 severity when it did occur. She has some generalized nonspecific abdominal pain at this time. 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 MD complaint: nausea, vomiting, diarrhea, abdominal pain - Related Data Home Medications Medication Instructions Recorded Confirmed Insulin Glargine [Lantus] 50 - 70 unit SQ HS 05/19/14 09/23/20 INSULIN ASPART (NovoLOG) [NovoLOG See Protocol SQ AC-TID 12/24/16 09/23/20 (formulary)] Ibuprofen [Motrin] 800 mg PO TID PRN 04/19/18 09/23/20 Albuterol Inhaler (Mhu) [Ventolin 2 puff INHALATION RT-Q6H PRN 09/29/18 09/23/20 Hfa Inhaler] Allergies Allergy/AdvReac Type Severity Reaction Status Date / Time nickel [Nickel] AdvReac PAIN FROM Verified 09/23/20 09:37 KNEE IMPLANT Review of Systems ROS Statement: Those systems with pertinent positive or pertinent negative responses have been documented in the HPI. ROS Other: All systems not noted in ROS Statement are negative. Past Medical History Past Medical History: Asthma, COPD, Diabetes Mellitus, GERD/Reflux, Osteoarthritis (OA), Pneumonia, Sleep Apnea/CPAP/BIPAP, Thyroid Disorder Additional Past Medical History / Comment(s): DOES NOT USE CPAP. DAMAGED VOCAL CORDS (POLYPS). IDDM type II, bilateral feet neuropathy, hiatal hernia, superfi cial blood clots in legs, varicose veins bilaterally, RLS, thyroid nodules, JOHNATHAN- no treatment required, diverticulitis with bowel resection, "dizzy spells" in the past. Peptic ulcer disease. 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 She has no other history of STDs. History of Any Multi-Drug Resistant Organisms: None Reported Past Surgical History: Adenoidectomy, Bladder Surgery, Bowel Resection, Joint Replacement, Orthopedic Surgery, Tonsillectomy Additional Past Surgical History / Comment(s): BINA TOTAL KNEE, LT X2. CTR LT HAND; LT ULNAR NERVE REPAIR. VOCAL CORD POLYPS REMOVED. LT ANKLE SPUR, MUSCLE SURG; LT SHOULDER RECONSTRUCTION. COLONOSCOPY 2017(2nd), EGD. D&C, BLADDER SUSPENSION W/ MESH., LOW ANTERIOR SIGMOIG RESECTION 03-24-2017. Past Anesthesia/Blood Transfusion Reactions: Previous Problems w/ Anesthesia, Motion Sickness Additional Past Anesthesia/Blood Transfusion Reaction / Comment(s): Slow to wake up @times Past Psychological History: Anxiety, Depression Smoking Status: Current every day smoker Past Alcohol Use History: None Reported Past Drug Use History: None Reported - Past Family History Mother Family Medical History: Cancer, Deep Vein Thrombosis (DVT) Additional Family Medical History / Comment(s): Mother of esophageal cancer at the age of 62 yrs. Father Family Medical History: Congestive Heart Failure (CHF), Coronary Artery Disease (CAD), Deep Vein Thrombosis (DVT) Additional Family Medical History / Comment(s): Father from heart and lung disease at the age of 67yrs. Sister(s) Family Medical History: Cancer Additional Family Medical History / Comment(s): Ovarian cancer. General Exam - General Exam Comments Initial Comments: This is a well-developed well-nourished awake alert oriented 3 female General appearance: alert, anxious Head exam: Present: atraumatic, normocephalic, normal inspection Eye exam: Present: normal appearance, PERRL, EOMI. Absent: scleral icterus, conjunctival injection, periorbital swelling ENT exam: Present: mucous membranes dry, other (The patient is edentulous) Neck exam: Present: normal inspection. Absent: tenderness, meningismus, lymphadenopathy Respiratory exam: Present: normal lung sounds bilaterally. Absent: respiratory distress, wheezes, rales, rhonchi, stridor Cardiovascular Exam: Present: normal rhythm, tachycardia, normal heart sounds. Absent: systolic murmur, diastolic murmur, rubs, gallop, clicks GI/Abdominal exam: Present: soft, tenderness (Mild generalized tenderness no guarding rebound masses or bruits), normal bowel sounds. Absent: distended, guarding, rebound, rigid Rectal exam: Present: deferred Extremities exam: Present: normal inspection, full ROM, normal capillary refill. Absent: tenderness, pedal edema, joint swelling, calf tenderness Back exam: Present: normal inspection Neurological exam: Present: alert, oriented X3, CN II-XII intact Psychiatric exam: Present: normal affect, normal mood Skin exam: Present: warm, dry, intact, normal color. Absent: rash Course Vital Signs 09/23/20 09/23/20 09/23/20 08:25 09:57 12:17 Temperature 97.9 F 98.4 F Pulse Rate 114 H 106 H 105 H Respiratory 18 18 16 Rate Blood Pressure 125/78 144/71 121/73 O2 Sat by Pulse 95 95 96 Oximetry Medical Decision Making - Medical Decision Making I did reevaluate patient several occasions she still feeling very nauseated just does not feel well. The blood sugar is improved. Patient will be admitted for IV hydration and further evaluation. I did discuss case with Dr. graham - Lab Data Result diagrams: 09/23/20 08:54 09/23/20 08:54 Lab Results 09/23/20 09/23/20 09/23/20 Range/Units 08:00 08:54 08:54 WBC 18.5 H (3.8-10.6) k/uL RBC 5.28 (3.80-5.40) m/uL Hgb 16.0 (11.4-16.0) gm/dL Hct 50.2 H (34.0-46.0) % MCV 95.1 (80.0-100.0) fL MCH 30.4 (25.0-35.0) pg MCHC 32.0 (31.0-37.0) g/dL RDW 12.9 (11.5-15.5) % Plt Count 345 (150-450) k/uL MPV 7.7 Neutrophils % 91 % Lymphocytes % 5 % Monocytes % 3 % Eosinophils % 1 % Basophils % 0 % Neutrophils # 16.8 H (1.3-7.7) k/uL Lymphocytes # 0.9 L (1.0-4.8) k/uL Monocytes # 0.6 (0-1.0) k/uL Eosinophils # 0.1 (0-0.7) k/uL Basophils # 0.1 (0-0.2) k/uL Sodium (137-145) mmol/L Potassium (3.5-5.1) mmol/L Chloride (98-107) mmol/L Carbon Dioxide (22-30) mmol/L Anion Gap mmol/L BUN (7-17) mg/dL Creatinine (0.52-1.04) mg/dL Est GFR (CKD-EPI)AfAm (>60 ml/min/1.73 sqM) Est GFR (CKD-EPI)NonAf (>60 ml/min/1.73 sqM) Glucose (74-99) mg/dL POC Glucose (mg/dL) (75-99) mg/dL POC Glu Cadd Drafter ID Plasma Lactic Acid Thuan (0.7-2.0) mmol/L Calcium (8.4-10.2) mg/dL Magnesium (1.6-2.3) mg/dL Total Bilirubin (0.2-1.3) mg/dL AST (14-36) U/L ALT (4-34) U/L Alkaline Phosphatase (38-126) U/L Total Protein (6.3-8.2) g/dL Albumin (3.5-5.0) g/dL Amylase (30-110) U/L Lipase (23-300) U/L Urine Color Light Yellow Urine Appearance Clear (Clear) Urine pH 5.5 (5.0-8.0) Ur Specific [place] 1.040 H (1.001-1.035) Urine Protein Negative (Negative) Urine Glucose (UA) 4+ H (Negative) Urine Ketones 1+ H (Negative) Urine Blood Negative (Negative) Urine Nitrite Negative (Negative) Urine Bilirubin Negative (Negative) Urine Urobilinogen <2.0 (<2.0) mg/dL Ur Leukocyte Esterase Negative (Negative) Acetone, Qual (Negative) Coronavirus (PCR) Not Detected (Not Detectd) 09/23/20 09/23/20 09/23/20 Range/Units 08:54 08:54 09:16 WBC (3.8-10.6) k/uL RBC (3.80-5.40) m/uL Hgb (11.4-16.0) gm/dL Hct (34.0-46.0) % MCV (80.0-100.0) fL MCH (25.0-35.0) pg MCHC (31.0-37.0) g/dL RDW (11.5-15.5) % Plt Count (150-450) k/uL MPV Neutrophils % % Lymphocytes % % Monocytes % % Eosinophils % % Basophils % % Neutrophils # (1.3-7.7) k/uL Lymphocytes # (1.0-4.8) k/uL Monocytes # (0-1.0) k/uL Eosinophils # (0-0.7) k/uL Basophils # (0-0.2) k/uL Sodium 137 (137-145) mmol/L Potassium 4.7 (3.5-5.1) mmol/L Chloride 100 (98-107) mmol/L Carbon Dioxide 26 (22-30) mmol/L Anion Gap 11 mmol/L BUN 19 H (7-17) mg/dL Creatinine 0.45 L (0.52-1.04) mg/dL Est GFR (CKD-EPI)AfAm >90 (>60 ml/min/1.73 sqM) Est GFR (CKD-EPI)NonAf >90 (>60 ml/min/1.73 sqM) Glucose 500 H (74-99) mg/dL POC Glucose (mg/dL) 428 H (75-99) mg/dL POC Glu Cadd Drafter ID Svacha, II, Florentino Plasma Lactic Acid Thuan 1.7 (0.7-2.0) mmol/L Calcium 10.1 (8.4-10.2) mg/dL Magnesium 1.6 (1.6-2.3) mg/dL Total Bilirubin 0.4 (0.2-1.3) mg/dL AST 20 (14-36) U/L ALT 19 (4-34) U/L Alkaline Phosphatase 137 H (38-126) U/L Total Protein 7.4 (6.3-8.2) g/dL Albumin 4.4 (3.5-5.0) g/dL Amylase 46 (30-110) U/L Lipase 45 (23-300) U/L Urine Color Urine Appearance (Clear) Urine pH (5.0-8.0) Ur Specific [place] (1.001-1.035) Urine Protein (Negative) Urine Glucose (UA) (Negative) Urine Ketones (Negative) Urine Blood (Negative) Urine Nitrite (Negative) Urine Bilirubin (Negative) Urine Urobilinogen (<2.0) mg/dL Ur Leukocyte Esterase (Negative) Acetone, Qual Negative (Negative) Coronavirus (PCR) (Not Detectd) 09/23/20 Range/Units 12:46 WBC (3.8-10.6) k/uL RBC (3.80-5.40) m/uL Hgb (11.4-16.0) gm/dL Hct (34.0-46.0) % MCV (80.0-100.0) fL MCH (25.0-35.0) pg MCHC (31.0-37.0) g/dL RDW (11.5-15.5) % Plt Count (150-450) k/uL MPV Neutrophils % % Lymphocytes % % Monocytes % % Eosinophils % % Basophils % % Neutrophils # (1.3-7.7) k/uL Lymphocytes # (1.0-4.8) k/uL Monocytes # (0-1.0) k/uL Eosinophils # (0-0.7) k/uL Basophils # (0-0.2) k/uL Sodium (137-145) mmol/L Potassium (3.5-5.1) mmol/L Chloride (98-107) mmol/L Carbon Dioxide (22-30) mmol/L Anion Gap mmol/L BUN (7-17) mg/dL Creatinine (0.52-1.04) mg/dL Est GFR (CKD-EPI)AfAm (>60 ml/min/1.73 sqM) Est GFR (CKD-EPI)NonAf (>60 ml/min/1.73 sqM) Glucose (74-99) mg/dL POC Glucose (mg/dL) 262 H (75-99) mg/dL POC Glu Cadd Drafter ID [employer]Peg Plasma Lactic Acid Thuan (0.7-2.0) mmol/L Calcium (8.4-10.2) mg/dL Magnesium (1.6-2.3) mg/dL Total Bilirubin (0.2-1.3) mg/dL AST (14-36) U/L ALT (4-34) U/L Alkaline Phosphatase (38-126) U/L Total Protein (6.3-8.2) g/dL Albumin (3.5-5.0) g/dL Amylase (30-110) U/L Lipase (23-300) U/L Urine Color Urine Appearance (Clear) Urine pH (5.0-8.0) Ur Specific [place] (1.001-1.035) Urine Protein (Negative) Urine Glucose (UA) (Negative) Urine Ketones (Negative) Urine Blood (Negative) Urine Nitrite (Negative) Urine Bilirubin (Negative) Urine Urobilinogen (<2.0) mg/dL Ur Leukocyte Esterase (Negative) Acetone, Qual (Negative) Coronavirus (PCR) (Not Detectd) - EKG Data -: EKG Interpreted by Me EKG shows normal: sinus rhythm EKG Comments: Tachycardia rate 108. Interval 136 QRS duration 84 QT since QTC 352/461 possible left atrial enlargement no acute ST-T wave changes - Radiology Data Radiology results: report reviewed (Imaging reviewed no acute findings.), image reviewed Disposition Clinical Impression: Dehydration, Gastroenteritis, Uncontrolled diabetes mellitus Disposition: ADMITTED IP TO THIS [facility] Condition: Fair Referrals: Dana Akbar MD [Primary Care Provider] - 1-2 days
[2020-09-23 09:04] LABS: Basophils # (A) 0.1 k/uL (0-0.2); Basophils % (A) 0 %; Eosinophils # (A) 0.1 k/uL (0-0.7); Eosinophils % (A) 1 %; HCT 50.2 % (34.0-46.0); Lymphocytes # (A) 0.9 k/uL (1.0-4.8); Lymphocytes % (A) 5 %; MCH 30.4 pg (25.0-35.0); MCV 95.1 fL (80.0-100.0); Mean Platelet Volume 7.7; Monocytes # (A) 0.6 k/uL (0-1.0); Monocytes % (A) 3 %; Neutrophils # (A) 16.8 k/uL (1.3-7.7); Neutrophils % (A) 91 %; Platelet Count 345 k/uL (150-450); RBC 5.28 m/uL (3.80-5.40); RDW 12.9 % (11.5-15.5); WBC 18.5 k/uL (3.8-10.6)
[2020-09-23 09:18] LABS: Glucose,Whole Blood 428 mg/dL (75-99)
--- NOTE | 2020-09-23 09:19 | XR ---
EXAMINATION TYPE: XR chest 2V DATE OF EXAM: 09/23/2020 COMPARISON: 03/24/2017 HISTORY: 55-year-old female with pain TECHNIQUE: PA and lateral views FINDINGS: Heart normal size. Aorta and pulmonary vasculature within normal limits. Some strandy atelectasis in the lower lungs. Otherwise, no consolidation or pleural effusion. Shortening of the distal left clavi aston is unchanged, probably postsurgical. Suture anchor in the left humeral head from prior cuff repai r. IMPRESSION: Chronic changes without acute cardiopulmonary process.
--- NOTE | 2020-09-23 09:20 | XR ---
EXAMINATION TYPE: XR KUB DATE OF EXAM: 09/23/2020 Comparison: None Clinical History: 55-year-old female pain Findings: No evidence for free intraperitoneal air. No dilated small bowel or air-fluid levels. Some mild scattered colonic air is present. No significan t stool burden. No suspicious calcifications are seen. Impression: Nonspecific, nonobstructive bowel gas pattern. No significant stool burden. No free air.
[2020-09-23 09:21] LABS: ALT 19 U/L (4-34); AST 20 U/L (14-36); African American GFR (CKD) >90 (>60 ml/min/1.73 sqM); Albumin 4.4 g/dL (3.5-5.0); Alkaline Phosphatase 137 U/L (38-126); Amylase 46 U/L (30-110); Anion Gap 11 mmol/L; Blood Urea Nitrogen 19 mg/dL (7-17); Calcium 10.1 mg/dL (8.4-10.2); Carbon Dioxide 26 mmol/L (22-30); Chloride 100 mmol/L (98-107); Glucose 500 mg/dL (74-99); Lipase 45 U/L (23-300); Magnesium 1.6 mg/dL (1.6-2.3); Non-African American GFR(CKD) >90 (>60 ml/min/1.73 sqM); Potassium 4.7 mmol/L (3.5-5.1); Sodium 137 mmol/L (137-145); Total Bilirubin 0.4 mg/dL (0.2-1.3); Total Protein 7.4 g/dL (6.3-8.2)
[2020-09-23] MEDS ORDERED: INSULIN REGULAR 100 UNIT/ML VIAL (IV) IV ONE (09:58)
[2020-09-23 10:26] LABS: Appearance,Urine Clear (Clear); Bilirubin,Urine Negative (Negative); Blood,Urine Negative (Negative); Color,Urine Light Yellow; Glucose,Urine (UA) 4+ (Negative); Ketones,Urine 1+ (Negative); Leukocyte Esterase,Urine Negative (Negative); Nitrite,Urine Negative (Negative); PH, Urine 5.5 (5.0-8.0); Protein,Urine Negative (Negative); Urobilinogen,Urine <2.0 mg/dL (<2.0)
--- NOTE | 2020-09-23 12:47 | CT ---
EXAMINATION TYPE: CT abdomen pelvis w con DATE OF EXAM: 09/23/2020 COMPARISON: None HISTORY: Nausea, vomiting and diarrhea. CT DLP: 1718.2 mGycm CONTRAST: CT scan of the abdomen and pelvis is performed without Oral Contrast and with IV Contrast, patient in jected with 100 mL of Isovue 300. FINDINGS: LUNG BASES-: No visible nodule. No infiltrate. LIVER/GB: No calcified gallstones. No space occupying hepatic lesion. Biliary tree is of normal ca liber. PANCREAS: No inflammation. No distinct mass. SPLEEN: No splenic enlargement. No lesion seen. ADRENALS: No nodule. No thickening. KIDNEYS/BLADDER: No hydronephrosis. No nephrolithiasis. No distinct renal mass. Urinary bladder g rossly unremarkable. BOWEL: Normal appendix. Normal bowel caliber. No inflammation. GENITAL ORGANS: No gross abnormality. LYMPH NODES: No greater than 1cm abdominal or pelvic lymph nodes are appreciated. AORTA: No significant abnormality. OSSEOUS STRUCTURES: No significant abnormality is seen. OTHER: No significant additional abnormality is seen. IMPRESSION: 1. No significant abnormality to account for the patient's symptoms.
[2020-09-23 12:48] LABS: Glucose,Whole Blood 262 mg/dL (75-99)
[2020-09-23] MEDS ORDERED: NALOXONE 0.4 MG/ML 1 ML VIAL IV PRN (14:07)
[2020-09-23] MEDS ORDERED: ONDANSETRON 4 MG/2 ML VIAL IVP PRN (14:07)
[2020-09-23] MEDS ORDERED: ALBUTEROL NEBULIZED 2.5 MG/3 ML INHALATION PRN (14:08)
[2020-09-23] MEDS ORDERED: KETOROLAC 15 MG/ML 1 ML VIAL IVP STA (14:09)
[2020-09-23 17:31] LABS: Glucose,Whole Blood 187 mg/dL (75-99)
[2020-09-23] MEDS: INSULIN ASPART (NovoLOG) 100 UNIT/ML VIAL SQ SCH ×2 (17:40→21:59)
[2020-09-23] MEDS: KETOROLAC 15 MG/ML 1 ML VIAL IVP SCH (18:07)
[2020-09-23 20:47] LABS: Glucose,Whole Blood 257 mg/dL (75-99)
[2020-09-24] MEDS: KETOROLAC 15 MG/ML 1 ML VIAL IVP SCH (00:15)
[2020-09-24] MEDS ORDERED: INSULIN DETEMIR (LEVEMIR) 100 UNIT/ML SYR SQ SCH (01:11)
--- NOTE | 2020-09-24 01:14 | P.HPIM ---
History of Present Illness H&P Date: 09/23/20 Chief Complaint: Nausea and vomiting Patient is a 55-year-old female with a known history of diabetes type 2, asthma/COPD, obstructive sleep apnea, morbid obesity, hypothyroidism, diabetic peripheral neuropathy, RLS, anxiety/depression and currently with a smoker presents to ER with complaints of nausea vomiting and diarrhea for the past 3-4 days. 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 None of her other family members didn't get sick. 2 hours after eating food she started having nausea and vomiting a large amount of diarrhea. She felt very weak and tired for the past 2 days. Patient was also complaining of intermittent right lower quadrant sharp abdominal pain which has been resolved. No complaints of fever or chills. No cough or sputum production. Pain is at 7 out of 10 in severity when she had abdominal pain. Patient was having generalized weakness and nausea vomiting is not improving which made her to come to ER. 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 Denied any chest pain or shortness of breath. Denied any recent illnesses. Next and chest x-ray showed chronic changes without acute cardio pulmonary process. CT of the abdomen and pelvis showed no significant abnormality to account for the patient's symptoms. EKG showed sinus tachycardia Laboratory data showed WBC 18.5 hemoglobin 16.0 and platelets 345 BUN 19 and creatinine 0.45 neck sent blood sugar is 400 UA is negative for infection. Acetone negative and farmer virus PCR not detected. Review of Systems Constitutional: Patient denies any fever or chills . Generalized weakness Abdomen: Patient does have nausea vomiting and diarrhea and abdominal pain.. Cardiovascular: Patient denies any chest pain or short of breath no palpitations. Respiratory: patient denied any cough is from production. No shortness of breath Neurologic: Patient denied any numbness or tingling headache. Musculoskeletal: Patient denies any complaints of joint swelling or deformity. Skin: Negative Psychiatric: Negative Endocrine: No heat or cold intolerance. No recent weight gain. Genitourinary: No dysuria or hematuria. All other 14 point ROS negative except the above Past Medical History Past Medical History: Asthma, COPD, Diabetes Mellitus, GERD/Reflux, Osteoarthritis (OA), Pneumonia, Sleep Apnea/CPAP/BIPAP, Thyroid Disorder Additional Past Medical History / Comment(s): DOES NOT USE CPAP. DAMAGED VOCAL CORDS (POLYPS). IDDM type II, bilateral feet neuropathy, hiatal hernia, superficial blood clots in legs, varicose veins bilaterally, RLS, thyroid nodules, JOHNATHAN-no treatment required, diverticulitis with bowel resection, "dizzy spells" in the past. Peptic ulcer disease. 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 She has no other history of STDs. History of Any Multi-Drug Resistant Organisms: None Reported Past Surgical History: Adenoidectomy, Bladder Surgery, Bowel Resection, Joint Replacement, Orthopedic Surgery, Tonsillectomy Additional Past Surgical History / Comment(s): BINA TOTAL KNEE, LT X2. CTR LT HAND; LT ULNAR NERVE REPAIR. VOCAL CORD POLYPS REMOVED. LT ANKLE SPUR, MUSCLE SURG; LT SHOULDER RECONSTRUCTION. COLONOSCOPY 2017(2nd), EGD. D&C, BLADDER SUSPENSION W/ MESH., LOW ANTERIOR SIGMOIG RESECTION 03-24-2017. Past Anesthesia/Blood Transfusion Reactions: Previous Problems w/ Anesthesia, Motion Sickness Additional Past Anesthesia/Blood Transfusion Reaction / Comment(s): Slow to wake up @times Past Psychological History: Anxiety, Depression Smoking Status: Current every day smoker Past Alcohol Use History: None Reported Past Drug Use History: None Reported - Past Family History Mother Family Medical History: Cancer, Deep Vein Thrombosis (DVT) Additional Family Medical History / Comment(s): Mother of esophageal cancer at the age of 62 yrs. Father Family Medical History: Congestive Heart Failure (CHF), Coronary Artery Disease (CAD), Deep Vein Thrombosis (DVT) Additional Family Medical History / Comment(s): Father from heart and lung disease at the age of 67yrs. Sister(s) Family Medical History: Cancer Additional Family Medical History / Comment(s): Ovarian cancer. Medications and Allergies Home Medications Medication Instructions Recorded Confirmed Type Insulin Glargine [Lantus] 50 - 70 unit SQ HS 05/19/14 09/23/20 History INSULIN ASPART (NovoLOG) [NovoLOG See Protocol SQ AC-TID 12/24/16 09/23/20 History (formulary)] Ibuprofen [Motrin] 800 mg PO TID PRN 04/19/18 09/23/20 History Albuterol Inhaler (Mhu) [Ventolin 2 puff INHALATION RT-Q6H PRN 09/29/18 09/23/20 History Hfa Inhaler] Allergies Allergy/AdvReac Type Severity Reaction Status Date / Time nickel [Nickel] AdvReac PAIN FROM Verified 09/23/20 09:37 KNEE IMPLANT Physical Exam Vitals: Vital Signs Temp Pulse Resp BP Pulse Ox 09/23/20 14:41 99.8 F H 104 H 18 121/73 97 09/23/20 12:17 105 H 16 121/73 96 09/23/20 09:57 98.4 F 106 H 18 144/71 95 09/23/20 08:25 97.9 F 114 H 18 125/78 95 Intake and Output 09/23/20 09/23/20 09/23/20 06:59 14:59 22:59 Other: Weight 104.326 kg PHYSICAL EXAMINATION: Patient is lying in the bed comfortably, no acute distress, awake alert and oriented. Mildly obese.. HEENT: Normocephalic. Neck is supple. Pupils reactive. Nostrils clear. Oral cavity is moist. Neck reveals no JVD, carotid bruits, or thyromegaly. CHEST EXAMINATION: Trachea is central. Symmetrical expansion. Bibasilar dim inished sounds. Lung coulter clear to auscultation and percussion. CARDIAC: Normal S1, S2 with no gallops. No murmurs ABDOMEN: Soft. Bowel sounds normal. No organomegaly. No abdominal bruits. Extremities: reveal no edema. No clubbing or cyanosis Neurologically awake, alert, oriented x3 with well-coordinated movements. No focal deficits noted Skin: No rash or skin lesions. Psychiatric: Coperative. Nonsuicidal Musculoskeletal: No joint swelling or deformity. Normal range of motion. Results CBC & Chem 7: 09/24/20 06:16 09/24/20 06:16 Labs: Abnormal Lab Results - Last 24 Hours (Table) 09/23/20 09/23/20 09/23/20 Range/Units 08:54 08:54 08:54 WBC 18.5 H (3.8-10.6) k/uL Hct 50.2 H (34.0-46.0) % Neutrophils # 16.8 H (1.3-7.7) k/uL Lymphocytes # 0.9 L (1.0-4.8) k/uL BUN 19 H (7-17) mg/dL Creatinine 0.45 L (0.52-1.04) mg/dL Glucose 500 H (74-99) mg/dL POC Glucose (mg/dL) (75-99) mg/dL Alkaline Phosphatase 137 H (38-126) U/L Ur Specific [place] 1.040 H (1.001-1.035) Urine Glucose (UA) 4+ H (Negative) Urine Ketones 1+ H (Negative) 09/23/20 09/23/20 Range/Units 09:16 12:46 WBC (3.8-10.6) k/uL Hct (34.0-46.0) % Neutrophils # (1.3-7.7) k/uL Lymphocytes # (1.0-4.8) k/uL BUN (7-17) mg/dL Creatinine (0.52-1.04) mg/dL Glucose (74-99) mg/dL POC Glucose (mg/dL) 428 H 262 H (75-99) mg/dL Alkaline Phosphatase (38-126) U/L Ur Specific [place] (1.001-1.035) Urine Glucose (UA) (Negative) Urine Ketones (Negative) Thrombosis Risk Factor Assmnt - DVT/VTE Prophylaxis DVT/VTE Prophylaxis: Pharmacologic Prophylaxis ordered Assessment and Plan Assessment: Intractable nausea vomiting and diarrhea likely due to acute gastroenteritis. CT abdomen pelvis is negative. Hyperglycemia with uncontrolled diabetes type 2 Leukocytosis. Rule out infection. Likely reactive. Dehydration and volume depletion Obstructive sleep apnea not on CPAP at home Morbid obesity Diabetic peripheral neuropathy Anxiety/depression Ongoing nicotine addiction DVT prophylaxis with heparin subcu Plan: Patient will be controlled on IV hydration and was given is seen IV in the ER. Continue with Lantus and sliding scale and monitor blood sugars closely. Symptomatic management for nausea and vomiting. C. diff was sent due to diarrhea. No evidence of recent antibiotic use. Continue with home medications and follow closely. Time with Patient: Greater than 30
[2020-09-24] MEDS ORDERED: SODIUM CHLORIDE 0.9% 1,000 ML IV SCH (01:15)
[2020-09-24 06:57] LABS: Glucose,Whole Blood 95 mg/dL (75-99)
[2020-09-24] MEDS: INSULIN ASPART (NovoLOG) 100 UNIT/ML VIAL SQ SCH ×2 (07:13→13:16)
[2020-09-24] MEDS: HEPARIN SODIUM,PORCINE/PF 5,000 UNIT/0.5 ML SYRINGE SQ SCH ×2 (07:15→07:28)
[2020-09-24 07:57] VITALS: BP 107/70; PULSE 80; RESP 17; TEMP 98.1
[2020-09-24] MEDS ORDERED: PANTOPRAZOLE 40 MG/10 ML VIAL IV SCH (09:00)
[2020-09-24 10:01] LABS: Basophils % (A) 1 %; Eosinophils # (A) 0.2 k/uL (0-0.7); Eosinophils % (A) 3 %; HCT 42.7 % (34.0-46.0); HGB 13.8 gm/dL (11.4-16.0); Lymphocytes # (A) 2.5 k/uL (1.0-4.8); Lymphocytes % (A) 33 %; MCH 30.9 pg (25.0-35.0); MCHC 32.4 g/dL (31.0-37.0); MCV 95.5 fL (80.0-100.0); Mean Platelet Volume 8.5; Monocytes # (A) 0.5 k/uL (0-1.0); Monocytes % (A) 6 %; Neutrophils # (A) 4.1 k/uL (1.3-7.7); Neutrophils % (A) 55 %; Platelet Count 257 k/uL (150-450); RBC 4.47 m/uL (3.80-5.40); RDW 12.5 % (11.5-15.5); WBC 7.4 k/uL (3.8-10.6)
[2020-09-24 10:36] LABS: African American GFR (CKD) 125.4 (60.0-200.0); Albumin 3.4 g/dL (3.80-4.90); Albumin/Globulin Ratio 1.48 (1.60-3.17); Anion Gap 7.3 mmol/L (4.00-12.00); Calcium 8.5 mg/dL (8.7-10.3); Carbon Dioxide 28.7 mmol/L (21.6-31.8); Globulin 2.3 g/dL (1.6-3.3); Non-African American GFR(CKD) 108.2 (60.0-200.0); Potassium 3.9 mmol/L (3.5-5.5); Total Bilirubin 0.3 mg/dL (0.3-1.2); Total Protein 5.7 g/dL (6.2-8.2)
[2020-09-24 11:58] LABS: Glucose,Whole Blood 174 mg/dL (75-99)
--- NOTE | 2020-09-26 12:36 | P.DS ---
Providers Date of admission: 09/23/20 14:07 Expected date of discharge: 09/24/20 Attending physician: Robi Nick MD Primary care physician: Raffy Cortez Hospital Course: Final diagnosis Intractable nausea vomiting and diarrhea likely due to acute gastroenteritis. CT abdomen pelvis is negative. Hyperglycemia with uncontrolled diabetes type 2 Leukocytosis. Ruled out infection. Likely reactive. Improved Dehydration and volume depletion, improved Obstructive sleep apnea not on CPAP at home Morbid obesity Diabetic peripheral neuropathy Anxiety/depression Ongoing nicotine addiction DVT prophylaxis with heparin subcu Discharge disposition Patient is being discharged in a stable condition with guarded prognosis to home. Patient will follow-up with Dr. Akbar in the outpatient setting upon discharge. Total time taken is greater than 35 minutes. Hospital course Patient is a 55-year-old female with a known history of diabetes type 2, asthma/COPD, obstructive sleep apnea, morbid obesity, hypothyroidism, diabetic peripheral neuropathy, RLS, anxiety/depression and currently with a smoker presents to ER with complaints of nausea vomiting and diarrhea for the past 3-4 days. 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 None of her other family members didn't get sick. 2 hours after eating food she started having nausea and vomiting a large amount of diarrhea. She felt very weak and tired for the past 2 days. Patient was also complaining of intermittent right lower quadrant sharp abdominal pain which has been resolved. No complaints of fever or chills. No cough or sputum production. Pain is at 7 out of 10 in severity when she had abdominal pain. Patient was having generalized weakness and nausea vomiting is not improving which made her to come to ER. 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 Denied any chest pain or shortness of breath. Denied any recent illnesses. Next and chest x-ray showed chronic changes without acute cardio pulmonary pro cess. CT of the abdomen and pelvis showed no significant abnormality to account for the patient's symptoms. EKG showed sinus tachycardia Laboratory data showed WBC 18.5 hemoglobin 16.0 and platelets 345 BUN 19 and creatinine 0.45 neck sent blood sugar is 400 UA is negative for infection. Acetone negative and farmer virus PCR not detected. 09/24/2020 Patient is seen in follow-up this morning with no acute overnight issues. White blood count significantly improved and is 7.4 and hemoglobin is 13.8. BMP within normal limits. Blood sugars improved and instructed the patient to continue with current medication regimen and continue to monitor blood sugars before meals and at bedtime and keep a diary for primary care follow-up. Educated and instructed the patient to continue with diabetic diet and staff development educator also had lengthy discussion with the patient about medication compliance and diet compliance. Patient states abdominal pain has resolved with no further episodes of nausea and vomiting and patient is tolerating diet. Patient is adamant about going home and states she has personal issues to attend to. Patient instructed to follow-up with primary care provider upon discharge. Patient also follows with Dr. Gonzalez outpatient and will continue to do so as needed. Currently no reports of chest pain, shortness of breath, or palpitations. Patient is afebrile. No reports of nausea or vomiting and patient is tolerating diet. Patient will be discharged home today. On exam vital signs are stable. Cardio S1, S2 are muffled. Respiratory system shows diminished breath sounds at the bases with no wheezing or rhonchi noted. Abdomen is soft and obese, and nontender. Nervous system shows no focal deficits. Please refer to medication reconciliation sheet for a list of medications. Patient Condition at Discharge: Fair Plan - Discharge Summary New Discharge Prescriptions: New oxyCODONE-APAP 5-325MG [Percocet 5-325 mg] 1 tab PO Q8H PRN #6 tab PRN Reason: Headache Continue Insulin Glargine [Lantus] 50 - 70 unit SQ HS INSULIN ASPART (NovoLOG) [NovoLOG (formulary)] See Protocol SQ AC-TID Ibuprofen [Motrin] 800 mg PO TID PRN PRN Reason: Pain Albuterol Inhaler (Mhu) [Ventolin Hfa Inhaler (Mhu)] 2 puff INHALATION RT-Q6H PRN PRN Reason: Shortness Of Breath Discharge Medication List Insulin Glargine [Lantus] 50 - 70 unit SQ HS 05/19/14 [History] INSULIN ASPART (NovoLOG) [NovoLOG (formulary)] See Protocol SQ AC-TID 12/24/16 [History] Ibuprofen [Motrin] 800 mg PO TID PRN 04/19/18 [History] Albuterol Inhaler (Mhu) [Ventolin Hfa Inhaler (Mhu)] 2 puff INHALATION RT-Q6H PRN 09/29/18 [History] oxyCODONE-APAP 5-325MG [Percocet 5-325 mg] 1 tab PO Q8H PRN #6 tab 09/24/20 [Rx] Follow up Appointment(s)/Referral(s): Dana Akbar MD [Primary Care Provider] - 09/30/20 9:40 am Patient Instructions/Handouts: How to Stop Smoking (DC), Dehydration (DC) Activity/Diet/Wound Care/Special Instructions: Activity Limited until follow-up Follow-up with primary care provider upon discharge Follow-up with surgery outpatient as needed Continue to monitor blood sugars before meals and at bedtime and keep a diary for primary care follow-up Follow strict consistent carbohydrate heart healthy diet Discharge Disposition: HOME SELF-CARE
== END 2020-09-24 13:55 | disposition home or self-care (01) ==
LOC: EC 08:24 → 6NMEDSUR 14:07
PROVIDERS: ADMIT Internal Medicine; ATTEND Internal Medicine
DX: E86.0 Dehydration (principal); R11.2 Nausea with vomiting, unspecified; E03.9 Hypothyroidism, unspecified; E11.42 Type 2 diabetes mellitus with diabetic polyneuropathy; E11.65 Type 2 diabetes mellitus with hyperglycemia; E66.01 Morbid (severe) obesity due to excess calories; F17.200 Nicotine dependence, unspecified, uncomplicated; F32.9 Major depressive disorder, single episode, unspecified; F41.9 Anxiety disorder, unspecified; G25.81 Restless legs syndrome; G47.33 Obstructive sleep apnea (adult) (pediatric); J44.9 Chronic obstructive pulmonary disease, unspecified; Z79.4 Long term (current) use of insulin; Z80.0 Family history of malignant neoplasm of digestive organs; Z80.41 Family history of malignant neoplasm of ovary; Z82.49 Family history of ischemic heart disease and other diseases of the circulatory system; Z87.11 Personal history of peptic ulcer disease; Z20.822 Contact with and (suspected) exposure to COVID-19
CPT/HCPCS: 96376 ×2; 96375 ×2; 96361; 96374; 99285; 36415; 93005; 80053 ×2; 82150; 82009; 83605; 83690; 83735; 85025 ×2; 81003; 87324; 87635; 71046; 74018; 74177; G0378 ×2; J2405; J1885 ×2; C9113; Q9967; J1644

== ENCOUNTER 2021-01-07 08:22 | Emergency (ER) | payer MEDICARE, OTHER ==
[2021-01-07] MEDS ORDERED: ONDANSETRON 4 MG/2 ML VIAL IVP STA (09:00)
[2021-01-07] MEDS ORDERED: SODIUM CHLORIDE 0.9% 1,000 ML IV STA (09:00)
[2021-01-07] MEDS ORDERED: MORPHINE SULFATE 4 MG/ML SYRINGE IV STA (09:00)
--- NOTE | 2021-01-07 10:20 | US ---
EXAMINATION TYPE: US gallbladder DATE OF EXAM: 01/07/2021 COMPARISON: 09/23/2020 CT. CLINICAL HISTORY: RUQ pain. Diabetes EXAM MEASUREMENTS: Liver Length: 10.1 cm Gallbladder Wall: 0.2 cm CBD: 0.5 cm Right Kidney: 10.4x6.2x6.2 cm Pancreas: Heterogenous Liver: Increased attenuation Gallbladder: wnl Evidence for sonographic Moses's sign: No CBD: wnl Right Kidney: wnl Visualized pancreas is slightly heterogeneous without mass or ductal dilatation. Visualized liver is slightly heterogeneously hyperechoic without mass or ductal dilatation. Finding felt on basis of mil d diffuse fatty infiltration. No surrounding ascites. Gallbladder seen without shadowing mobile galls tones. No abnormal wall thickening or surrounding ascites. No right-sided hydronephrosis. IMPRESSION: No gallstones or ultrasound evidence for acute cholecystitis.
[2021-01-07 10:25] LABS: Appearance,Urine Clear (Clear); Bilirubin,Urine Negative (Negative); Blood,Urine Negative (Negative); Color,Urine Yellow; Glucose,Urine (UA) 4+ (Negative); Ketones,Urine Negative (Negative); Leukocyte Esterase,Urine Trace (Negative); Mucus,Urine Rare /hpf; Nitrite,Urine Negative (Negative); Protein,Urine Negative (Negative); RBC,Urine 1 /hpf (0-5); Specific Gravity,Urine 1.018 (1.001-1.035); Squamous Epithelial Cell,Urine 3 /hpf (0-4); Urobilinogen,Urine <2.0 mg/dL (<2.0); WBC,Urine 1 /hpf (0-5)
[2021-01-07 10:29] LABS: Basophils # (A) 0.1 k/uL (0-0.2); Basophils % (A) 1 %; Eosinophils # (A) 0.5 k/uL (0-0.7); Eosinophils % (A) 6 %; Lymphocytes # (A) 3.1 k/uL (1.0-4.8); Lymphocytes % (A) 37 %; MCH 30.2 pg (25.0-35.0); MCV 94.5 fL (80.0-100.0); Mean Platelet Volume 7.9; Monocytes # (A) 0.5 k/uL (0-1.0); Monocytes % (A) 6 %; Neutrophils # (A) 4.2 k/uL (1.3-7.7); Neutrophils % (A) 49 %; Platelet Count 326 k/uL (150-450); RBC 4.98 m/uL (3.80-5.40); RDW 12.5 % (11.5-15.5); WBC 8.5 k/uL (3.8-10.6)
[2021-01-07 10:40] LABS: ALT 18 U/L (4-34); AST 22 U/L (14-36); African American GFR (CKD) >90 (>60 ml/min/1.73 sqM); Albumin 3.8 g/dL (3.5-5.0); Alkaline Phosphatase 103 U/L (38-126); Amylase 38 U/L (30-110); Anion Gap 8 mmol/L; Blood Urea Nitrogen 14 mg/dL (7-17); Calcium 9.3 mg/dL (8.4-10.2); Carbon Dioxide 26 mmol/L (22-30); Chloride 103 mmol/L (98-107); Glucose 237 mg/dL (74-99); Lipase 43 U/L (23-300); Non-African American GFR(CKD) >90 (>60 ml/min/1.73 sqM); Potassium 4.8 mmol/L (3.5-5.1); Sodium 137 mmol/L (137-145); Total Bilirubin 0.3 mg/dL (0.2-1.3); Total Protein 6.9 g/dL (6.3-8.2)
--- NOTE | 2021-01-07 10:46 | ED ---
Abdominal Pain HPI - General Chief Complaint: Abdominal Pain Stated Complaint: abd pain Time Seen by Provider: 01/07/21 08:32 Source: patient, RN notes reviewed Limitations: no limitations - History of Present Illness Initial Comments: Patient is a 55 she'll female that presents to emergency department complaining of right upper quadrant abdominal pain. She notes nausea along with patient she does have her gallbladder still. She notes that her skin is sensitive. She notes that her pain is approximately an 7-8 out of 10 with no relief. She denied any alleviating factors. She notes that she did eat chili dogs last night which made the pain worse. Patient denied any other issues or complaints. She denied chest pain shortness breath headache diarrhea constipation fever fatigue chills. - Related Data Home Medications Medication Instructions Recorded Confirmed Insulin Glargine [Lantus Vial] 50 - 70 unit SQ HS 05/19/14 09/23/20 INSULIN ASPART (NovoLOG) [NovoLOG See Protocol SQ AC-TID 12/24/16 09/23/20 (formulary)] Ibuprofen [Motrin] 800 mg PO TID PRN 04/19/18 09/23/20 Albuterol Inhaler (Mhu) [Ventolin 2 puff INHALATION RT-Q6H PRN 09/29/18 09/23/20 Hfa Inhaler (Mhu)] Previous Rx's Medication Instructions Recorded oxyCODONE-APAP 5-325MG [Percocet 1 tab PO Q8H PRN #6 tab 09/24/20 5-325 mg] Allergies Allergy/AdvReac Type Severity Reaction Status Date / Time nickel [Nickel] AdvReac PAIN FROM Verified 01/07/21 08:26 KNEE IMPLANT Review of Systems ROS Statement: Those systems with pertinent positive or pertinent negative responses have been documented in the HPI. ROS Other: All systems not noted in ROS Statement are negative. Past Medical History Past Medical History: Asthma, COPD, Diabetes Mellitus, GERD/Reflux, Osteoarthritis (OA), Pneumonia, Sleep Apnea/CPAP/BIPAP, Thyroid Disorder Additional Past Medical History / Comment(s): DOES NOT USE CPAP. DAMAGED VOCAL CORDS (POLYPS). IDDM type II, bilateral feet neuropathy, hiatal hernia, superficial blood clots in legs, varicose veins bilaterally, RLS, thyroid nodules, JOHNATHAN-no treatment required, diverticulitis with bowel resection, "dizzy spells" in the past. Peptic ulcer disease. 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 She has no other history of STDs. History of Any Multi-Drug Resistant Organisms: None Reported Past Surgical History: Adenoidectomy, Bladder Surgery, Bowel Resection, Joint Replacement, Orthopedic Surgery, Tonsillectomy Additional Past Surgical History / Comment(s): BINA TOTAL KNEE, LT X2. CTR LT HAND; LT ULNAR NERVE REPAIR. VOCAL CORD POLYPS REMOVED. LT ANKLE SPUR, MUSCLE SURG; LT SHOULDER RECONSTRUCTION. COLONOSCOPY 2017(2nd), EGD. D&C, BLADDER SUSPENSION W/ MESH., LOW ANTERIOR SIGMOIG RESECTION 03-24-2017. Past Anesthesia/Blood Transfusion Reactions: Previous Problems w/ Anesthesia, Motion Sickness Additional Past Anesthesia/Blood Transfusion Reaction / Comment(s): Slow to wake up @times Past Psychological History: Anxiety, Depression Smoking Status: Current every day smoker Past Alcohol Use History: None Reported Past Drug Use History: None Reported - Past Family History Mother Family Medical History: Cancer, Deep Vein Thrombosis (DVT) Additional Family Medical History / Comment(s): Mother of esophageal cancer at the age of 62 yrs. Father Family Medical History: Congestive Heart Failure (CHF), Coronary Artery Disease (CAD), Deep Vein Thrombosis (DVT) Additional Family Medical History / Comment(s): Father from heart and lung disease at the age of 67yrs. Sister(s) Family Medical History: Cancer Additional Family Medical History / Comment(s): Ovarian cancer. General Exam Limitations: no limitations General appearance: alert, in no apparent distress Head exam: Present: atraumatic, normocephalic, normal inspection Eye exam: Present: normal appearance, PERRL, EOMI. Absent: scleral icterus, conjunctival injection, periorbital swelling ENT exam: Present: normal exam, mucous membranes moist Neck exam: Present: normal inspection Respiratory exam: Present: normal lung sounds bilaterally. Absent: respiratory distress, wheezes, rales, rhonchi, stridor Cardiovascular Exam: Present: regular rate, normal rhythm, normal heart sounds. Absent: systolic murmur, diastolic murmur, rubs, gallop, clicks GI/Abdominal exam: Present: soft, tenderness (right Upper quadrant), normal bowel sounds. Absent: distended, guarding, rebound, rigid Extremities exam: Present: normal inspection, full ROM, normal capillary refill. Absent: tenderness, pedal edema, joint swelling, calf tenderness Neurological exam: Present: alert, oriented X3 Psychiatric exam: Present: normal affect, normal mood Skin exam: Present: warm, dry, intact, normal color. Absent: rash Course Vital Signs 01/07/21 08:22 Temperature 97.6 F Pulse Rate 119 H Respiratory 18 Rate Blood Pressure 116/78 O2 Sat by Pulse 97 Oximetry Medical Decision Making - Medical Decision Making 85 she'll female complaining of right upper quadrant pain worse with chili dogs last night. Labs, 1 L normal saline, 4 mg of Zofran, 4 mg morphine, ultrasound of the gallbladder ordered. Labs unremarkable. Ultrasound negative for any acute cholecystitis or gallstones. Patient most likely extrinsic gallbladder attack. Discussed with Dr. Trevizo, patient discharge home. Patient will be discharged in stable condition with stable vital signs. - Lab Data Result diagrams: 01/07/21 09:31 01/07/21 09:31 Lab Results 01/07/21 01/07/21 01/07/21 Range/Units 09:31 09:31 09:31 WBC 8.5 (3.8-10.6) k/uL RBC 4.98 (3.80-5.40) m/uL Hgb 15.0 (11.4-16.0) gm/dL Hct 47.0 H (34.0-46.0) % MCV 94.5 (80.0-100.0) fL MCH 30.2 (25.0-35.0) pg MCHC 32.0 (31.0-37.0) g/dL RDW 12.5 (11.5-15.5) % Plt Count 326 (150-450) k/uL MPV 7.9 Neutrophils % 49 % Lymphocytes % 37 % Monocytes % 6 % Eosinophils % 6 % Basophils % 1 % Neutrophils # 4.2 (1.3-7.7) k/uL Lymphocytes # 3.1 (1.0-4.8) k/uL Monocytes # 0.5 (0-1.0) k/uL Eosinophils # 0.5 (0-0.7) k/uL Basophils # 0.1 (0-0.2) k/uL Sodium 137 (137-145) mmol/L Potassium 4.8 (3.5-5.1) mmol/L Chloride 103 (98-107) mmol/L Carbon Dioxide 26 (22-30) mmol/L Anion Gap 8 mmol/L BUN 14 (7-17) mg/dL Creatinine 0.37 L (0.52-1.04) mg/dL Est GFR (CKD-EPI)AfAm >90 (>60 ml/min/1.73 sqM) Est GFR (CKD-EPI)NonAf >90 (>60 ml/min/1.73 sqM) Glucose 237 H (74-99) mg/dL Calcium 9.3 (8.4-10.2) mg/dL Total Bilirubin 0.3 (0.2-1.3) mg/dL AST 22 (14-36) U/L ALT 18 (4-34) U/L Alkaline Phosphatase 103 (38-126) U/L Total Protein 6.9 (6.3-8.2) g/dL Albumin 3.8 (3.5-5.0) g/dL Amylase 38 (30-110) U/L Lipase 43 (23-300) U/L Urine Color Yellow Urine Appearance Clear (Clear) Urine pH 6.0 (5.0-8.0) Ur Specific [place] 1.018 (1.001-1.035) Urine Protein Negative (Negative) Urine Glucose (UA) 4+ H (Negative) Urine Ketones Negative (Negative) Urine Blood Negative (Negative) Urine Nitrite Negative (Negative) Urine Bilirubin Negative (Negative) Urine Urobilinogen <2.0 (<2.0) mg/dL Ur Leukocyte Esterase Trace H (Negative) Urine RBC 1 (0-5) /hpf Urine WBC 1 (0-5) /hpf Ur Squamous Epith Cells 3 (0-4) /hpf Urine Mucus Rare H (None) /hpf - Radiology Data Radiology results: report reviewed, image reviewed Ultrasound gallbladder: No gallstones or EVIDENCE FOR ACUTE CHOLECYSTITIS. Disposition Clinical Impression: Right upper quadrant pain, Gallbladder attack Disposition: HOME SELF-CARE Condition: Stable Instructions (If sedation given, give patient instructions): Abdominal Pain (ED) Additional Instructions: Please return to the Emergency Department if symptoms worsen or any other concerns. Follow-up with primary care 1-2 days. Avoid triggering foods. Is patient prescribed a controlled substance at d/c from ED?: No Referrals: Dana Akbar MD [Primary Care Provider] - 1-2 days Time of Disposition: 10:46
[2021-01-07 10:58] VITALS: BP 136/78; PULSE 85; RESP 20; TEMP 98.5
== END 2021-01-07 10:59 | disposition home or self-care (01) ==
LOC: EC 08:22
DX: K82.9 Disease of gallbladder, unspecified (principal); J44.9 Chronic obstructive pulmonary disease, unspecified; E11.9 Type 2 diabetes mellitus without complications; K21.9 Gastro-esophageal reflux disease without esophagitis; M19.90 Unspecified osteoarthritis, unspecified site; E07.9 Disorder of thyroid, unspecified; F41.9 Anxiety disorder, unspecified; F32.9 Major depressive disorder, single episode, unspecified; F17.200 Nicotine dependence, unspecified, uncomplicated; Z79.4 Long term (current) use of insulin; Z87.11 Personal history of peptic ulcer disease; Z90.89 Acquired absence of other organs; Z96.653 Presence of artificial knee joint, bilateral
CPT/HCPCS: 99284; 96374; 96375; 96361; 36415; 80053; 82150; 83690; 85025; 81001; 76705; J2270; J2405

== ENCOUNTER → 2021-03-19 | Outpatient (CLI) | payer MEDICARE, OTHER ==
--- NOTE | 2021-03-19 12:09 | CT ---
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 CT DLP: 624.2 mGycm. Automated Exposure Control for Dose Reduction was Utilized. TECHNIQUE: CT scan of the sinuses is performed without contrast, axial images are obtained, coronal r eformatted images are also reviewed. FINDINGS: Nasal septal deviation is noted and there is moderate ethmoidal thickening. Mild right maxi llary, sphenoidal and frontal sinus mucosal thickening. No air-fluid levels. The ostiomeatal complex is patent bilaterally on the coronal images. No pathologic adenopathy identif ied. Visualized portion of mastoid air cells show no abnormal opacification. The globes are intact bilate rally. IMPRESSION: 1. Chronic changes of sinusitis with no evidence of acute sinusitis. No evidence of intrasinus mass. 2. Base of the tongue is minimally included in the [id number]. Does appear to be slight asymmetry of the base of tongue of the right. Correlate clinically
--- NOTE | 2021-03-19 12:13 | FL ---
EXAMINATION TYPE: FL barium swallow DATE OF EXAM: 03/19/2021 COMPARISON: None HISTORY: Dysphasia TECHNIQUE: Double air contrast technique was utilized. Fluoroscopy and radiographs were obtained FINDINGS: Esophagus has a normal caliber has normal contour of the gastroesophageal junction. Gastroe sophageal junction opens to normal caliber. Few tertiary contractions were evident during the examina tion compatible with presbyesophagus. There appears to be complete stripping of the esophageal bolus in the horizontal drinking position. Fluoroscopy time: 15 seconds. Images: 101 IMPRESSION: 1. Presbyesophagus
== END | disposition home or self-care (01) ==
LOC: RADUSWWP 10:27
PROVIDERS: ATTEND Otolaryngology
DX: J32.9 Chronic sinusitis, unspecified (principal); K22.89 Other specified disease of esophagus
CPT/HCPCS: 70486; 74220

== ENCOUNTER → 2021-03-24 | Outpatient (CLI) | payer MEDICARE, OTHER ==
--- NOTE | 2021-03-25 09:14 | US ---
EXAMINATION TYPE: US thyroid st tissue head/neck DATE OF EXAM: 03/24/2021 COMPARISON: 11/24/2019 CLINICAL HISTORY: 56-year-old female E04.1 THYROID NODULE. Followup thyroid nodules. Prior thyroid bi opsies. TECHNIQUE: Multiple sonographic images of the thyroid gland are obtained. FINDINGS: GLAND SIZE: Right Lobe: 5.2 x 2.3 x 3.0 cm Overall Parenchyma: heterogenous Left Lobe: 5.1 x 2.0 x 2.5 cm Overall Parenchyma: heterogeneous Isthmus Thickness: 1.0 cm NODULES RIGHT: # of nodules measured on right: 2 largest of multiple nodules 1. 2.4 X 1.6 x 1.6 cm, upper mid pole, solid, isoechoic nodule, which is wide as is tall, with smoo th margins, without echogenic foci. Prior size: 2.0x 1.8x 1.4cm (length may be slightly overestimated on the current exam) 2. 1.2 X 1.3 x 0.8 cm, mid medial pole, solid hypoechoic nodule, which is wider than tall, with ill -defined margins, with a coarse calcification. Prior size: not previously seen LEFT: # of nodules measured on left: 2 largest of multiple nodules 1. 0.7 X 0.7 x 0.4 cm, upper lateral, solid, hypoechoic nodule, which is wider than tall, with ill- defined margins, without echogenic foci. Prior size: 1.0 x 0.8 x 0.8 cm 2. 2.1 X 1.2 x 1.2 cm, lower pole, heterogeneous, hypoechoic nodule, which is wide as is tall, wit h lobulated margins, without echogenic foci. Prior size: 1.4 x 1.2 x 1.3 cm ISTHMUS: # of nodules measured in the isthmus: 0 Bilateral neck scanned: no evidence of lymphadenopathy. IMPRESSION: 1. Multinodular goiter. 2. A dominant solid nodule at the right upper pole is relatively stable at 2.4 x 1.6 cm (versus 2.0 x 1.8 cm, previously). The length on the current exam may be slightly overestimated. 3. Solid 1.3 nodule containing a coarse calcification at the right midpole medially not clearly seen previously. Follow-up recommended. 4. A 2.1 x 1.2 cm solid nodule at the left lower pole previously measured 1.4 x 1.3 cm on 11/24/2019.
== END | disposition home or self-care (01) ==
LOC: RADUSWWP 15:39
PROVIDERS: ATTEND Otolaryngology
DX: E04.2 Nontoxic multinodular goiter (principal)
CPT/HCPCS: 76536

== ENCOUNTER → 2021-03-25 | Outpatient (CLI) | payer MEDICARE, OTHER ==
--- NOTE | 2021-03-25 13:18 | NM ---
EXAMINATION TYPE: NM hepatobiliary w EF DATE OF EXAM: 03/25/2021 COMPARISON: NONE HISTORY: 56-year-old female R10.11, right upper quadrant pain TECHNIQUE: After the intravenous administration of 4.4 mCi Tc 99m Mebrofenin hepatobiliary scintigrap hy is performed. Immediate images post injection. FINDINGS: There is satisfactory initial accumulation of tracer by the liver. The gallbladder is visualized wit hin 6 minutes. The small bowel activity is noted within 48 minutes. At one hour 8 ounces of oral en sure plus is given to mimic CCK and gallbladder ejection fraction is calculated borderline increased 79%. IMPRESSION: 1. No scintigraphic evidence for acute/chronic cholecystitis or biliary dyskinesia. 2. Borderline increased gallbladder ejection fraction of 79%. Findings may reflect gallbladder hyperk inesis.
== END | disposition home or self-care (01) ==
LOC: RADNMMAIN 06:45
PROVIDERS: ATTEND Internal Medicine
DX: R10.11 Right upper quadrant pain (principal)
CPT/HCPCS: 78226; A9537

== ENCOUNTER → 2021-03-31 | Outpatient (CLI) | payer MEDICARE, OTHER ==
[2021-03-31 19:23] LABS: T4, Free (Free Thyroxine) 1.24 ng/dL (0.800-1.800)
== END | disposition home or self-care (01) ==
LOC: LABWHC1 12:02
PROVIDERS: ATTEND Otolaryngology
DX: E04.1 Nontoxic single thyroid nodule (principal)
CPT/HCPCS: 36415; 82330; 84439; 84443; 86376

== ENCOUNTER 2021-04-08 08:38 | Day surgery (SDC) | payer MEDICARE, OTHER ==
[2021-04-08 08:55] VITALS: BP 138/91; PULSE 118; RESP 16; TEMP 97.9
[2021-04-08 09:11] LABS: Glucose,Whole Blood 185 mg/dL (75-99)
--- NOTE | 2021-04-08 10:40 | US ---
ULTRASOUND GUIDED FNA THYROID BIOPSY: CLINICAL HISTORY: Request for 2 right-sided and a single left-sided thyroid nodule measuring greater than 1 cm FINDINGS: The procedure was explained to the patient. The risks, complications, benefits and alternatives were discussed and any questions were answered. Informed consent was obtained. Patient was placed supin e on the ultrasound table and prepped and draped in the usual sterile fashion. Utilizing a 25 gauge needle, five passes were made into the requested 3 thyroid nodules. Patient was stable throughout the procedure. Pathology is pending. All elements of maximal barrier technique were utilized. IMPRESSION: 1. Successful ultrasound guided FNA thyroid biopsy.
== END 2021-04-08 10:05 | disposition home or self-care (01) ==
LOC: RADPROMAIN 08:38
PROVIDERS: ATTEND Otolaryngology
DX: E04.1 Nontoxic single thyroid nodule (principal)
CPT/HCPCS: 10005; 10006; 88173; 88305

== ENCOUNTER 2021-06-01 02:31 | Emergency (ER) | payer MEDICARE, OTHER ==
[2021-06-01 02:36] VITALS: TEMP 97.7
[2021-06-01] MEDS ORDERED: HYDROmorphone 1 MG/ML 1 ML SYRINGE IM STA (03:56)
[2021-06-01 04:00] LABS: Appearance,Urine Clear (Clear); Bilirubin,Urine Negative (Negative); Blood,Urine Negative (Negative); Color,Urine Yellow; Glucose,Urine (UA) 4+ (Negative); Ketones,Urine Negative (Negative); Leukocyte Esterase,Urine Negative (Negative); Nitrite,Urine Negative (Negative); Protein,Urine Negative (Negative); Specific Gravity,Urine 1.033 (1.001-1.035); Urobilinogen,Urine <2.0 mg/dL (<2.0)
--- NOTE | 2021-06-01 04:20 | ED ---
Back Pain HPI - General Chief Complaint: Back Pain/Injury Stated Complaint: LT hip pain Time Seen by Provider: 06/01/21 02:35 Source: patient, RN notes reviewed, old records reviewed Limitations: no limitations - History of Present Illness Initial Comments: This is a 56-year-old female to the emergency department for evaluation today. Patient presents today for evaluation of severe left hip pain left back pain pain going down left leg. No trauma noted symptoms 3 days. Symptoms are progressively worsened. Persistent here in the ER currently the plantar patient is having difficulty with ambulation or walking. Otherwise no problems with bowel or bladder. No nausea vomiting no fevers. MD Complaint: back pain -: days(s) (3) Similar Symptoms Previously: Yes Place: home Radiation: none Severity: severe Severity scale (1-10): 8 Quality: sharp Consistency: constant Improves With: none Worsens With: movement Context: bending, unknown Associated Symptoms: denies other symptoms Treatments Prior to Arrival: other medications - Related Data Home Medications Medication Instructions Recorded Confirmed Insulin Glargine [Lantus Vial] 50 - 80 unit SQ HS 05/19/14 04/09/21 INSULIN ASPART (NovoLOG) [NovoLOG See Protocol SQ AC-TID 12/24/16 04/09/21 (formulary)] Ibuprofen [Motrin] 800 mg PO DAILY PRN 04/19/18 04/08/21 Albuterol Inhaler (Mhu) [Ventolin 2 puff INHALATION RT-Q6H PRN 09/29/18 04/09/21 Hfa Inhaler (Mhu)] Amoxic-Pot Clav 875-125Mg 1 tab PO BID 04/02/21 04/09/21 [Augmentin 875-125] Cyclobenzaprine [Flexeril] 10 mg PO TID PRN 04/02/21 04/09/21 ALPRAZolam [Xanax] 1 mg PO DAILY PRN 04/07/21 04/09/21 Previous Rx's Medication Instructions Recorded Acetaminophen Tab [Tylenol] 650 mg PO Q6H #30 tab 04/09/21 Docusate [Colace] 100 mg PO BID #20 capsule 04/09/21 oxyCODONE HCL [OxyIR] 5 mg PO Q6H PRN 3 Days #10 tab 04/09/21 Allergies Allergy/AdvReac Type Severity Reaction Status Date / Time nickel [Nickel] AdvReac PAIN FROM Verified 04/09/21 06:44 KNEE IMPLANT Review of Systems ROS Statement: Those systems with pertinent positive or pertinent negative responses have been documented in the HPI. ROS Other: All systems not noted in ROS Statement are negative. Past Medical History Past Medical History: Asthma, COPD, Diabetes Mellitus, GERD/Reflux, Osteoarthritis (OA), Pneumonia, Sleep Apnea/CPAP/BIPAP, Thyroid Disorder Additional Past Medical History / Comment(s): DOES NOT USE CPAP. DAMAGED VOCAL CORDS (POLYPS). IDDM type II, bilateral feet neuropathy, hiatal hernia, superficial blood clots in legs, varicose veins bilaterally, RLS, thyroid nodules, JOHNATHAN-no treatment required, diverticulitis with bowel resection, "dizzy spells" in the past. Peptic ulcer disease. CURRENTLY ON ANTIBX FOR SINUS INFECTION-PT STATES DR. ORANTES AWARE History of Any Multi-Drug Resistant Organisms: None Reported Past Surgical History: Adenoidectomy, Bladder Surgery, Bowel Resection, Joint Re placement, Orthopedic Surgery, Tonsillectomy Additional Past Surgical History / Comment(s): BINA TOTAL KNEE, LT X2. CTR LT HAND; LT ULNAR NERVE REPAIR. VOCAL CORD POLYPS REMOVED. LT ANKLE SPUR, MUSCLE SURG; LT SHOULDER RECONSTRUCTION. COLONOSCOPY 2017(2nd), EGD. D&C, BLADDER SUSPENSION W/ MESH., LOW ANTERIOR SIGMOIG RESECTION 03-24-2017. THYROID BX Past Anesthesia/Blood Transfusion Reactions: Previous Problems w/ Anesthesia, Motion Sickness Additional Past Anesthesia/Blood Transfusion Reaction / Comment(s): Slow to wake up @times Past Psychological History: Anxiety, Depression Smoking Status: Current every day smoker - Past Family History Mother Family Medical History: Cancer, Deep Vein Thrombosis (DVT) Additional Family Medical History / Comment(s): Mother of esophageal cancer at the age of 62 yrs. Father Family Medical History: Congestive Heart Failure (CHF), Coronary Artery Disease (CAD), Deep Vein Thrombosis (DVT) Additional Family Medical History / Comment(s): Father from heart and lung disease at the age of 67yrs. Sister(s) Family Medical History: Cancer Additional Family Medical History / Comment(s): Ovarian cancer. General Exam Limitations: no limitations General appearance: alert, in no apparent distress Head exam: Present: atraumatic, normocephalic, normal inspection Eye exam: Present: normal appearance, PERRL, EOMI. Absent: scleral icterus, conjunctival injection, periorbital swelling ENT exam: Present: normal exam, mucous membranes moist Neck exam: Present: normal inspection. Absent: tenderness, meningismus, lymphadenopathy Respiratory exam: Present: normal lung sounds bilaterally. Absent: respiratory distress, wheezes, rales, rhonchi, stridor Cardiovascular Exam: Present: regular rate, normal rhythm, normal heart sounds. Absent: systolic murmur, diastolic murmur, rubs, gallop, clicks GI/Abdominal exam: Present: soft, normal bowel sounds. Absent: distended, tenderness, guarding, rebound, rigid Extremities exam: Present: normal inspection, full ROM, normal capillary refill. Absent: tenderness, pedal edema, joint swelling, calf tenderness Back exam: Present: normal inspection Neurological exam: Present: alert, oriented X3, CN II-XII intact Psychiatric exam: Present: normal affect, normal mood Skin exam: Present: warm, dry, intact, normal color. Absent: rash Course Vital Signs 06/01/21 02:33 Temperature 97.7 F Pulse Rate 120 H Respiratory 20 Rate Blood Pressure 142/105 O2 Sat by Pulse 98 Oximetry - Reevaluation(s) Reevaluation #1: 06/01/21 04:57 Medical record is reviewed Reevaluation #2: 06/01/21 04:58 Patient informed results and questions answered Reevaluation #3: 06/01/21 04:58 Patient's pain is controlled Medical Decision Making - Medical Decision Making 56 female to the emergency department for evaluation of severe sciatic type pain left hip in the left knee. Pain is currently improved and patient can be discharged home - Lab Data Lab Results 06/01/21 Range/Units 03:40 Urine Color Yellow Urine Appearance Clear (Clear) Urine pH 6.0 (5.0-8.0) Ur Specific [place] 1.033 (1.001-1.035) Urine Protein Negative (Negative) Urine Glucose (UA) 4+ H (Negative) Urine Ketones Negative (Negative) Urine Blood Negative (Negative) Urine Nitrite Negative (Negative) Urine Bilirubin Negative (Negative) Urine Urobilinogen <2.0 (<2.0) mg/dL Ur Leukocyte Esterase Negative (Negative) - Radiology Data Radiology results: report reviewed (CT lumbosacral spine negative for traumatic injury), image reviewed Disposition Clinical Impression: Mechanical back pain, Strain of lumbar region, Lumbar radiculopathy Disposition: HOME SELF-CARE Condition: Good Instructions (If sedation given, give patient instructions): Acute Low Back Pain (ED) Is patient prescribed a controlled substance at d/c from ED?: No Referrals: Dana Akbar MD [Primary Care Provider] - 1-2 days
--- NOTE | 2021-06-01 04:47 | CT ---
EXAMINATION TYPE: CT lumbar spine wo con DATE OF EXAM: 06/01/2021 COMPARISON: None HISTORY: left hip pain CT DLP: 1893.6 mGycm Automated exposure control for dose reduction was used. Images obtained from the level of T12-S3 vertebra without contrast. Lumbar vertebrae have fairly normal alignment. Posterior elements are intact. There is no compression fracture. There is no lumbar paraspinal mass. Sacroiliac joints appear intact there is no evidence o f lumbar spinal stenosis. IMPRESSION: Negative CT scan of the lumbar spine. No fracture.
[2021-06-01] MEDS ORDERED: IBUPROFEN 800 MG TAB PO STA (04:55)
[2021-06-01] MEDS ORDERED: dexAMETHasone 2 MG TAB PO STA (04:55)
[2021-06-01] MEDS ORDERED: ACET/COD 300 MG/30 MG STARTER PACK 6 TAB BTL PO STA (04:56)
[2021-06-01] MEDS ORDERED: IBUPROFEN 600 MG STARTER PACK 4 TAB BTL PO STA (04:56)
[2021-06-01 05:27] VITALS: BP 142/84; PULSE 98; RESP 18
== END 2021-06-01 05:27 | disposition home or self-care (01) ==
LOC: EC 02:31
DX: S39.012A Strain of muscle, fascia and tendon of lower back, initial encounter (principal); M54.16 Radiculopathy, lumbar region; E11.40 Type 2 diabetes mellitus with diabetic neuropathy, unspecified; J44.9 Chronic obstructive pulmonary disease, unspecified; M19.90 Unspecified osteoarthritis, unspecified site; K21.9 Gastro-esophageal reflux disease without esophagitis; F32.A Depression, unspecified; F41.9 Anxiety disorder, unspecified; F17.200 Nicotine dependence, unspecified, uncomplicated; Z79.4 Long term (current) use of insulin; Z79.51 Long term (current) use of inhaled steroids; Z79.899 Other long term (current) drug therapy; X58.XXXA Exposure to other specified factors, initial encounter
CPT/HCPCS: 81003; 72131; 99284; 96372; J1170; J8540

== ENCOUNTER → 2022-06-30 | Outpatient (CLI) | payer MEDICARE, OTHER ==
--- NOTE | 2022-06-30 15:12 | US ---
EXAMINATION TYPE: US thyroid st tissue head/neck DATE OF EXAM: 06/30/2022 COMPARISON: US CLINICAL INDICATION: Female, 57 years old with history of E04.1 THYROID NODULE; F/U nodules GLAND SIZE: Right Lobe: 5.4 x 2.4 x 2.1 cm Overall Parenchyma: heterogenous Left Lobe: 4.8 x 2.3 x 2.0 cm Overall Parenchyma: heterogeneous Isthmus Thickness: 0.7 cm NODULES RIGHT: # of nodules measured on right: 2 1. 2.5 X 1.7 x 1.6 cm, mid Prior size: 2.4 x 1.6 x 1.6 cm TIRADS Score: 3 TIRADS Category 3: Mildly Suspicious Composition: Solid or almost completely solid (2 points). Echogenicity: Hyperechoic or isoechoic (1 point). Shape: Wider than tall (0 points). Margin: Smooth (0 points). Echogenic foci: None or large comet-tail artifacts (0 points) Recommendation: If >2.5cm: FNA; If >1.5cm: Follow up at 1,3,5 years 2. 1.0 X 0.7 x 1.0 cm, mid, Prior size: 1.2 x 0.8 x 1.3 cm TIRADS Score: 5 TIRADS Category 4: Moderately Suspicious Composition: Solid or almost completely solid (2 points). Echogenicity: Hypoechoic (2 points). Shape: Wider than tall (0 points). Margin: Smooth (0 points). Echogenic foci: Macrocalcifications (1 point) Recommendation: If >1.5cm: FNA; If >1cm: Follow up at 1,2, 3,5 years LEFT: # of nodules measured on left: 2 1. 0.8 X 0.6 x 0.6 cm, upper lateral, Prior size: 0.7 x 0.7 x 0.4 cm TIRADS Score: 3 TIRADS Category 3: Mildly Suspicious Composition: Solid or almost completely solid (2 points). Echogenicity: Hyperechoic or isoechoic (1 point). Shape: Wider than tall (0 points). Margin: Smooth (0 points). Echogenic foci: None or large comet-tail artifacts (0 points) Recommendation: If >2.5cm: FNA; If >1.5cm: Follow up at 1,3,5 years 2. 1.6 X 1.2 x 1.4 cm, lower mid, Prior size: 2.1 x 1.2 x 1.2 cm TIRADS Score: 4 TIRADS Category 4: Moderately Suspicious Composition: Solid or almost completely solid (2 points). Echogenicity: Hypoechoic (2 points). Shape: Wider than tall (0 points). Margin: Smooth (0 points). Echogenic foci: None or large comet-tail artifacts (0 points) Recommendation: If >1.5cm: FNA; If >1cm: Follow up at 1,2, 3,5 years ISTHMUS: # of nodules measured in the isthmus: 0 Bilateral neck scanned, no evidence of lymphadenopathy. Essentially similar findings when compared t o prior. IMPRESSION: Bilateral thyroid nodules with recommendations as described above. A thyroid nodule in the isthmus me ets criteria for biopsy as well as a right dominant thyroid nodule if not already performed.
== END | disposition home or self-care (01) ==
LOC: RADUSWWP 14:13
PROVIDERS: ATTEND Otolaryngology
DX: E04.2 Nontoxic multinodular goiter (principal)
CPT/HCPCS: 76536

== ENCOUNTER 2022-08-31 14:35 | Emergency (ER) | payer MEDICARE, OTHER ==
[2022-08-31] MEDS ORDERED: KETOROLAC 15 MG/ML 1 ML VIAL IM STA (15:19)
[2022-08-31] MEDS ORDERED: LIDOCAINE 5% PATCH TOPICAL SCH (15:30)
--- NOTE | 2022-08-31 15:31 | ED ---
General Adult HPI - General Chief complaint: Neck Pain/Injury Stated complaint: Left Side of Neck Pain Time Seen by Provider: 08/31/22 15:14 Source: patient, RN notes reviewed Mode of arrival: ambulatory Limitations: no limitations - History of Present Illness Initial comments: 57-year-old female withpast medical history presents the emergency department with a chief complaint of neck pain. Patient reports worsening neck pain for the last month. She denies any injury or trauma. She denies any numbness, tingling, weakness in extremities. She took one [place] yesterday with mild symptomatic relief. Denies fever, chills, saddle paresthesia, loss of bowel or bladder function - Related Data Home Medications Medication Instructions Recorded Confirmed Insulin Glargine [Lantus Vial] 50 - 80 unit SQ HS 05/19/14 04/09/21 INSULIN ASPART (NovoLOG) [NovoLOG See Protocol SQ AC-TID 12/24/16 04/09/21 (formulary)] Ibuprofen [Motrin] 800 mg PO DAILY PRN 04/19/18 04/08/21 Albuterol Inhaler [Ventolin Hfa 2 puff INHALATION RT-Q6H PRN 09/29/18 04/09/21 Inhaler] Amoxic-Pot Clav 875-125Mg 1 tab PO BID 04/02/21 04/09/21 [Augmentin 875-125] Cyclobenzaprine [Flexeril] 10 mg PO TID PRN 04/02/21 04/09/21 ALPRAZolam [Xanax] 1 mg PO DAILY PRN 04/07/21 04/09/21 Previous Rx's Medication Instructions Recorded Acetaminophen Tab [Tylenol] 650 mg PO Q6H #30 tab 04/09/21 Docusate [Colace] 100 mg PO BID #20 capsule 04/09/21 oxyCODONE HCL [OxyIR] 5 mg PO Q6H PRN 3 Days #10 tab 04/09/21 Ketorolac [Toradol] 10 mg PO Q8HR #15 tab 08/31/22 Lidocaine 5% Patch [Lidoderm 5% 1 patch TOPICAL DAILY #7 patch 08/31/22 Patch] Allergies Allergy/AdvReac Type Severity Reaction Status Date / Time nickel [Nickel] AdvReac PAIN FROM Verified 04/09/21 06:44 KNEE IMPLANT Review of Systems ROS Statement: Those systems with pertinent positive or pertinent negative responses have been documented in the HPI. ROS Other: All systems not noted in ROS Statement are negative. Past Medical History Past Medical History: Asthma, COPD, Diabetes Mellitus, GERD/Reflux, Osteoarthritis (OA), Pneumonia, Sleep Apnea/CPAP/BIPAP, Thyroid Disorder Additional Past Medical History / Comment(s): DOES NOT USE CPAP. DAMAGED VOCAL CORDS (POLYPS). IDDM type II, bilateral feet neuropathy, hiatal hernia, superficial blood clots in legs, varicose veins bilaterally, RLS, thyroid nodules, JOHNATHAN-no treatment required, diverticulitis with bowel resection, "dizzy spells" in the past. Peptic ulcer disease. CURRENTLY ON ANTIBX FOR SINUS INFECTION-PT STATES DR. ORANTES AWARE History of Any Multi-Drug Resistant Organisms: None Reported Past Surgical History: Adenoidectomy, Bladder Surgery, Bowel Resection, Joint Replacement, Orthopedic Surgery, Tonsillectomy Additional Past Surgical History / Comment(s): BINA TOTAL KNEE, LT X2. CTR LT HAND; LT ULNAR NERVE REPAIR. VOCAL CORD POLYPS REMOVED. LT ANKLE SPUR, MUSCLE SURG; LT SHOULDER RECONSTRUCTION. COLONOSCOPY 2017(2nd), EGD. D&C, BLADDER SUSPENSION W/ MESH., LOW ANTERIOR SIGMOIG RESECTION 03-24-2017. THYROID BX Past Anesthesia/Blood Transfusion Reactions: Previous Problems w/ Anesthesia, Motion Sickness Additional Past Anesthesia/Blood Transfusion Reaction / Comment(s): Slow to wake up @times Past Psychological History: Anxiety, Depression Smoking Status: Current every day smoker Past Alcohol Use History: None Reported Past Drug Use History: None Reported - Past Family History Mother Family Medical History: Cancer, Deep Vein Thrombosis (DVT) Additional Family Medical History / Comment(s): Mother of esophageal cancer at the age of 62 yrs. Father Family Medical History: Congestive Heart Failure (CHF), Coronary Artery Disease (CAD), Deep Vein Thrombosis (DVT) Additional Family Medical History / Comment(s): Father from heart and lung disease at the age of 67yrs. Sister(s) Family Medical History: Cancer Additional Family Medical History / Comment(s): Ovarian cancer. General Exam - General Exam Comments Initial Comments: General: Alert, in no acute distress Head: atraumatic normocephalic. Eyes PERRL, EOMI intact, mucous membranes moist Respiratory: Lungs clear to auscultation bilaterally Cardiovascular: Heart rate regular rate and rhythm Abdominal: Soft without guarding or rebound Extremities: Normal inspection with full range of motion and normal capillary refill Neuroogic: alert and oriented 3, CN II-XII intact, able to ambulate with steady gait Skin: warm dry and intact with normal color Limitations: no limitations Course Vital Signs 08/31/22 08/31/22 14:41 17:37 Temperature 98.8 F 97.6 F Pulse Rate 106 H 83 Respiratory 18 16 Rate Blood Pressure 135/87 138/84 O2 Sat by Pulse 97 96 Oximetry Medical Decision Making - Medical Decision Making Was pt. sent in by a medical professional or institution (, PA, FORMULA TECHNICIAN, urgent care, hospital, or correction...) When possible be specific @ -[No] Did you speak to anyone other than the patient for history (EMS, parent, family, police, friend...)? What history was obtained from this source @ -[No] Did you review nursing and triage notes (agree or disagree)? Why? @ -[I reviewed and agree with nursing and triage notes] Were old charts reviewed (outside hosp., previous admission, EMS record, old EKG, old radiological studies, urgent care reports/EKG's, correction records)? Report findings @ -[No old charts were reviewed] Differential Diagnosis (chest pain, altered mental status, abdominal pain women, abdominal pain men, vaginal bleeding, weakness, fever, dyspnea, syncope, headache, dizziness, GI bleed, back pain, seizure, CVA, palpatations, mental health, musculoskeletal)? @ -[not applicable] EKG interpreted by me (3pts min.). @ -[As above] X-rays interpreted by me (1pt min.). @ -Cervical spine x-ray negative for any evidence of fracture or dislocation CT interpreted by me (1pt min.). @ -[None done] U/S interpreted by me (1pt. min.). @ -[None done] What testing was considered but not performed or refused? (CT, X-rays, U/S, labs)? Why? @ -[None] What meds were considered but not given or refused? Why? @ -[None] Did you discuss the management of the patient with other professionals (professionals i.e. Dr., PA, FORMULA TECHNICIAN, lab, RT, psych nurse, social worker school, preservative filler machine operator, teacher, press officer, immigration case worker)? Give summary @ -[No] Was smoking cessation discussed for >3mins.? @ -[No] Was critical care preformed (if so, how long)? @ -[No] Were there social determinants of health that impacted care today? How? (Homelessness, low income, unemployed, alcoholism, drug addiction, transportation, low edu. Level, literacy, decrease access to med. care, [facility], rehab)? @ -[No] Was there de-escalation of care discussed even if they declined (Discuss DNR or withdrawal of care, Hospice)? DNR status @ -[No] What co-morbidities impacted this encounter? (DM, HTN, Smoking, COPD, CAD, Cancer, CVA, ARF, Chemo, Hep., AIDS, mental health diagnosis, sleep apnea, morbid obesity)? @ -[None] Was patient admitted / discharged? Hospital course, mention meds given and route, prescriptions, significant lab abnormalities, going to OR and other pertinent info. @ -Discharged. This is a 57-year-old female who presents to the emergency department with neck pain. Patient had a thorough history and physical exam performed on the ED. Physical exam is essentially unremarkable heart rate regular rate and rhythm. Auscultation bilaterally abdomen soft nontender no paraspinal tenderness , no step-off. Patient able to ambulate with a steady gait. Patient had imaging performed which was negative. I discussed the results in detail with the patient verbalized understanding all questions were addressed. She was given Toradol and Lidoderm patch with mild symptomatic relief on the emergency department she should return precautions were discussed at length. She was discharged in stable condition. Case discussed with JOSE LUIS Alcantar Who agrees with plan Undiagnosed new problem with uncertain prognosis? @ -[No] Drug Therapy requiring intensive monitoring for toxicity (Heparin, Nitro, Insulin, Cardizem)? @ -[No] Were any procedures done? @ -[No] Diagnosis/symptom? @ -neck pain Acute, or Chronic, or Acute on Chronic? @ -Acute Uncomplicated (without systemic symptoms) or Complicated (systemic symptoms)? @ -uncomplicated Side effects of treatment? @ -[No] Exacerbation, Progression, or Severe Exacerbation? @ -[No] Poses a threat to life or bodily function? How? (Chest pain, [place], [place], pneumonia, PE, COPD, DKA, ARF, appy, cholecystitis, CVA, Diverticulitis, Homicidal, Suicidal, threat to staff... and all critical care pts) @ -low likelihood Disposition Clinical Impression: Strain of neck muscle Disposition: HOME SELF-CARE Condition: Stable Instructions (If sedation given, give patient instructions): Cervical Sprain (ED) Additional Instructions: These return to the nearest emergency department if symptoms worsen or persist Prescriptions: Lidocaine 5% Patch [Lidoderm 5% Patch] 1 patch TOPICAL DAILY #7 patch Ketorolac [Toradol] 10 mg PO Q8HR #15 tab Is patient prescribed a controlled substance at d/c from ED?: No Referrals: Dana Akbar MD [Primary Care Provider] - 1-2 days Time of Disposition: 19:27
--- NOTE | 2022-08-31 16:10 | XR ---
EXAMINATION TYPE: XR cervical spine comp DATE OF EXAM: 08/31/2022 CLINICAL HISTORY: pain COMPARISON: NONE TECHNIQUE: Frontal, lateral, oblique, swimmers, and open mouth view of the cervical spine are obtaine d. FINDINGS: The cervical spine is visualized in its entirety from C1 thru the top of T1 level. It is s atisfactory in alignment without evidence of acute fracture or dislocation. The pre-vertebral soft t issue appears within normal limits. Disc spaces are well preserved. The C1-C2 articulation is unremar kable on the open mouth view. The oblique images are within normal limits. IMPRESSION: No acute fracture or dislocation is seen in the cervical spine .ICD 10 NO FRACTURE, INITIAL EVALUATION
[2022-08-31 17:38] VITALS: BP 138/84; PULSE 83; RESP 16; TEMP 97.6
== END 2022-08-31 17:38 | disposition home or self-care (01) ==
LOC: EC 14:35
DX: S16.1XXA Strain of muscle, fascia and tendon at neck level, initial encounter (principal); J44.9 Chronic obstructive pulmonary disease, unspecified; E11.9 Type 2 diabetes mellitus without complications; K21.9 Gastro-esophageal reflux disease without esophagitis; M19.90 Unspecified osteoarthritis, unspecified site; F41.9 Anxiety disorder, unspecified; F32.A Depression, unspecified; F17.200 Nicotine dependence, unspecified, uncomplicated; Z88.8 Allergy status to other drugs, medicaments and biological substances; Z79.4 Long term (current) use of insulin; Z79.899 Other long term (current) drug therapy; X58.XXXA Exposure to other specified factors, initial encounter
CPT/HCPCS: 72050; 99283; 96372; J1885

== ENCOUNTER 2023-01-13 17:23 | Emergency (ER) | payer MEDICARE, OTHER ==
[2023-01-13 17:36] VITALS: RESP 18
--- NOTE | 2023-01-13 18:29 | ED ---
General Adult HPI - General Chief complaint: Skin/Abscess/Foreign Body Stated complaint: lump on back neck Time Seen by Provider: 01/13/23 17:34 Source: patient Mode of arrival: ambulatory Limitations: no limitations - History of Present Illness Initial comments: 57-year-old female presenting with chief complaint of painful lump to the back of the neck. Patient first noticed this lump in May and states that she thought nothing of it. She states that for a few days it has been sore. She was encouraged by her children to get evaluated. No difficulty breathing or swallowing. No fevers or chills. No URI like symptoms. No nausea or vomiting. No numbness, tingling, weakness. Patient is a smoker, she smokes about a pack of cigarettes every 3 days. 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 Walsh regarding this and has a follow-up appointment in January. - Related Data Home Medications Medication Instructions Recorded Confirmed Insulin Glargine [Lantus Vial] 50 - 80 unit SQ HS 05/19/14 04/09/21 INSULIN ASPART (NovoLOG) [NovoLOG See Protocol SQ AC-TID 12/24/16 04/09/21 (formulary)] Ibuprofen [Motrin] 800 mg PO DAILY PRN 04/19/18 04/08/21 Albuterol Inhaler [Ventolin Hfa 2 puff INHALATION RT-Q6H PRN 09/29/18 04/09/21 Inhaler] Amoxic-Pot Clav 875-125Mg 1 tab PO BID 04/02/21 04/09/21 [Augmentin 875-125] Cyclobenzaprine [Flexeril] 10 mg PO TID PRN 04/02/21 04/09/21 ALPRAZolam [Xanax] 1 mg PO DAILY PRN 04/07/21 04/09/21 Previous Rx's Medication Instructions Recorded Acetaminophen Tab [Tylenol] 650 mg PO Q6H #30 tab 04/09/21 Docusate [Colace] 100 mg PO BID #20 capsule 04/09/21 oxyCODONE HCL [OxyIR] 5 mg PO Q6H PRN 3 Days #10 tab 04/09/21 Ketorolac [Toradol] 10 mg PO Q8HR #15 tab 08/31/22 Lidocaine 5% Patch [Lidoderm 5% 1 patch TOPICAL DAILY #7 patch 08/31/22 Patch] Allergies Allergy/AdvReac Type Severity Reaction Status Date / Time nickel [Nickel] AdvReac PAIN FROM Verified 01/13/23 17:27 KNEE IMPLANT Review of Systems ROS Statement: Those systems with pertinent positive or pertinent negative responses have been documented in the HPI. ROS Other: All systems not noted in ROS Statement are negative. Past Medical History Past Medical History: Asthma, COPD, Diabetes Mellitus, GERD/Reflux, Osteoarthritis (OA), Pneumonia, Sleep Apnea/CPAP/BIPAP, Thyroid Disorder Additional Past Medical History / Comment(s): DOES NOT USE CPAP. DAMAGED VOCAL CORDS (POLYPS). IDDM type II, bilateral feet neuropathy, hiatal hernia, superficial blood clots in legs, varicose veins bilaterally, RLS, thyroid nodules, JOHNATHAN-no treatment required, diverticulitis with bowel resection, "dizzy spells" in the past. Peptic ulcer disease. CURRENTLY ON ANTIBX FOR SINUS INFECTION-PT STATES DR. ORANTES AWARE History of Any Multi-Drug Resistant Organisms: None Reported Past Surgical History: Adenoidectomy, Bladder Surgery, Bowel Resection, Joint Replacement, Orthopedic Surgery, Tonsillectomy Additional Past Surgical History / Comment(s): BINA TOTAL KNEE, LT X2. CTR LT HAND; LT ULNAR NERVE REPAIR. VOCAL CORD POLYPS REMOVED. LT ANKLE SPUR, MUSCLE SURG; LT SHOULDER RECONSTRUCTION. COLONOSCOPY 2017(2nd), EGD. D&C, BLADDER SUSPENSION W/ MESH., LOW ANTERIOR SIGMOIG RESECTION 03-24-2017. THYROID BX Past Anesthesia/Blood Transfusion Reactions: Previous Problems w/ Anesthesia, Motion Sickness Additional Past Anesthesia/Blood Transfusion Reaction / Comment(s): Slow to wake up @times Past Psychological History: Anxiety, Depression Smoking Status: Current every day smoker Past Alcohol Use History: None Reported Past Drug Use History: None Reported - Past Family History Mother Family Medical History: Cancer, Deep Vein Thrombosis (DVT) Additional Family Medical History / Comment(s): Mother of esophageal cancer at the age of 62 yrs. Father Family Medical History: Congestive Heart Failure (CHF), Coronary Artery Disease (CAD), Deep Vein Thrombosis (DVT) Additional Family Medical History / Comment(s): Father from heart and lung disease at the age of 67yrs. Sister(s) Family Medical History: Cancer Additional Family Medical History / Comment(s): Ovarian cancer. General Exam Limitations: no limitations General appearance: alert, in no apparent distress Head exam: Present: atraumatic, normocephalic, normal inspection Eye exam: Present: normal appearance, EOMI Neck exam: Present: normal inspection, full ROM, other (Painful nickel-sized lump to the back of) Respiratory exam: Present: normal lung sounds bilaterally. Absent: respiratory distress, wheezes, rales, rhonchi, stridor Cardiovascular Exam: Present: regular rate, normal rhythm, normal heart sounds. Absent: systolic murmur, diastolic murmur, rubs, gallop, clicks Neurological exam: Present: alert, oriented X3 Psychiatric exam: Present: normal affect, normal mood Skin exam: Present: warm, dry, intact, normal color. Absent: rash Course Vital Signs 01/13/23 01/13/23 17:24 19:47 Temperature 97.9 F 98.0 F Pulse Rate 111 H 93 Respiratory 18 18 Rate Blood Pressure 132/72 O2 Sat by Pulse 99 97 Oximetry Medical Decision Making - Medical Decision Making Was pt. sent in by a medical professional or institution (Dr. PA, PRINCIPLE INDUSTRIAL HYGIENIST, urgent care, hospital, or fdc...) When possible be specific @ -No Did you speak to anyone other than the patient for history (EMS, parent, family, police, friend...)? What history was obtained from this source @ -No Did you review nursing and triage notes (agree or disagree)? Why? @ -I reviewed and agree with nursing and triage notes Were old charts reviewed (outside hosp., previous admission, EMS record, old EKG, old radiological studies, urgent care reports/EKG's, fdc records)? Report findings @ -No old charts were reviewed Differential Diagnosis (chest pain, altered mental status, abdominal pain women, abdominal pain men, vaginal bleeding, weakness, fever, dyspnea, syncope, headache, dizziness, GI bleed, back pain, seizure, CVA, palpatations, mental health, musculoskeletal)? @ -Differential includes lymph node, cyst, abscess, malignancy, this is not an all inclusive list EKG interpreted by me (3pts min.). @ -As above X-rays interpreted by me (1pt min.). @ -None done CT interpreted by me (1pt min.). @ -None done U/S interpreted by me (1pt. min.). @ -Nonspecific cystic structure in the posterior neck with posterior acoustic enhancement. This is deep to the skin. No internal enhancement. CT imaging with IV contrast recommended subacutely compared to patient's 05/17/2018 PET/computed tomography scan. What testing was considered but not performed or refused? (CT, X-rays, U/S, labs)? Why? @ -I offered to perform a computed tomography scan, the patient states that she has a scheduled CT with contrast for tomorrow of the abdomen and pelvis for surgical follow-up. She would prefer to have the CT performed tomorrow with her abdomen and pelvis CT. She is provided with a prescription for outpatient CT with results forwarded to Dr. May What meds were considered but not given or refused? Why? @ -None Did you discuss the management of the patient with other professionals (professionals i.e. ., PA, PRINCIPLE INDUSTRIAL HYGIENIST, lab, RT, psych nurse, social science research assistant, band bias machine operator, teacher, chairman & chief executive officer, major case detective)? Give summary @ -No Was smoking cessation discussed for >3mins.? @ -No Was critical care preformed (if so, how long)? @ -No Were there social determinants of health that impacted care today? How? (Homelessness, low income, unemployed, alcoholism, drug addiction, transportation, low edu. Level, literacy, decrease access to med. care, longterm, rehab)? @ -No Was there de-escalation of care discussed even if they declined (Discuss DNR or withdrawal of care, Hospice)? DNR status @ -No What co-morbidities impacted this encounter? (DM, HTN, Smoking, COPD, CAD, Cancer, CVA, ARF, Chemo, Hep., AIDS, mental health diagnosis, sleep apnea, morbid obesity)? @ -None Was patient admitted / discharged? Hospital course, mention meds given and route, prescriptions, significant lab abnormalities, going to OR and other pertinent info. @ -57-year-old female presenting with chief complaint of painful lump to the back and neck. This lump has been there for several months, however the patient states that today it is painful. History and physical exam are conducted. Ultrasound was obtained which shows a nonspecific cystic structure. CT is recommended. I educated the patient on today's findings. The patient states that she has a scheduled CT of the abdomen and pelvis tomorrow as a follow-up with her surgeon, she would prefer to have CT of the neck performed tomorrow as well to avoid contrast 2 times in a short period of time. I believe this is reasonable. Patient states that she has a follow-up with her ENT scheduled for January. She is provided with a order for CT of the soft tissue neck with contrast with results forwarded to her ENT. Follow-up with PCP. Report back to ER with any new or worsening symptoms. Discussed return parameters and answered all questions. Patient conveyed verbal understanding and agreed to the plan. I discussed this case in detail with my attending Dr. Herman Undiagnosed new problem with uncertain prognosis? @ -No Drug Therapy requiring intensive monitoring for toxicity (Heparin, Nitro, Insulin, Cardizem)? @ -No Were any procedures done? @ -No Diagnosis/symptom? @ -Nonspecific cystic structure Acute, or Chronic, or Acute on Chronic? @ -Acute Uncomplicated (without systemic symptoms) or Complicated (systemic symptoms)? @ -Uncomplicated Side effects of treatment? @ -No Exacerbation, Progression, or Severe Exacerbation? @ -No Disposition Clinical Impression: Cyst Disposition: HOME SELF-CARE Condition: Fair Instructions (If sedation given, give patient instructions): Cyst (ED) Additional Instructions: Follow-up with PCP and Dr. May. Report back to ER with any new or worsening symptoms. Prescription is provided to you for outpatient CT Is patient prescribed a controlled substance at d/c from ED?: No Referrals: Dana Akbar MD [Primary Care Provider] - 1-2 days Darnell May DO [Doctor of Osteopathic Medicine] - 1-2 days Time of Disposition: 19:29
--- NOTE | 2023-01-13 18:46 | US ---
EXAMINATION TYPE: US thyroid st tissue head/neck DATE OF EXAM: 01/13/2023 COMPARISON: Pet/CT 05/07/2018 CLINICAL INDICATION: Female, 57 years old with history of painful lump @ back of neck; Lump midline p osterior neck since May. Pt states it has gotten bigger and is now painful Technique: Grayscale imaging of the posterior neck. FINDINGS: Anechoic oval area with posterior enhancement seen in area of lump measuring 1.2 x 1.9 x 1.0cm. This area appears nonvascular IMPRESSION: Nonspecific Cystic structure in the posterior neck with posterior acoustic enhancement. This is deep to the skin. No internal enhancement. CT imaging with IV Contrast recommended so it can be compared t o patient's 05/17/2018 PET/CT. There are at least 2 lesions in the posterior neck at that time which a ppear smaller than this lesion. Fusion image 57.
[2023-01-13 20:13] VITALS: BP 132/72; PULSE 93; TEMP 98
== END 2023-01-13 19:56 | disposition home or self-care (01) ==
LOC: EC 17:23
DX: R22.1 Localized swelling, mass and lump, neck (principal); J44.9 Chronic obstructive pulmonary disease, unspecified; E11.9 Type 2 diabetes mellitus without complications; M19.90 Unspecified osteoarthritis, unspecified site; F41.9 Anxiety disorder, unspecified; F32.A Depression, unspecified; F17.200 Nicotine dependence, unspecified, uncomplicated; Z88.8 Allergy status to other drugs, medicaments and biological substances; Z79.4 Long term (current) use of insulin; Z79.899 Other long term (current) drug therapy
CPT/HCPCS: 76536; 99283

== ENCOUNTER → 2023-01-14 | Outpatient (CLI) | payer MEDICARE, OTHER | END | disposition home or self-care (01) | LOC: RADCTMAIN 15:56 | PROVIDERS: ATTEND Emergency Medicine | DX: Z53.9 Procedure and treatment not carried out, unspecified reason (principal) ==

== ENCOUNTER → 2023-01-14 | Outpatient (CLI) | payer MEDICARE, OTHER ==
[2023-01-14 17:52] LABS: African American GFR (CKD) >90 (>60 ml/min/1.73 sqM); Blood Urea Nitrogen 14 mg/dL (7-17); Non-African American GFR(CKD) >90 (>60 ml/min/1.73 sqM)
--- NOTE | 2023-01-15 10:31 | CT ---
EXAMINATION TYPE: CT abdomen pelvis w con DATE OF EXAM: 01/14/2023 COMPARISON: 09/23/2020 HISTORY: LLQ abdominal pain CT DLP: 1589.9 mGycm Automated exposure control for dose reduction was used. CONTRAST: CT scan of the abdomen pelvis is performed with IV Contrast, patient injected with 100 cc mL of Isovu e 300. FINDINGS- LUNG BASES- No significant abnormality is appreciated. LIVER/GB- postcholecystectomy changes. Liver measures 18 cm and mildly enlarged. PANCREAS- No gross abnormality is seen. SPLEEN- No gross abnormality is seen. ADRENALS- No gross abnormality is seen. KIDNEYS/BLADDER- no hydronephrosis nephrolithiasis or renal mass. BOWEL- small hiatal hernia. No evidence of obstruction. No inflammatory changes. There is to be a barriga ture line at the level distal sigmoid colon. Minimal changes of diverticulosis. Appendix normal. LYMPH NODES- No greater than 1cm abdominal or pelvic lymph nodes are appreciated. OSSEOUS STRUCTURES- No significant abnormality is seen. OTHER- aorta of normal caliber. Heterogeneous attenuation within the bladder likely related to contr ast staining from the collecting system correlate with urinalysis if clinically warranted . There is subcutaneous varicosities in the groin bilaterally greater on the right. Calcifications in the right adnexa likely related to the right ovary stable. Soft tissue nodule left adnexa likely related ovary measuring 1.9 cm in stable in size from prior exam. IMPRESSION- 1. No acute process. Postsurgical changes distal sigmoid colon with no evidence of obstruction or inf lammation. 2. Hepatomegaly correlate with LFTs. 3. Small hiatal hernia. 4. Postcholecystectomy.
--- NOTE | 2023-01-15 13:00 | CT ---
EXAMINATION TYPE: CT soft tissue neck w con DATE OF EXAM: 01/14/2023 COMPARISON: None HISTORY: Lump on posterior neck CT DLP: 557.1 mGycm CONTRAST: Patient injected with 65 cc mL of Isovue 300. TECHNIQUE: Axial images at 3 mm thick sections. Reconstructed images in the coronal plane and sagitt al plane are reviewed. FINDINGS: Limited CT sections are obtained the lung apices. The lung apices appear clear. CT neck: The torus tubarius and fossa of Rosenmuller are normal. Certified Wellness Program Coordinator spaces are normal. Mild mucosal thickening is within ethmoid air cells bilaterally. Parotid glands appear normal and symmetrical. Submandibular glands, are normal. Parapharyngeal spac es are normal. No suspicious adenopathy is evident. Multiple small scattered lymph nodes are present The hypopharynx appears within normal limits. Vocal cord level appear symmetrical. Subglottic airway is normal.7 Thyroid as visualized is hypertrophied. Osseous structures are normal. Prevertebral space is normal. Vertebral body alignment is preserved. There is a subcutaneous nodule at the edge of the [id number] posterior neck proximal thorax. Serie s 3 image 30, this measures 1.3 cm. Consider sebaceous cyst. Small lymph nodes are within the occipi jesus regions. IMPRESSION: 1. There may be a sebaceous cyst centrally near the junction of the neck and upper thorax. Clinical c orrelation with the posterior neck mass is recommended. 2. Small occipital neck lymph nodes.
== END | disposition home or self-care (01) ==
LOC: RADCTMAIN 15:59
PROVIDERS: ATTEND Surgery
DX: K44.9 Diaphragmatic hernia without obstruction or gangrene (principal); R16.0 Hepatomegaly, not elsewhere classified; R59.0 Localized enlarged lymph nodes; Z90.49 Acquired absence of other specified parts of digestive tract; Z98.890 Other specified postprocedural states
CPT/HCPCS: 82565; 84520; 70491; 74177; 36415; Q9967

== ENCOUNTER → 2023-09-13 | Outpatient (CLI) | payer MEDICARE, OTHER ==
[2023-09-13 16:01] LABS: ALT 17 U/L (8-44); AST 17 U/L (13-35); Albumin 4.2 g/dL (3.8-4.9); Albumin/Globulin Ratio 1.45 Ratio (1.60-3.17); Alkaline Phosphatase 93 U/L (41-126); Blood Urea Nitrogen 17.2 mg/dL (9.0-27.0); Calcium 9.5 mg/dL (8.7-10.3); Carbon Dioxide 25.9 mmol/L (21.6-31.8); Chloride 104 mmol/L (96-109); Chol/HDL Ratio 3.62 Ratio; Globulin 2.9 g/dL (1.6-3.3); Glucose 242 mg/dL (70-110); LDL Cholesterol,Calculated 111.2 mg/dL (0.0-131.0); Potassium 4.7 mmol/L (3.5-5.5); Sodium 141 mmol/L (135-145); T4, Free (Free Thyroxine) 1.29 ng/dL (0.80-1.80); Total Bilirubin 0.3 mg/dL (0.3-1.2); Total Protein 7.1 g/dL (6.2-8.2)
[2023-09-13 17:02] LABS: Basophils # (A) 0.08 X 10*3/uL (0.00-0.10); Basophils % (A) 1.4 %; Eosinophils # (A) 0.31 X 10*3/uL (0.04-0.35); Eosinophils % (A) 5.3 %; HCT 44.1 % (37.2-46.3); Lymphocytes # (A) 2.61 X 10*3/uL (0.90-5.00); Lymphocytes % (A) 44.9 %; MCH 29.6 pg (27.0-32.0); MCHC 31.7 g/dL (32.0-37.0); MCV 93.2 FL (80.0-97.0); Mean Platelet Volume 10.4 FL (9.5-12.2); Monocytes # (A) 0.45 X 10*3/uL (0.20-1.00); Monocytes % (A) 7.7 %; NRBC Per 100 WBC 0 X 10*3/uL (0.00-0.01); Neutrophils # (A) 2.34 X 10*3/uL (1.80-7.70); Neutrophils % (A) 40.4 %; Platelet Count 296 X 10*3/uL (140-440); RBC 4.73 X 10*6/uL (4.10-5.20); RDW 12.7 % (11.5-14.5); WBC 5.81 X 10*3/uL (4.50-10.00)
[2023-09-13 17:51] LABS: Urine Creatinine 87.1 mg/dL (28.0-217.0)
[2023-09-14 03:05] LABS: HIV 2 AB Non-Reactive (Non-Reactive); HIV AB P24 Non-Reactive (Non-Reactive); HIV P24 AG Non-Reactive (Non-Reactive)
== END | disposition home or self-care (01) ==
LOC: LABWHC1 09-10 13:12
PROVIDERS: ATTEND Pediatrics
DX: Z11.4 Encounter for screening for human immunodeficiency virus [HIV] (principal); Z11.59 Encounter for screening for other viral diseases; E11.42 Type 2 diabetes mellitus with diabetic polyneuropathy; E04.2 Nontoxic multinodular goiter; R06.00 Dyspnea, unspecified; Z79.4 Long term (current) use of insulin
CPT/HCPCS: 36415; 80053; 80061; 82043; 82306; 82570; 83036; 84439; 84443; 84481; 85025; 86803; 87390

== ENCOUNTER → 2023-11-11 | Outpatient (CLI) | payer MEDICARE ==
--- NOTE | 2023-11-11 13:50 | US ---
EXAMINATION TYPE: US thyroid st tissue head/neck DATE OF EXAM: 11/11/2023 COMPARISON: US 2022 CLINICAL INDICATION: Female, 58 years old with history of E042 NONTOXIC GOITER; GLAND SIZE: Right Lobe: 5.6 x 2.4 x 2.4 cm Overall Parenchyma: heterogeneous Left Lobe: 4.9 x 1.7 x 1.8 cm Overall Parenchyma: heterogeneous Isthmus Thickness: 0.6 cm NODULES RIGHT: # of nodules measured on right: 1 larger nodule described below, multiple subcentimeter nodule s seen 1. 2.3 X 1.8 x 1.9 cm, mid, solid or almost completely solid, hypoechoic nodule, which is wider horacio n tall, with smooth margins, without echogenic foci. Prior size: 2.5 x 1.7 x 1.6 cm TR 4 LEFT: # of nodules measured on left: 1 larger nodule described below, multiple subcentimeter nodules seen 1. 1.7 X 1.2 x 1.2 cm, mid, solid or almost completely solid, hypoechoic nodule, which is taller th an wide, with smooth margins, without echogenic foci. TR 4 Prior size: 1.6 x 1.2 x 1.4 cm ISTHMUS: # of nodules measured in the isthmus: 0 Bilateral neck scanned, no evidence of lymphadenopathy. IMPRESSION: Stable bilateral thyroid nodules. Both thyroid nodules do meet the ACR guidelines for FNA if that has not already been performed. 2017 ACR TI-RADS LEVEL: TR-RADS 4 - Moderately Suspicious: Follow if > 1 cm, FNA if > 1.5 cm *Highest TI-RADS level nodule reported
--- NOTE | 2023-11-11 17:39 | CA ---
Transthoracic Echo Report Name: Nina Barboza Age: 58 Gender: F : 1965 Exam Date: 11/11/2023 11:42 Exam Location: [facility] Ht (in): 63 Wt (lb): 230 Ordering Physician: Aly Antonio MD Attending/Referring Phys: Johana Garza [facility] Life Science Research Assistant Aliyah Whitaker RDCS Procedure CPT: Indications: [id number] dyspnea Cardiac Hx: Technical Quality: Good Contrast 1: Total Dose (mL): Contrast 2: Total Dose (mL): MEASUREMENTS (Male / Female) Normal Values 2D ECHO LV Diastolic Diameter PLAX 5.0 cm 4.2 - 5.9 / 3.9 - 5.3 cm LV Systolic Diameter PLAX 3.4 cm IVS Diastolic Thickness 1.2 cm 0.6 - 1.0 / 0.6 - 0.9 cm LVPW Diastolic Thickness 1.2 cm 0.6 - 1.0 / 0.6 - 0.9 cm LV Relative Wall Thickness 0.5 RV Internal Dim ED PLAX 3.0 cm LA Systolic Diameter LX 4.0 cm 3.0 - 4.0 / 2.7 - 3.8 cm LV Diastolic Volume MOD 4C 95.1 cm??? LV Systolic Volume MOD 4C 46.8 cm??? LV Ejection Fraction MOD 4C 50.8 % LV Cardiac Index MOD 4C 1769.8 cm???/min???m??? LV Diastolic Length 4C 9.2 cm LV Systolic Length 4C 7.9 cm LV Diastolic Volume MOD 2C 79.0 cm??? LV Systolic Volume MOD 2C 45.3 cm??? LV Ejection Fraction MOD 2C 42.7 % LV Cardiac Index MOD 2C 1236.6 cm???/min???m??? LV Diastolic Length 2C 8.2 cm LV Systolic Length 2C 7.1 cm M-MODE Aortic Root Diameter MM 3.5 cm AV Cusp Separation MM 2.1 cm DOPPLER AV Peak Velocity 130.6 cm/s AV Peak Gradient 6.8 mmHg MV Area PHT 2.9 cm??? Mitral E Point Velocity 67.4 cm/s Mitral A Point Velocity 92.0 cm/s Mitral E to A Ratio 0.7 MV Deceleration Time 261.3 ms FINDINGS Left Ventricle Left ventricular ejection fraction is estimated at 50-55 %. Mildly increased septal wall thickness. Mildly increased posterior wall thickness. Left ventricular cavity size normal. Right Ventricle Normal right ventricular size and function. Unable to estimate the right ventricular systolic pressure. Right Atrium Normal right atrial size. No right atrial thrombus or mass seen. Left Atrium Mildly increased left atrial diameter. No left atrial thrombus or mass present. Mitral Valve Structurally normal mitral valve. Mild mitral regurgitation. Aortic Valve Trileaflet aortic valve. No aortic valve stenosis or regurgitation. Tricuspid Valve Structurally normal tricuspid valve. Mild tricuspid regurgitation. Pulmonic Valve Structurally normal pulmonic valve. No pulmonic regurgitation. Pericardium No pericardial or pleural effusion. Aorta Normal size aortic root and proximal ascending aorta. CONCLUSIONS Normal EF 55%. Mild LVH. Previewed by: Dr. Markos Banda MD (Electronically Signed) Final Date: 11 November 2023 17:38
--- NOTE | 2023-11-14 17:01 | MM ---
Reason for Exam: Screening (asymptomatic). Last mammogram was performed 5 year(s) and 8 month(s) ago. Patient History: Menarche at age 10. First Full-Term at age 18. Postmenopausal. Other cancer. Maternal grandmother had breast cancer. Mother had breast cancer, age 40. Risk Values: Bhargavi 5 year model risk: 2.8%. NCI Lifetime model risk: 14.8%. Prior Study Comparison: 03/28/2018 Bilateral Diagnostic Mammogram, [facility]. Tissue Density: There are scattered areas of fibroglandular density. Findings: Analyzed By CAD. There is no suspicious group of microcalcifications or new suspicious mass in either breast. Overall Assessment: Negative, BI-RAD 1 Management: Screening Mammogram of both breasts in 1 year. . Patient should continue monthly self-breast exams. A clinical breast exam by your physician is recommended on an annual basis. This exam should not preclude additional follow-up of suspicious palpable abnormalities. Note on Bhargavi scores and lifetime risk: 1. A Bhargavi score greater than 3% is considered moderate risk. If this is the case, consider specialist referral to assess eligibility for a risk reducing agent. 2. If overall lifetime risk for the development of breast cancer is 20% or higher, the patient may qualify for future screening with alternating mammogram and breast MRI. [facility], , 11/14/2023 4:57 PM. Electronically signed and approved by: Shakila Martin M.D. Radiologist
== END | disposition home or self-care (01) ==
LOC: RADECHMAIN 10:52
PROVIDERS: ATTEND Pediatrics
DX: Z12.31 Encounter for screening mammogram for malignant neoplasm of breast (principal); R06.00 Dyspnea, unspecified; R00.0 Tachycardia, unspecified; E04.2 Nontoxic multinodular goiter; Z78.0 Asymptomatic menopausal state; Z80.3 Family history of malignant neoplasm of breast
CPT/HCPCS: 76536; 77063; 77067; 93306

== ENCOUNTER → 2024-01-24 | Outpatient (CLI) | payer MEDICARE ==
[2024-01-24 16:18] LABS: African American GFR (CKD) >90 (>60 ml/min/1.73 sqM); Blood Urea Nitrogen 14 mg/dL (7-17); Non-African American GFR(CKD) >90 (>60 ml/min/1.73 sqM)
--- NOTE | 2024-01-24 16:58 | CT ---
EXAMINATION TYPE: CT chest w con DATE OF EXAM: 01/24/2024 4:45 PM COMPARISON: Previous CT abdomen/pelvis 01/14/2023. CLINICAL INDICATION: Female, 58 years old with history of R91.8; [facility], States that there was a spot fo und on right lower lung TECHNIQUE: Multiple axial images were obtained through the chest. Sagittal and coronal reformats were created for review. MIP was performed on a separate workstation. Contrast used:100 mL of Isovue [address] DLP: 534.9 mGycm, Automated exposure control for dose reduction was used. FINDINGS: LUNGS/ PLEURA: No acute focal consolidation. No pleural effusion or pneumothorax. Focal region of lisseth e-in-bud nodularity in the subpleural aspect of the right lower lobe (series 4 image 37), new from pr evious study dated 01/14/2023. Small 3 mm nodule in the subpleural aspect of the left lower lobe (travis ge 40). Otherwise, no suspicious pulmonary nodule or pulmonary mass identified. No pleural effusion o r pneumothorax. AIRWAY: Patent and unremarkable. HEART: Size within normal limits. MEDIASTINUM: No gross evidence of adenopathy. VASCULATURE: No aortic aneurysm. MUSCULOSKELETAL: No acute osseous abnormalities SOFT TISSUES/LYMPH NODES: Unremarkable. LOWER NECK: No significant findings. UPPER ABDOMEN: No acute abnormality. Hepatic steatosis and a previous cholecystectomy. IMPRESSION: Focal region of tree-in-bud nodularity in the subpleural right lower lobe, most compatible with an in fectious or inflammatory bronchiolitis. Correlation with any recent outside imaging if available. [place] are new from prior CT abdomen/pelvis dated 09/13/2022. [facility], , 01/24/2024 4:56 PM
[2024-01-24 18:45] LABS: Chol/HDL Ratio 3.88 Ratio; LDL Cholesterol,Calculated 78.1 mg/dL (0.0-131.0)
--- NOTE | 2024-01-25 11:43 | XR ---
EXAMINATION TYPE: XR cervical spine 5 views comp, XR Hip 2 views RT and AP Pelvis DATE OF EXAM: 01/24/2024 3:49 PM COMPARISON: 08/31/2022 CLINICAL INDICATION: Female, 58 years old with history of M54.2, M25.551, FINDINGS: Cervical spine: No predental space widening or prevertebral soft tissue swelling. Mild anterior endplate spondylosis lower cervical spine. Disc interspaces are relatively maintained. Alignment is preserved. Moderate fa cet arthropathy throughout. There may be mild bony neuroforaminal narrowing scattered on the right si de. Normal odontoid view. Pelvis and right hip: SI joints appear symmetric and intact. There is osteitis pubis. Hips appear symmetric with preserved joint space. Small pelvic fluid limits. No acute fracture, subluxation, dislocation. IMPRESSION: 1. Cervical spine: Moderate hypertrophic facet arthropathy throughout. Variable mild bony neuroforami nal narrowing in the cervical spine on the right side. No malalignment or prevertebral soft tissue sw elling. 2. Pelvis and right hip: Osteitis pubis. No acute osseous abnormality seen. [facility], , 01/25/2024 11:40 AM
== END | disposition home or self-care (01) ==
LOC: RADCTMAIN 14:38
PROVIDERS: ATTEND Pediatrics
DX: R91.8 Other nonspecific abnormal finding of lung field (principal)
CPT/HCPCS: 80061; 82565; 84520; 83036; 72050; 73502; 71260; 36415; Q9967

== ENCOUNTER → 2024-03-02 | Outpatient (CLI) | payer MEDICARE ==
--- NOTE | 2024-03-02 13:51 | MR ---
EXAMINATION TYPE: MR shoulder RT wo con DATE OF EXAM: 03/02/2024 11:40 AM COMPARISON: Outside radiograph 02/18/2024 CLINICAL INDICATION: Female, 59 years old with history of M25.511 R shoulder pain, Right shoulder elena n x 1 yr S/P fall. TECHNIQUE: Multiplanar, multisequence imaging of the right shoulder is performed without contrast. FINDINGS: Thickening and heterogeneity of the intracapsular portion of the lung and biceps tendon. Mi ld fluid along the bicipital groove. Thickening and heterogeneity of the subscapularis tendon with prominent cystic change at the lesser t uberosity and a small intrasubstance tear at the inferior third fibers. The majority of the subscapul aiyana tendon remains intact. There is moderate degenerative change of the acromioclavicular joint with joint space narrowing, join t effusion, subchondral cystic change, and marginal spurring. Mild abutment onto the underlying myote ndinous junction of the supraspinatus with trace bursal effusion. Some mild bursal sided fraying of the supraspinous tendon with scattered intrasubstance change. No high-grade partial or full thickness tear of either supraspinatus or infraspinous tendons. No atrophy of the rotator cuff musculature. There is abnormal signal within the superior labrum extending back to the superior aspect of the post erior labrum. No para labral cyst. Moderate thinning of glenoid articular cartilage especially along the anterior inferior aspect. Mild to moderate irregular cartilage thinning throughout the humeral head articular cartilage. Small, phys iologic joint effusion. No Hill-Sachs deformity or os acromiale. Patchy red marrow hyperplasia is present. This can be seen i n setting of anemia, obesity, smoking, chronic disease. IMPRESSION: 1. Diffuse rotator cuff tendinosis with scattered bursal sided fraying. Small intrasubstance tear of the inferior third fibers of the subscapularis tendon. No high-grade partial or full-thickness rotato r cuff tear. 2. Mild glenohumeral joint OA with a superior labral tear. 3. Moderate AC joint OA with mild subacromial impingement. 4. Moderate intracapsular long head biceps tendinosis. Mild tenosynovitis. [facility], , 03/02/2024 1:49 PM
== END | disposition home or self-care (01) ==
LOC: RADMRIMAIN 11:06
PROVIDERS: ATTEND Orthopaedic Surgery
DX: M67.813 Other specified disorders of tendon, right shoulder (principal); M19.011 Primary osteoarthritis, right shoulder; M25.811 Other specified joint disorders, right shoulder; M65.911 Unspecified synovitis and tenosynovitis, right shoulder

== ENCOUNTER → 2024-06-09 | Outpatient (CLI) | payer MEDICARE, OTHER ==
[2024-06-09 15:04] LABS: Appearance,Urine Cloudy (Clear); Bilirubin,Urine Negative (Negative); Blood,Urine Negative (Negative); Budding Yeast,Urine Many /hpf; Color,Urine Light Yellow; Glucose,Urine (UA) 4+ (Negative); Ketones,Urine Negative (Negative); Leukocyte Esterase,Urine Moderate (Negative); Nitrite,Urine Negative (Negative); PH, Urine 5.5 (5.0-8.0); Protein,Urine Negative (Negative); RBC,Urine 3 /hpf (0-5); Specific Gravity,Urine 1.024 (1.001-1.035); Squamous Epithelial Cell,Urine 1 /hpf (0-4); Urobilinogen,Urine <2.0 mg/dL (<2.0); WBC,Urine 43 /hpf (0-5)
[2024-06-09 18:47] LABS: Basophils # (A) 0.07 X 10*3/uL (0.00-0.10); Eosinophils # (A) 0.21 X 10*3/uL (0.04-0.35); Eosinophils % (A) 2.9 %; HCT 44.8 % (37.2-46.3); HGB 14.2 g/dL (12.0-15.0); Lymphocytes # (A) 2.83 X 10*3/uL (0.90-5.00); Lymphocytes % (A) 38.6 %; MCH 29.2 pg (27.0-32.0); MCHC 31.7 g/dL (32.0-37.0); Mean Platelet Volume 9.9 FL (9.5-12.2); Monocytes # (A) 0.41 X 10*3/uL (0.20-1.00); Monocytes % (A) 5.6 %; NRBC Per 100 WBC 0 X 10*3/uL (0.00-0.01); Neutrophils # (A) 3.79 X 10*3/uL (1.80-7.70); Neutrophils % (A) 51.6 %; Platelet Count 347 X 10*3/uL (140-440); RBC 4.87 X 10*6/uL (4.10-5.20); RDW 13.2 % (11.5-14.5); WBC 7.33 X 10*3/uL (4.50-10.00)
[2024-06-09 19:11] LABS: ALT 19 U/L (8-44); AST 19 U/L (13-35); Albumin 4.2 g/dL (3.8-4.9); Albumin/Globulin Ratio 1.31 Ratio (1.60-3.17); Alkaline Phosphatase 100 U/L (41-126); Blood Urea Nitrogen 15.5 mg/dL (9.0-27.0); Calcium 9.6 mg/dL (8.7-10.3); Carbon Dioxide 25.9 mmol/L (21.6-31.8); Chloride 103 mmol/L (96-109); Globulin 3.2 g/dL (1.6-3.3); Glucose 235 mg/dL (70-110); Potassium 4.6 mmol/L (3.5-5.5); Sodium 140 mmol/L (135-145); Total Bilirubin 0.2 mg/dL (0.3-1.2); Total Protein 7.4 g/dL (6.2-8.2)
== END | disposition home or self-care (01) ==
LOC: LABWHC1 12:35
PROVIDERS: ATTEND Family Medicine
DX: E11.42 Type 2 diabetes mellitus with diabetic polyneuropathy (principal); G25.2 Other specified forms of tremor; R30.0 Dysuria; Z79.4 Long term (current) use of insulin
CPT/HCPCS: 36415; 80053; 81001; 82607; 82746; 83036; 84439; 84443; 85025; 87086

== ENCOUNTER 2024-06-15 19:19 | Emergency (ER) | payer MEDICARE, OTHER ==
[2024-06-15 19:23] VITALS: TEMP 97.7
[2024-06-15 19:36] LABS: Glucose,Whole Blood 181 mg/dL (70-110)
[2024-06-15] MEDS: IPRATROPIUM-ALBUTEROL 3 ML NEB INHALATION STA ×2 (20:13→23:22)
[2024-06-15 20:22] LABS: Basophils # (A) 0.09 10*3/uL (0.00-0.10); Eosinophils # (A) 0.32 10*3/uL (0.04-0.35); Eosinophils % (A) 3.5 %; HCT 42.7 % (37.2-46.3); HGB 14.3 g/dL (12.0-15.0); Lymphocytes # (A) 3.58 10*3/uL (0.90-5.00); Lymphocytes % (A) 38.7 %; MCH 29.8 pg (27.0-32.0); MCHC 33.5 g/dL (32.0-37.0); Mean Platelet Volume 9.4 fL (9.5-12.2); Monocytes # (A) 0.75 10*3/uL (0.20-1.00); Monocytes % (A) 8.1 %; Neutrophils # (A) 4.49 10*3/uL (1.80-7.70); Neutrophils % (A) 48.4 %; Platelet Count 340 10*3/uL (140-440); RDW 13.3 % (11.5-14.5); WBC 9.26 10*3/uL (4.50-10.00)
[2024-06-15] MEDS: methylPREDNISolone SOD SUCCI 125 MG/2 ML VIAL IV STA (20:27)
[2024-06-15 20:40] LABS: ALT 30 U/L (4-34); AST 27 U/L (14-36); African American GFR (CKD) >90 (>60 ml/min/1.73 sqM); Albumin 4.3 g/dL (3.5-5.0); Alkaline Phosphatase 88 U/L (38-126); Anion Gap 9 mmol/L; Blood Urea Nitrogen 21 mg/dL (7-17); Carbon Dioxide 25 mmol/L (22-30); Chloride 104 mmol/L (98-107); Glucose 167 mg/dL (74-99); Magnesium 2.2 mg/dL (1.6-2.3); Non-African American GFR(CKD) >90 (>60 ml/min/1.73 sqM); Potassium 4.2 mmol/L (3.5-5.1); Sodium 138 mmol/L (137-145); Total Bilirubin 0.4 mg/dL (0.2-1.3); Total Protein 7.4 g/dL (6.3-8.2)
[2024-06-15 20:46] VITALS: RESP 18
[2024-06-15 20:47] LABS: INR 0.9 (<1.2); Partial Thromboplastin Time 21.5 sec (22.0-30.0)
[2024-06-15 20:47] LABS: Appearance,Urine Clear (Clear); Bilirubin,Urine Negative (Negative); Blood,Urine Negative (Negative); Color,Urine Colorless; Glucose,Urine (UA) 4+ (Negative); Ketones,Urine Negative (Negative); Leukocyte Esterase,Urine Negative (Negative); Nitrite,Urine Negative (Negative); PH, Urine 6.5 (5.0-8.0); Protein,Urine Negative (Negative); Specific Gravity,Urine 1.029 (1.001-1.035); Urobilinogen,Urine <2.0 mg/dL (<2.0)
--- NOTE | 2024-06-15 20:52 | XR ---
EXAMINATION TYPE: XR chest 2V DATE OF EXAM: 06/15/2024 8:45 PM COMPARISON: Multiple prior chest radiograph, most recently dated 02/14/2024. CLINICAL INDICATION: Female, 59 years old with history of difficulty breathing; [facility] TECHNIQUE: XR chest 2V Frontal and lateral views of the chest. FINDINGS: Lungs/Pleura: There is no evidence of pleural effusion, focal consolidation, or pneumothorax. Pulmonary vascularity: Unremarkable. Heart/mediastinum: Cardiomediastinal silhouette is unremarkable. Musculoskeletal: No acute osseous pathology. Other findings: None IMPRESSION: No acute cardiopulmonary disease/process. [facility], , 06/15/2024 8:49 PM
[2024-06-15 20:58] LABS: Influenza A Not Detected (Not Detectd); Influenza B Not Detected (Not Detectd); RSV Not Detected (Not Detectd)
--- NOTE | 2024-06-15 23:06 | ED ---
General Adult HPI - General Chief complaint: Shortness of Breath Stated complaint: Infection, Shortness of Breath Time Seen by Provider: 06/15/24 19:28 Source: patient Mode of arrival: ambulatory Limitations: no limitations - History of Present Illness Initial comments: 59-year-old female presenting with chief complaint of "I just do not feel well". Patient reports that she is feeling weak and short of breath today. She is also having some dizziness. She reports she has had an on and off fever over the past week. She reports that she has had some severe sinus congestion and pressure. She also thinks she may have a UTI, she states that her urine had a strong smell and she has had urgency and frequency. No dysuria or hematuria. She was having some pain in her left side. No nausea vomiting or diarrhea. No chest pain. States she had a mild cough. She was seen by her PCP yesterday and started on doxycycline for her sinus infection and UTI, she has not yet started her medication, as it will be delivered to her home. - Related Data Home Medications Medication Instructions Recorded Confirmed Insulin Glargine (Lantus) [Lantus 50 - 80 unit SQ HS 05/19/14 04/09/21 Vial] INSULIN ASPART (NovoLOG) [NovoLOG See Protocol SQ AC-TID 12/24/16 04/09/21 (formulary)] Ibuprofen [Motrin] 800 mg PO DAILY PRN 04/19/18 04/08/21 Albuterol Inhaler [Ventolin Hfa 2 puff INHALATION RT-Q6H PRN 09/29/18 04/09/21 Inhaler] Amoxic-Pot Clav 875-125Mg 1 tab PO BID 04/02/21 04/09/21 [Augmentin 875-125] Cyclobenzaprine [Flexeril] 10 mg PO TID PRN 04/02/21 04/09/21 ALPRAZolam [Xanax] 1 mg PO DAILY PRN 04/07/21 04/09/21 Previous Rx's Medication Instructions Recorded Acetaminophen Tab [Tylenol] 650 mg PO Q6H #30 tab 04/09/21 Docusate [Colace] 100 mg PO BID #20 capsule 04/09/21 oxyCODONE HCL [OxyIR] 5 mg PO Q6H PRN 3 Days #10 tab 04/09/21 Ketorolac [Toradol] 10 mg PO Q8HR #15 tab 08/31/22 Lidocaine 5% Patch [Lidoderm 5% 1 patch TOPICAL DAILY #7 patch 08/31/22 Patch] Albuterol Sulfate [Albuterol 1 puff PO Q4-6H PRN #8.5 gm 06/15/24 Sulfate Hfa] predniSONE 50 mg PO 5XD #5 tablet 06/15/24 Allergies Allergy/AdvReac Type Severity Reaction Status Date / Time nickel [Nickel] AdvReac PAIN FROM Verified 06/15/24 19:24 KNEE IMPLANT Review of Systems ROS Statement: Those systems with pertinent positive or pertinent negative responses have been documented in the HPI. ROS Other: All systems not noted in ROS Statement are negative. Past Medical History Past Medical History: Asthma, COPD, Diabetes Mellitus, GERD/Reflux, Osteoarthritis (OA), Pneumonia, Sleep Apnea/CPAP/BIPAP, Thyroid Disorder Additional Past Medical History / Comment(s): DOES NOT USE CPAP. DAMAGED VOCAL CORDS (POLYPS). IDDM type II, bilateral feet neuropathy, hiatal hernia, supe rficial blood clots in legs, varicose veins bilaterally, RLS, thyroid nodules, JOHNATHAN-no treatment required, diverticulitis with bowel resection, "dizzy spells" in the past. Peptic ulcer disease. CURRENTLY ON ANTIBX FOR SINUS INFECTION-PT STATES DR. ORANTES AWARE History of Any Multi-Drug Resistant Organisms: None Reported Past Surgical History: Adenoidectomy, Bladder Surgery, Bowel Resection, Joint Replacement, Orthopedic Surgery, Tonsillectomy Additional Past Surgical History / Comment(s): BINA TOTAL KNEE, LT X2. CTR LT HAND; LT ULNAR NERVE REPAIR. VOCAL CORD POLYPS REMOVED. LT ANKLE SPUR, MUSCLE SURG; LT SHOULDER RECONSTRUCTION. COLONOSCOPY 2017(2nd), EGD. D&C, BLADDER SUSPENSION W/ MESH., LOW ANTERIOR SIGMOIG RESECTION 03-24-2017. THYROID BX Past Anesthesia/Blood Transfusion Reactions: Previous Problems w/ Anesthesia, Motion Sickness Additional Past Anesthesia/Blood Transfusion Reaction / Comment(s): Slow to wake up @times Past Psychological History: Anxiety, Depression Smoking Status: Current every day smoker Past Alcohol Use History: None Reported Past Drug Use History: None Reported - Past Family History Mother Family Medical History: Cancer, Deep Vein Thrombosis (DVT) Additional Family Medical History / Comment(s): Mother of esophageal cancer at the age of 62 yrs. Father Family Medical History: Congestive Heart Failure (CHF), Coronary Artery Disease (CAD), Deep Vein Thrombosis (DVT) Additional Family Medical History / Comment(s): Father from heart and lung disease at the age of 67yrs. Sister(s) Family Medical History: Cancer Additional Family Medical History / Comment(s): Ovarian cancer. General Exam Limitations: no limitations General appearance: alert, in no apparent distress Head exam: Present: atraumatic, normocephalic, normal inspection Eye exam: Present: normal appearance, EOMI. Absent: periorbital swelling Neck exam: Present: normal inspection. Absent: meningismus Respiratory exam: Present: rhonchi. Absent: respiratory distress, wheezes, rales, stridor Cardiovascular Exam: Present: regular rate, normal rhythm, normal heart sounds. Absent: systolic murmur, diastolic murmur, rubs, gallop, clicks Neurological exam: Present: alert, oriented X3 Psychiatric exam: Present: normal affect, normal mood Skin exam: Present: warm, dry, normal color Course Vital Signs 06/15/24 06/15/24 06/15/24 19:20 20:10 20:15 Temperature 97.7 F Pulse Rate 118 H 97 Pulse Rate [ Sitting Piano Builder] Pulse Rate [ Standing Piano Builder ] Pulse Rate [ Supine Piano Builder] Respiratory 21 18 Rate Blood Pressure 143/91 Blood Pressure [Right Arm Sitting] Blood Pressure [Right Arm Standing] Blood Pressure [Right Arm Supine] O2 Sat by Pulse 96 Oximetry 06/15/24 06/15/24 06/15/24 20:21 20:45 21:58 Temperature Pulse Rate 96 97 Pulse Rate [ 93 Sitting Piano Builder] Pulse Rate [ 105 H Standing Piano Builder ] Pulse Rate [ 92 Supine Piano Builder] Respiratory 18 18 Rate Blood Pressure 142/74 Blood Pressure 125/74 [Right Arm Sitting] Blood Pressure 124/81 [Right Arm Standing] Blood Pressure 134/86 [Right Arm Supine] O2 Sat by Pulse 99 95 Oximetry 06/15/24 06/15/24 06/15/24 23:15 23:22 23:34 Temperature Pulse Rate 97 95 98 Pulse Rate [ Sitting Piano Builder] Pulse Rate [ Standing Piano Builder ] Pulse Rate [ Supine Piano Builder] Respiratory 18 Rate Blood Pressure 131/65 Blood Pressure [Right Arm Sitting] Blood Pressure [Right Arm Standing] Blood Pressure [Right Arm Supine] O2 Sat by Pulse 96 Oximetry Medical Decision Making - Medical Decision Making Was pt. sent in by a medical professional or institution (EDVIN Marie, ADMISSION NURSE COORDINATOR, urgent care, hospital, or fpc...) When possible be specific @ -No Did you speak to anyone other than the patient for history (EMS, parent, family, police, friend...)? What history was obtained from this source @ -No Did you review nursing and triage notes (agree or disagree)? Why? @ -I reviewed and agree with nursing and triage notes Were old charts reviewed (outside hosp., previous admission, EMS record, old EKG, old radiological studies, urgent care reports/EKG's, fpc records)? Report findings @ -No old charts were reviewed Differential Diagnosis (chest pain, altered mental status, abdominal pain women, abdominal pain men, vaginal bleeding, weakness, fever, dyspnea, syncope, headache, dizziness, GI bleed, back pain, seizure, CVA, palpatations, mental health, musculoskeletal)? @ -MDM Differential Dyspnea: Coronary syndrome, arrhythmia, tamponade, asthma, COPD, pulmonary embolism, pneumonia, pneumothorax, pulmonary effusion, anaphylaxis, diabetic ketoacidosis, flailed chest, pulmonary contusion, diaphragmatic rupture, anemia, neuromuscular… this is not meant to be an all-inclusive list. EKG interpreted by me (3pts min.). @ -EKG shows sinus tachycardia ventricular rate 106. GA interval 145. QRS 88. QT 310. QTc 372 X-rays interpreted by me (1pt min.). @ -Chest x-ray shows no acute cardiopulmonary disease/process CT interpreted by me (1pt min.). @ -None done U/S interpreted by me (1pt. min.). @ -None done What testing was considered but not performed or refused? (CT, X-rays, U/S, labs)? Why? @ -None What meds were considered but not given or refused? Why? @ -None Did you discuss the management of the patient with other professionals (professionals i.e. EDVIN Marie, ADMISSION NURSE COORDINATOR, lab, RT, psych nurse, psychologist social, printing manager, teacher, data officer, major case detective)? Give summary @ -No Was smoking cessation discussed for >3mins.? @ -No Was critical care preformed (if so, how long)? @ -No Were there social determinants of health that impacted care today? How? (Homelessness, low income, unemployed, alcoholism, drug addiction, t ransportation, low edu. Level, literacy, decrease access to med. care, group home, rehab)? @ -No Was there de-escalation of care discussed even if they declined (Discuss DNR or withdrawal of care, Hospice)? DNR status @ -No What co-morbidities impacted this encounter? (DM, HTN, Smoking, COPD, CAD, Cance r, CVA, ARF, Chemo, Hep., AIDS, mental health diagnosis, sleep apnea, morbid obesity)? @ -None Was patient admitted / discharged? Hospital course, mention meds given and route, prescriptions, significant lab abnormalities, going to OR and other pertinent info. @ -59-year-old female present with chief complaint of "I just do not feel well". She is feeling short of breath and weak today. History and physical examination are conducted. Wheezes are heard on auscultation. Patient was initially placed on oxygen for comfort, however the patient is not hypoxic. Patient is given DuoNeb and Solu-Medrol. Lab work shows no leukocytosis or anemia. Negative troponin. TSH is WNL. Negative for influenza, RSV, COVID. Chest x-ray shows no acute process. D-dimer 0.31. Patient likely experiencing COPD exacerbation. On reassessment she does report improvement in her symptoms. She is treated with 1 more DuoNeb. Vital signs are stable. She is provided with inhaler and steroids for home. Follow-up with PCP. Report back to ER with any new or worsening symptoms. Discussed return parameters and answered all questions. Patient conveyed verbal understanding and agreed to the plan. I discussed this case in detail with my attending Dr. Melendez Undiagnosed new problem with uncertain prognosis? @ -No Drug Therapy requiring intensive monitoring for toxicity (Heparin, Nitro, Insulin, Cardizem)? @ -No Were any procedures done? @ -No Diagnosis/symptom? @ -COPD exacerbation Acute, or Chronic, or Acute on Chronic? @ -Acute Uncomplicated (without systemic symptoms) or Complicated (systemic symptoms)? @ -uncomplicated Side effects of treatment? @ -No Exacerbation, Progression, or Severe Exacerbation? @ -Exacerbation Poses a threat to life or bodily function? How? (Chest pain, USA, NC, pneumonia, PE, COPD, DKA, ARF, appy, cholecystitis, CVA, Diverticulitis, Homicidal, Suicidal, threat to staff... and all critical care pts) @ -Low likelihood at this time - Lab Data Result diagrams: 06/15/24 20:16 06/15/24 20:16 Lab Results 06/15/24 06/15/24 06/15/24 Range/Units 19:34 20:16 20:16 WBC 9.26 (4.50-10.00) 10*3/uL RBC 4.80 (4.10-5.20) 10*6/uL Hgb 14.3 (12.0-15.0) g/dL Hct 42.7 (37.2-46.3) % MCV 89.0 (80.0-97.0) fL MCH 29.8 (27.0-32.0) pg MCHC 33.5 (32.0-37.0) g/dL Plt Count 340 (140-440) 10*3/uL MPV 9.4 L (9.5-12.2) fL Immature Gran % (Auto) 0.3 % Neutrophils % 48.4 % Lymphocytes % 38.7 % Monocytes % 8.1 % Eosinophils % 3.5 % Basophils % 1.0 % Immature Gran # 0.03 (0.00-0.04) 10*3/uL Neutrophils # 4.49 (1.80-7.70) 10*3/uL Lymphocytes # 3.58 (0.90-5.00) 10*3/uL Monocytes # 0.75 (0.20-1.00) 10*3/uL Eosinophils # 0.32 (0.04-0.35) 10*3/uL Basophils # 0.09 (0.00-0.10) 10*3/uL PT 10.0 (10.0-12.5) sec INR 0.9 (<1.2) APTT 21.5 L (22.0-30.0) sec D-Dimer (<0.60) mg/L FEU Sodium (137-145) mmol/L Potassium (3.5-5.1) mmol/L Chloride (98-107) mmol/L Carbon Dioxide (22-30) mmol/L Anion Gap mmol/L BUN (7-17) mg/dL Creatinine (0.52-1.04) mg/dL Est GFR (CKD-EPI)AfAm (>60 ml/min/1.73 sqM) Est GFR (CKD-EPI)NonAf (>60 ml/min/1.73 sqM) Glucose (74-99) mg/dL POC Glucose (mg/dL) 181 H (70-110) mg/dL POC Glu Operations Director ID Godwin Jama Plasma Lactic Acid Thuan (0.7-2.0) mmol/L Calcium (8.4-10.2) mg/dL Magnesium (1.6-2.3) mg/dL Total Bilirubin (0.2-1.3) mg/dL AST (14-36) U/L ALT (4-34) U/L Alkaline Phosphatase (38-126) U/L Troponin I (0.000-0.034) ng/mL Total Protein (6.3-8.2) g/dL Albumin (3.5-5.0) g/dL TSH (0.465-4.680) mIU/L Urine Color Urine Appearance (Clear) Urine pH (5.0-8.0) Ur Specific [place] (1.001-1.035) Urine Protein (Negative) Urine Glucose (UA) (Negative) Urine Ketones (Negative) Urine Blood (Negative) Urine Nitrite (Negative) Urine Bilirubin (Negative) Urine Urobilinogen (<2.0) mg/dL Ur Leukocyte Esterase (Negative) Influenza Type A (PCR) (Not Detectd) Influenza Type B (PCR) (Not Detectd) RSV (PCR) (Not Detectd) SARS-CoV-2 (PCR) (Not Detectd) 06/15/24 06/15/24 06/15/24 Range/Units 20:16 20:16 20:16 WBC (4.50-10.00) 10*3/uL RBC (4.10-5.20) 10*6/uL Hgb (12.0-15.0) g/dL Hct (37.2-46.3) % MCV (80.0-97.0) fL MCH (27.0-32.0) pg MCHC (32.0-37.0) g/dL Plt Count (140-440) 10*3/uL MPV (9.5-12.2) fL Immature Gran % (Auto) % Neutrophils % % Lymphocytes % % Monocytes % % Eosinophils % % Basophils % % Immature Gran # (0.00-0.04) 10*3/uL Neutrophils # (1.80-7.70) 10*3/uL Lymphocytes # (0.90-5.00) 10*3/uL Monocytes # (0.20-1.00) 10*3/uL Eosinophils # (0.04-0.35) 10*3/uL Basophils # (0.00-0.10) 10*3/uL PT (10.0-12.5) sec INR (<1.2) APTT (22.0-30.0) sec D-Dimer (<0.60) mg/L FEU Sodium 138 (137-145) mmol/L Potassium 4.2 (3.5-5.1) mmol/L Chloride 104 (98-107) mmol/L Carbon Dioxide 25 (22-30) mmol/L Anion Gap 9 mmol/L BUN 21 H (7-17) mg/dL Creatinine 0.56 (0.52-1.04) mg/dL Est GFR (CKD-EPI)AfAm >90 (>60 ml/min/1.73 sqM) Est GFR (CKD-EPI)NonAf >90 (>60 ml/min/1.73 sqM) Glucose 167 H (74-99) mg/dL POC Glucose (mg/dL) (70-110) mg/dL POC Glu Operations Director ID Plasma Lactic Acid Thuan 1.3 (0.7-2.0) mmol/L Calcium 10.0 (8.4-10.2) mg/dL Magnesium 2.2 (1.6-2.3) mg/dL Total Bilirubin 0.4 (0.2-1.3) mg/dL AST 27 (14-36) U/L ALT 30 (4-34) U/L Alkaline Phosphatase 88 (38-126) U/L Troponin I <0.012 (0.000-0.034) ng/mL Total Protein 7.4 (6.3-8.2) g/dL Albumin 4.3 (3.5-5.0) g/dL TSH (0.465-4.680) mIU/L Urine Color Urine Appearance (Clear) Urine pH (5.0-8.0) Ur Specific [place] (1.001-1.035) Urine Protein (Negative) Urine Glucose (UA) (Negative) Urine Ketones (Negative) Urine Blood (Negative) Urine Nitrite (Negative) Urine Bilirubin (Negative) Urine Urobilinogen (<2.0) mg/dL Ur Leukocyte Esterase (Negative) Influenza Type A (PCR) (Not Detectd) Influenza Type B (PCR) (Not Detectd) RSV (PCR) (Not Detectd) SARS-CoV-2 (PCR) (Not Detectd) 06/15/24 06/15/24 06/15/24 Range/Units 20:16 20:16 20:35 WBC (4.50-10.00) 10*3/uL RBC (4.10-5.20) 10*6/uL Hgb (12.0-15.0) g/dL Hct (37.2-46.3) % MCV (80.0-97.0) fL MCH (27.0-32.0) pg MCHC (32.0-37.0) g/dL Plt Count (140-440) 10*3/uL MPV (9.5-12.2) fL Immature Gran % (Auto) % Neutrophils % % Lymphocytes % % Monocytes % % Eosinophils % % Basophils % % Immature Gran # (0.00-0.04) 10*3/uL Neutrophils # (1.80-7.70) 10*3/uL Lymphocytes # (0.90-5.00) 10*3/uL Monocytes # (0.20-1.00) 10*3/uL Eosinophils # (0.04-0.35) 10*3/uL Basophils # (0.00-0.10) 10*3/uL PT (10.0-12.5) sec INR (<1.2) APTT (22.0-30.0) sec D-Dimer 0.31 (<0.60) mg/L FEU Sodium (137-145) mmol/L Potassium (3.5-5.1) mmol/L Chloride (98-107) mmol/L Carbon Dioxide (22-30) mmol/L Anion Gap mmol/L BUN (7-17) mg/dL Creatinine (0.52-1.04) mg/dL Est GFR (CKD-EPI)AfAm (>60 ml/min/1.73 sqM) Est GFR (CKD-EPI)NonAf (>60 ml/min/1.73 sqM) Glucose (74-99) mg/dL POC Glucose (mg/dL) (70-110) mg/dL POC Glu Operations Director ID Plasma Lactic Acid Thuan (0.7-2.0) mmol/L Calcium (8.4-10.2) mg/dL Magnesium (1.6-2.3) mg/dL Total Bilirubin (0.2-1.3) mg/dL AST (14-36) U/L ALT (4-34) U/L Alkaline Phosphatase (38-126) U/L Troponin I (0.000-0.034) ng/mL Total Protein (6.3-8.2) g/dL Albumin (3.5-5.0) g/dL TSH (0.465-4.680) mIU/L Urine Color Colorless Urine Appearance Clear (Clear) Urine pH 6.5 (5.0-8.0) Ur Specific [place] 1.029 (1.001-1.035) Urine Protein Negative (Negative) Urine Glucose (UA) 4+ H (Negative) Urine Ketones Negative (Negative) Urine Blood Negative (Negative) Urine Nitrite Negative (Negative) Urine Bilirubin Negative (Negative) Urine Urobilinogen <2.0 (<2.0) mg/dL Ur Leukocyte Esterase Negative (Negative) Influenza Type A (PCR) Not Detected (Not Detectd) Influenza Type B (PCR) Not Detected (Not Detectd) RSV (PCR) Not Detected (Not Detectd) SARS-CoV-2 (PCR) Not Detected (Not Detectd) 06/15/24 Range/Units 22:09 WBC (4.50-10.00) 10*3/uL RBC (4.10-5.20) 10*6/uL Hgb (12.0-15.0) g/dL Hct (37.2-46.3) % MCV (80.0-97.0) fL MCH (27.0-32.0) pg MCHC (32.0-37.0) g/dL Plt Count (140-440) 10*3/uL MPV (9.5-12.2) fL Immature Gran % (Auto) % Neutrophils % % Lymphocytes % % Monocytes % % Eosinophils % % Basophils % % Immature Gran # (0.00-0.04) 10*3/uL Neutrophils # (1.80-7.70) 10*3/uL Lymphocytes # (0.90-5.00) 10*3/uL Monocytes # (0.20-1.00) 10*3/uL Eosinophils # (0.04-0.35) 10*3/uL Basophils # (0.00-0.10) 10*3/uL PT (10.0-12.5) sec INR (<1.2) APTT (22.0-30.0) sec D-Dimer (<0.60) mg/L FEU Sodium (137-145) mmol/L Potassium (3.5-5.1) mmol/L Chloride (98-107) mmol/L Carbon Dioxide (22-30) mmol/L Anion Gap mmol/L BUN (7-17) mg/dL Creatinine (0.52-1.04) mg/dL Est GFR (CKD-EPI)AfAm (>60 ml/min/1.73 sqM) Est GFR (CKD-EPI)NonAf (>60 ml/min/1.73 sqM) Glucose (74-99) mg/dL POC Glucose (mg/dL) (70-110) mg/dL POC Glu Operations Director ID Plasma Lactic Acid Thuan (0.7-2.0) mmol/L Calcium (8.4-10.2) mg/dL Magnesium (1.6-2.3) mg/dL Total Bilirubin (0.2-1.3) mg/dL AST (14-36) U/L ALT (4-34) U/L Alkaline Phosphatase (38-126) U/L Troponin I (0.000-0.034) ng/mL Total Protein (6.3-8.2) g/dL Albumin (3.5-5.0) g/dL TSH 0.497 (0.465-4.680) mIU/L Urine Color Urine Appearance (Clear) Urine pH (5.0-8.0) Ur Specific [place] (1.001-1.035) Urine Protein (Negative) Urine Glucose (UA) (Negative) Urine Ketones (Negative) Urine Blood (Negative) Urine Nitrite (Negative) Urine Bilirubin (Negative) Urine Urobilinogen (<2.0) mg/dL Ur Leukocyte Esterase (Negative) Influenza Type A (PCR) (Not Detectd) Influenza Type B (PCR) (Not Detectd) RSV (PCR) (Not Detectd) SARS-CoV-2 (PCR) (Not Detectd) Disposition Clinical Impression: COPD exacerbation Disposition: HOME SELF-CARE Condition: Good Instructions (If sedation given, give patient instructions): COPD (Chronic O bstructive Pulmonary Disease) (ED) Additional Instructions: Follow-up with PCP. Report back to ER with any new or worsening symptoms. You may continue taking your antibiotics for your sinus infection as prescribed. Take medication as prescribed. Prescriptions: Albuterol Sulfate [Albuterol Sulfate Hfa] 1 puff PO Q4-6H PRN #8.5 gm PRN Reason: Shortness Of Breath predniSONE 50 mg PO 5XD #5 tablet Is patient prescribed a controlled substance at d/c from ED?: No Referrals: Nonstaff,Physician [Primary Care Provider] - 1-2 days Time of Disposition: 23:08
[2024-06-15 23:28] VITALS: BP 131/65
[2024-06-15 23:35] VITALS: PULSE 98
== END 2024-06-15 23:39 | disposition home or self-care (01) ==
LOC: EC 19:19
DX: J44.1 Chronic obstructive pulmonary disease with (acute) exacerbation (principal); F17.200 Nicotine dependence, unspecified, uncomplicated; Z88.8 Allergy status to other drugs, medicaments and biological substances
CPT/HCPCS: 36415; 94640 ×2; 93005; 85379; 80053; 84443; 83605; 83735; 84484; 85025; 85610; 85730; 81003; 87636; 71046; 99285; 96374; J2919

== ENCOUNTER → 2024-09-05 | Outpatient (CLI) | payer MEDICARE, OTHER ==
[2024-09-05 15:41] LABS: ALT 17 U/L (8-44); AST 17 U/L (13-35); Albumin 4.5 g/dL (3.8-4.9); Albumin/Globulin Ratio 1.55 Ratio (1.60-3.17); Alkaline Phosphatase 76 U/L (41-126); Anion Gap 11.70 mmol/L (4.00-12.00); BUN/Creat Ratio 25.25 Ratio (12.00-20.00); Blood Urea Nitrogen 20.2 mg/dL (9.0-27.0); Calcium 9.6 mg/dL (8.7-10.3); Carbon Dioxide 25.3 mmol/L (21.6-31.8); Chloride 103 mmol/L (96-109); Globulin 2.9 g/dL (1.6-3.3); Glucose 151 mg/dL (70-110); Potassium 4.8 mmol/L (3.5-5.5); Rheumatoid Factor, Qnt <15 IU/mL (0-15); Sodium 140 mmol/L (135-145); Total Protein 7.4 g/dL (6.2-8.2)
== END | disposition home or self-care (01) ==
LOC: LABWHC1 12:03
PROVIDERS: ATTEND Registered Nurse
DX: E11.42 Type 2 diabetes mellitus with diabetic polyneuropathy (principal); M19.90 Unspecified osteoarthritis, unspecified site; Z79.4 Long term (current) use of insulin
CPT/HCPCS: 36415; 80053; 82043; 82570; 83036; 85652; 86038; 86140; 86431